=== PATIENT | male | born 1955 | race Caucasian/White ===

== ENCOUNTER 2022-11-28 16:22 | Outpatient (OUT) | payer BC, SELFPAY ==
--- NOTE | 2022-11-28 | XR_ITS ---
The [address] [address] Patient Name: YI VALVERDE MRN: [id number] date: 1955 Sex: M Assigned Patient Location: RAD Current Patient Location: RAD Accession/Order Number: [id number] Exam Date: 11/28/2022 16:35 Report Date: 11/28/2022 16:57 At the request of: MICHAEL BLANCO Procedure: XR chest 2V EXAM: XR chest 2V HISTORY: Cough, R05.9 COMPARISON: 01/03/2021 TECHNIQUE: PA and lateral views of the chest. FINDINGS: There is no focal airspace consolidation. There are prominence of interstitial markings at the left lung base. The lungs are mildly hyperinflated. The cardiomediastinal silhouette is not enlarged. No evidence of pleural effusion or pneumothorax are identified. No acute osseous abnormality. ACDF at lower cervical spine. XR/XR chest 2V IMPRESSION: No focal consolidation or pleural effusion. Lungs appear hyperinflated suggestive of obstructive lung disease. Mild atelectasis versus infiltrate in the left lung base. Recommend follow up imaging or CT chest if symptoms worsen or persist. Electronically authenticated by: ROBERT GUSMANU Date: 11/28/2022 16:57
== END 2022-11-28 16:23 | disposition home or self-care (01) ==
PROVIDERS: PCP Family Medicine; Visit Provider Family Medicine
DX: R05.9 Cough, unspecified (principal)
CPT/HCPCS: 71046

== ENCOUNTER 2022-12-11 07:59 | Outpatient (OUT) | payer BC, SELFPAY ==
--- NOTE | 2022-12-11 08:05 | CT_ITS ---
The [address] [address] Patient Name: YI VALVERDE MRN: [id number] date: 1955 Sex: M Assigned Patient Location: CT Current Patient Location: CT Accession/Order Number: [id number] Exam Date: 12/11/2022 08:10 Report Date: 12/11/2022 09:41 At the request of: MICHAEL BLANCO Procedure: CT chest wo con EXAM: CT chest wo con HISTORY: Atelectasis J98.11, Chronic Pulmonary Obstructive Disease COMPARISON: 11/28/2022 TECHNIQUE: Axial CT images were obtained of the chest without intravenous contrast. Multiplanar reconstructions were performed. CHEST FINDINGS: Lungs/Pleura: The lungs are clear. No pleural effusion or pneumothorax. Cardiovascular: The heart is normal in size. Mild coronary artery calcifications present.e The aorta and pulmonary arteries are unremarkable. Pericardium: No effusion. Mediastinum: Unremarkable. Lymph Nodes: No lymph node enlargement identified on this nonenhanced CT. Bones: No acute osseous abnormality. Cervical fusion hardware is partially visualized. Soft tissues: Unremarkable. Upper Abdomen: Unremarkable. CT/CT chest wo con IMPRESSION: 1. No acute abnormality of the chest. Electronically authenticated by: WESLEY VINES Date: 12/11/2022 09:41
--- NOTE | 2022-12-11 08:05 | RT_ITS ---
The [facility] Test Date: 2022-12-11 Pat Name: YI VALVERDE Department: Room: - Gender: Male Rod Placer: Devi aMldonado RRT : 1955 Requested By: MICHAEL BLANCO Order Number: [id number] Edgar MD: Leonides Arrieta Interpretive Statements Pulmonary function testing was completed according to ATS criteria. Findings were considered accurate and reproducible. Both pre- and post-bronchodilator values utilized for spirometry. No prior studies available for comparison. Spirometry (based on pre-bronchodilator values): -FEV1/FVC: Normal @ 80% -FEV1: Moderately reduced @ 78% -FVC: Mildly reduced @ 73% -There is no significant bronchodilator response. Lung volumes by plethysmography: -RV: Normal @ 94% -TLC: Normal @ 87% Diffusion capacity: -DLCO: Mild reduction @ 75% when corrected for Hb 14.7g/dL Flow-volume loop: -Mild restrictive pattern with an abnormal spike in the expiratory limb suggestive of a glottic maneuver (e.g. cough) Impressions: -Mild restictive pattern in spirometry, but no evidence of restriction as RV and TLC are normal: This is an obesity pattern based on BMI 46.2. Mild diffusion impairment. The obesity-induced restriction is obscuring any underlying obstruction. Mild diffusion impairment can be seen in, but not restricted to; cardiopulmonary vascular disorders, early interstitial lung disease, and early emphysema. Clinical correlation required. Electronically Signed On 12-11-2022 15:55:40 EDT by Leonides Arrieta
[2022-12-11 08:26] LABS: Hemoglobin 14.7 g/dL (14.0-18.0)
[2022-12-11] MEDS: ALBUTEROL SULFATE 2.5 MG/3 ML VIAL NEB IH (09:02)
== END 2022-12-11 08:00 | disposition home or self-care (01) ==
LOC: CT 07:59
PROVIDERS: PCP Family Medicine; Visit Provider Family Medicine
DX: J44.9 Chronic obstructive pulmonary disease, unspecified (principal); J98.11 Atelectasis
CPT/HCPCS: 36415; 71250; 85018; 94060; 94726; 94729

== ENCOUNTER 2023-03-10 16:49 | Outpatient (OUT) | payer BC, SELFPAY ==
[2023-03-10 17:08] LABS: Basophils Absolute Auto 0.1 10^3/uL (0.0-0.1); Eosinophils Absolute Auto 0.4 10^3/uL (0.0-0.7); Eosinophils Percent Auto 3.6 % (0.9-7.0); Hematocrit 47.4 % (42.0-54.0); Hemoglobin 15.8 g/dL (14.0-18.0); Immature Granulocytes Abs Auto 0.03 10^3/uL (0.00-0.03); Immature Granulocytes Pct Auto 0.3 % (0.0-0.5); Lymphocytes Percent Auto 18.4 % (20.5-60.0); Mean Corpuscular HGB Conc 33.3 g/dL (29.9-35.2); Mean Corpuscular Hemoglobin 31.5 pg (25.9-34.0); Mean Corpuscular Volume 94.4 fL (80.0-94.0); Mean Platelet Volume 9.4 fL (9.5-13.5); Monocytes Absolute Auto 1.1 10^3/uL (0.3-0.8); Monocytes Percent Auto 9.8 % (1.7-12.0); Neutrophils Absolute Auto 7.3 10^3/uL (1.4-6.5); Neutrophils Percent Auto 66.9 % (43.0-75.0); Platelet Count 325 10^3/uL (150-450); Red Blood Count 5.02 10^6/uL (4.70-6.10); White Blood Count 10.9 10^3/uL (4.0-11.0)
[2023-03-10 18:00] LABS: Alanine Aminotransferase 23 U/L (16-63); Albumin Globulin Ratio 0.9; Alkaline Phosphatase 119 U/L (46-116); Anion Gap 8.9; Aspartate Amino Transferase 15 U/L (15-37); BUN Creatinine Ratio 16.3; Bilirubin Total 0.5 mg/dL (0.2-1.0); Calcium 9.8 mg/dL (8.5-10.1); Carbon Dioxide 35.7 mmol/L (21.0-32.0); Chloride 100 mmol/L (98-107); Chol HDL Ratio 4.3; Cholesterol 226 mg/dL (<=200); Estimated GFR (African America >60 (>=60); Estimated GFR (Non-African Ame 50 (>=60); Free T3 3.14 pg/mL (2.18-3.98); Globulin 4.3 g/dL; Glucose 108 mg/dL (74-106); HDL Cholesterol 53 mg/dL (40-60); Potassium 3.6 mmol/L (3.5-5.1); Sodium 141 mmol/L (136-145); Thyroid Stimulating Hormone 5.191 uIU/mL (0.358-3.740); Total Protein 8.3 g/dL (6.4-8.2); Triglycerides 251 mg/dL (<=150); Uric Acid 7.4 mg/dL (3.5-7.2); VLDL CHOLESTEROL 50.2 mg/dL
[2023-03-10 18:01] LABS: Prostate Specific Antigen Scrn 0.65 ng/mL (<=4.00)
[2023-03-10 18:43] LABS: Estimated Average Glucose 137 mg/dL; Glycohemoglobin A1C 6.4 % (4.5-6.2)
[2023-03-12 12:09] LABS: Insulin 21.4 uIU/mL (2.6-24.9)
== END 2023-03-10 16:50 | disposition home or self-care (01) ==
LOC: LAB 16:53
PROVIDERS: PCP Family Medicine; Visit Provider Family Medicine
DX: R05.3 Chronic cough (principal); R53.83 Other fatigue; E78.5 Hyperlipidemia, unspecified; R73.09 Other abnormal glucose; Z12.5 Encounter for screening for malignant neoplasm of prostate; Z12.12 Encounter for screening for malignant neoplasm of rectum; I50.30 Unspecified diastolic (congestive) heart failure; I10 Essential (primary) hypertension
CPT/HCPCS: 36415; 80053; 80061; 83036; 83525; 83880; 84436; 84443; 84481; 84550; 85025; G0103

== ENCOUNTER 2023-03-12 13:04 | Outpatient (REF) | payer BC, SELFPAY ==
[2023-03-13 15:39] LABS: Occult Blood Negative
== END 2023-03-12 13:05 | disposition home or self-care (01) ==
LOC: LAB 13:04
PROVIDERS: PCP Family Medicine; Visit Provider Family Medicine
DX: Z12.12 Encounter for screening for malignant neoplasm of rectum (principal)
CPT/HCPCS: G0328

== ENCOUNTER 2023-09-12 09:32 | Outpatient (OUT) | payer BC, SELFPAY ==
--- NOTE | 2023-09-12 09:30 | CA_ITS ---
Patient Name: YI VALVERDE MR#: [id number] : 1955 Exam Date: 09/12/2023 Ordering Doctor: CATA BARAJAS ECHOCARDIOGRAM REPORT PROCEDURE: CA ECHO DOPPLER COMPLETE INDICATIONS: Ascending aortic aneurysm, hypertension COMPARISON: None. DESCRIPTION: COMPLETE ECHOCARDIOGRAM Real-time transthoracic echocardiography with 2D, M-mode, spectral and color flow Doppler performed. QUALITY: Technically difficult due to patients condition. 71 , 245#, BSA 2.25 m2, BP 158/104 LEFT VENTRICLE: Normal chamber size. Moderate concentric left ventricular hypertrophy. Normal systolic function. LV EF: Normal left ventricular ejection fraction, (>55%). DIASTOLIC: Normal diastolic function. ATRIAL SEPTUM: Visually appears intact. LEFT ATRIUM: Normal chamber size. RIGHT ATRIUM: Normal chamber size. RIGHT VENTRICLE: Normal chamber size. Normal right ventricular systolic function. TRICUSPID VALVE: Normal mobility and thickness. No stenosis with no regurgitation. MITRAL VALVE: Normal mobility and thickness. No evidence of mitral valve stenosis. There is no mitral annular calcification. Trivial mitral regurgitation. AORTIC VALVE: Normal trileaflet appearance. No visible sclerosis. Normal leaflet mobility. No evidence of aortic valve stenosis. No aortic regurgitation. AORTIC ROOT: The aortic root is mildly dilated measuring 4.0 cm. The ascending aorta is mildly dilated measuring 3.7 cm. Aortic arch is normal in size. PULMONIC VALVE: Normal thickness and mobility. No stenosis. Trivial regurgitation. PERICARDIUM: No evidence of pericardial effusion. IVC: Collapses with inspirations. IVC is normal in size. PLEURA: CONCLUSION: 1. Moderate concentric left ventricular hypertrophy with normal systolic function. LVEF is 55 to 60%. 2. Normal right ventricular size and systolic function. 3. Normal diastolic function. 4. No significant valvular dysfunction. 5. Mildly dilated aortic root measuring 4.0 cm. Mildly dilated ascending aorta measuring 3.7 cm. Adult Echocardiography Procedure Report Left Ventricle LVEDD (3.7 - 5.6 cm): 5.27 cm LVESD (2.2 - 4.0 cm): 3.95 cm LVIVS thickness (0.6 - 1.2 cm): 1.37 cm LVPW thickness (0.5 - 1.0 cm): 1.29 cm e': 0.05 m/s E - e': 9.28 LVOT Max Gradient: 2.04 mm[Hg] LVOT Area (cm2): 0.71 m/s Peak Velocity (LVOT): 0.71 m/s Mean Velocity (LVOT): 0.48 m/s LVOT Diameter 2.38 cm Left Atrium LA Volume Index (2D A2C): 20.04 ml/m2 Left Atrium Systolic Dimension: 3.54 cm Mitral Valve MV E to A Ratio: 0.71 Mitral Valve A-Wave Peak Velocity: 0.64 m/s Mitral Valve E-Wave Peak Velocity: 0.46 m/s Right Ventricle Aorta AO Root Diam: 4.04 cm Ascending Ao Diam: 3.47 cm Aortic Valve AoV Area (Peak Dago): 3.51 cm2, 3.51 cm2 AoV Area (VTI): 3.28 cm2, 3.28 cm2 Peak Velocity(Antegrade Flow): 0.91 m/s Peak Gradient(Antegrade Flow): 3.31 mm[Hg] Mean Velocity(Antegrade Flow): 0.60 m/s Mean Gradient(Antegrade Flow): 1.72 mm[Hg] Velocity Time Integral: 18.82 cm Tricuspid Valve Pulmonic Valve Peak Gradient: 3.59 mm[Hg], 2.54 mm[Hg] Right Atrium Dictated by: Jin Capellan M.D. on 09/12/2023 at 18:24 Approved by: Jin Capellan M.D. on 09/12/2023 at 18:29
== END 2023-09-12 09:33 | disposition home or self-care (01) ==
PROVIDERS: PCP Family Medicine; Visit Provider Nurse Practitioner
DX: I71.21 Aneurysm of the ascending aorta, without rupture (principal)
CPT/HCPCS: 93306

== ENCOUNTER 2023-10-21 09:37 | Outpatient (OUT) | payer BC, SELFPAY ==
--- NOTE | 2023-10-21 09:50 | CT_ITS ---
[address] [address] Patient Name: YI VALVERDE MRN: [id number] date: 1955 Sex: M Assigned Patient Location: LAB Current Patient Location: Accession/Order Number: [id number] Exam Date: 10/21/2023 10:05 Report Date: 10/22/2023 11:06 At the request of: HERIBERTO GOINS Procedure: CT angio abdomen pelvis EXAMINATION: CT angio chest, CT angio abdomen pelvis HISTORY: Aortic Aneurysm Without Rupture I71.9 COMPARISON: CT chest 12/11/2022, CT abdomen pelvis 01/03/2020 TECHNIQUE: After obtaining the patient's consent, CT images of the chest, abdomen and pelvis were obtained with non-ionic intravenous contrast material. Axial, Coronal, and Sagittal images. Multi-planar reformatted/3-D images were created to optimize visualization of vascular anatomy. Dose reduction techniques were achieved by using automated exposure control and/or adjustment of mA and/or kV according to patient size and/or use of iterative reconstruction technique. FINDINGS: PULM VASC: No pulmonary embolism or abnormal opacity. LUNGS: Mild chronic interstitial changes. No suspicious nodules or appreciable acute infiltrates. PLEURA: No mass, effusion, or pneumothorax. SOWMYA: No mass or adenopathy. MEDIASTINUM: No mass or adenopathy. CARDIAC: No enlargement, pericardial effusion, or pericardial thickening. CHEST WALL: No mass or axillary adenopathy. AORTA/VASCULAR: Ascending thoracic aorta approaches upper limits of normal, 3.9 cm in diameter. Unremarkable abdominal aorta. Mild atherosclerotic disease. CELIAC ARTERY: Moderate narrowing at origin. SMA: Mild atherosclerotic narrowing at origin. RENAL ARTERIES: Mild atherosclerotic narrowing. LIVER: No enlargement, atrophy, abnormal density, or significant focal lesion. BILIARY: No visible dilatation or calcification. PANCREAS: No lesion, fluid collection, ductal dilatation, or atrophy. SPLEEN: No enlargement or focal lesion. ADRENALS: No mass or enlargement. KIDNEYS: No mass, obstruction, or calcification. BOWEL/MESENTERY: No visible mass, obstruction, or bowel wall thickening. RETROPERITONEUM: No mass or adenopathy. LYMPHNODES: No pelvic lymphadenopathy. BLADDER: No stones or focal wall thickening. PELVIC ORGANS: Appropriate for age. ABDOMINAL WALL: No mass or hernia. BONES: No bony lesion or fracture. OTHER: Negative. CT/CT angio abdomen pelvis IMPRESSION: 1. No thoracic or abdominal aortic aneurysm or dissection. Mild atherosclerotic disease. Electronically authenticated by: OMID GU Date: 10/22/2023 11:06
--- NOTE | 2023-10-21 09:50 | CT_ITS ---
[address] [address] Patient Name: YI VALVERDE MRN: [id number] date: 1955 Sex: M Assigned Patient Location: LAB Current Patient Location: Accession/Order Number: [id number] Exam Date: 10/21/2023 10:05 Report Date: 10/22/2023 11:06 At the request of: HERIBERTO GOINS Procedure: CT angio chest EXAMINATION: CT angio chest, CT angio abdomen pelvis HISTORY: Aortic Aneurysm Without Rupture I71.9 COMPARISON: CT chest 12/11/2022, CT abdomen pelvis 01/03/2020 TECHNIQUE: After obtaining the patient's consent, CT images of the chest, abdomen and pelvis were obtained with non-ionic intravenous contrast material. Axial, Coronal, and Sagittal images. Multi-planar reformatted/3-D images were created to optimize visualization of vascular anatomy. Dose reduction techniques were achieved by using automated exposure control and/or adjustment of mA and/or kV according to patient size and/or use of iterative reconstruction technique. FINDINGS: PULM VASC: No pulmonary embolism or abnormal opacity. LUNGS: Mild chronic interstitial changes. No suspicious nodules or appreciable acute infiltrates. PLEURA: No mass, effusion, or pneumothorax. SOWMYA: No mass or adenopathy. MEDIASTINUM: No mass or adenopathy. CARDIAC: No enlargement, pericardial effusion, or pericardial thickening. CHEST WALL: No mass or axillary adenopathy. AORTA/VASCULAR: Ascending thoracic aorta approaches upper limits of normal, 3.9 cm in diameter. Unremarkable abdominal aorta. Mild atherosclerotic disease. CELIAC ARTERY: Moderate narrowing at origin. SMA: Mild atherosclerotic narrowing at origin. RENAL ARTERIES: Mild atherosclerotic narrowing. LIVER: No enlargement, atrophy, abnormal density, or significant focal lesion. BILIARY: No visible dilatation or calcification. PANCREAS: No lesion, fluid collection, ductal dilatation, or atrophy. SPLEEN: No enlargement or focal lesion. ADRENALS: No mass or enlargement. KIDNEYS: No mass, obstruction, or calcification. BOWEL/MESENTERY: No visible mass, obstruction, or bowel wall thickening. RETROPERITONEUM: No mass or adenopathy. LYMPHNODES: No pelvic lymphadenopathy. BLADDER: No stones or focal wall thickening. PELVIC ORGANS: Appropriate for age. ABDOMINAL WALL: No mass or hernia. BONES: No bony lesion or fracture. OTHER: Negative. CT/CT angio chest IMPRESSION: 1. No thoracic or abdominal aortic aneurysm or dissection. Mild atherosclerotic disease. Electronically authenticated by: OMID GU Date: 10/22/2023 11:06
[2023-10-21 10:00] LABS: Estimated GFR (African America >60 (>=60); Estimated GFR (Non-African Ame 59 (>=60)
== END 2023-10-21 09:38 | disposition home or self-care (01) ==
LOC: LAB 09:38
PROVIDERS: PCP Family Medicine; Visit Provider Surgery
DX: I71.9 Aortic aneurysm of unspecified site, without rupture (principal)
CPT/HCPCS: 36415; 71275; 74174; 82565; Q9967

== ENCOUNTER 2024-01-26 15:50 | Outpatient (OUT) | payer BC, SELFPAY ==
--- OUTSIDE RECORDS SUMMARY | 2024-01-26 15:58 | XMS_ITS | CCD ---
Author Organization [facility] Care Team Providers Care Rn First Assist Name Role Phone PHYSICIAN, DEFAULT Admitting Unavailable PHYSICIAN, DEFAULT Attending Unavailable PROVIDER, UNKNOWN Attending Unavailable PROVIDER, UNKNOWN Admitting Unavailable Sree Childs Unavailable Yue Tenorio Unavailable CATA BARAJAS Admitting Unavailable CATA BARAJAS Attending Unavailable NOA ., DR RODRIGUEZ Primary Care Unavailable HOY ., DR RODRIGUEZ Admitting Unavailable HOY ., DR RODRIGUEZ Attending Unavailable HOY ., DR RODRIGUEZ Primary Care Unavailable HOY ., DR RODRIGUEZ Consulting Unavailable RODOLFO BOWSER Admitting Unavailable RODOLFO BOWSER Attending Unavailable HOY ., DR RODRIGUEZ Primary Care Unavailable RODOLFO BOWSER Consulting Unavailable MISC, DR BECKETT Admitting Unavailable MISC, DR BECKETT Attending Unavailable HOY ., DR RODRIGUEZ Primary Care Unavailable HOY ., DR RODRIGUEZ Admitting Unavailable HOY ., DR RODRIGUEZ Attending Unavailable HOY ., DR RODRIGUEZ Primary Care Unavailable HOY ., DR RODRIGUEZ Admitting Unavailable HOY ., DR RODRIGUEZ Attending Unavailable HOY ., DR RODRIGUEZ Primary Care Unavailable NOA ., DR RODRIGUEZ Consulting Unavailable John Islas Unavailable [phone] MD Michael Latham Primary Care Provider [phone] MD John Islas Attending Provider Michael Latham Primary Care Physician Haris LAWSON Attending Unavailable YARELY MATTHEWS Attending Unavailable MICHAEL LATHAM Referring Unavailable John Islas Attending UnavailJohn King Admitting Unavaila Michael Garcia Primary Care Unavailable HERIBERTO GOINS Referring Unavailable HERIBERTO GOINS Attending Unavailable GLYNN GABRIEL Attending Unavailable JENN, CATA Attending Unavailable CATA BARAJAS Attending Unavailable BRISEIDA, HERIBERTO Referring Unavailable GOINS, HERIBERTO Referring Unavailable GOINS, HERIBERTO Referring Unavailable Allergies Allergy Classification Reported Allergen(s) Allergy Type Date of Onset Reaction(s) Facility (4 sources) Adhesive agent; Translations: [ADHESIVE] Drug allergy (disorder) 1 Redness of Skin [facility] Repository (3 sources) Amino Acids; Translations: [lisinopril] Drug Allergy [facility] Repository (2 sources) Adhesive bandage; Translations: [Adhesive Bandage] Drug allergy Eruption of skin (disorder) [facility] [place] (1 source) Lisinopril; Translations: [lisinopril] Drug Allergy Cough (finding) [facility] [place] (1 source) Doxazosin; Translations: [Cardura] Drug Allergy [facility] Repository (1 source) Adhesive agent Drug allergy (disorder) 3 [facility] Repository Medications Current Medications Medication Drug Class(es) Dates Sig (Normalized) Sig (Original) acetaminophen 325 mg / oxyCODONE hydrochloride 5 mg oral tablet (1 source) Opioid Agonist Start: 01-06-2020 take 1 tablet by mouth every six hours Oxycodone-Acetam inophen Active 1 TAB PO Q6H January 05, 2020 11:00pm Albuterol (1 source) beta2-Adrenergic Agonist Start: 03-19-2023 take 2 puff(s) by inhalation four times daily Albuterol (Eqv-Ventolin HFA) 2 puff(s), Inhalation, QID Shortness of breath or wheezing, Refill(s) 0 Start Date: 03/19/23 Status: Ordered amLODIPine 10 mg oral tablet (5 sources) Dihydropyridine Calcium Channel Terrell Start: 04-04-2023 take 2 tablets by mouth once daily amLODIPine 10 mg Tab 20 mg = 2 tab(s), Oral, Daily, Refills(s) 0 Start Date: 04/04/23 Status: Ordered take 1 tablet by maribel th every twenty-four hours amLODIPine Besylate 10 MG 1 tablet Orall y Once a day Active ARIPiprazole 2 mg oral tablet (2 sources) Atypical Antipsychotic take 1 tablet by mouth every twenty-four hours ARIPiprazole 2 MG 1 tablet Orally Once a day Active Aspir-81 (2 sources) Aspir-81 Active aspirin 81 mg delayed release oral tablet (6 sources) Platelet Aggregation Inhibitor, Nonsteroidal Anti-inflammatory Drug Start: 020 take 1 tablet by mouth once daily aspirin 81 mg Oral EC Tab 81 mg = 1 tab(s), Oral, Daily, Refills(s) 0 Start Date: 03/19/23 Status: Ordered atorvastatin 80 mg oral tablet (5 sources) HMG-CoA Reductase Inhibitor Start: 021 take 1 tablet by mouth once daily atorvastatin 80 mg Tab 80 mg = 1 tab(s), Oral, Daily, Refills(s) 0 Start Date: 02/22/21 Status: Ordered take 1 tablet by maribel th every twenty-four hours Atorvastatin Calcium 40 MG 1 tablet Oral ly Once a day Active 24 hr buPROPion hydrochloride 300 mg extended release oral tablet (5 sources) Aminoketone Start: 03-19-2023 take 1 tablet by mouth once daily Wellbutrin XL 300 mg/24 hours Tab-ER 300 mg = 1 tab(s), Oral, Daily, Refills(s) 0 Start Date: 03/19/23 Status: Ordered take 1 tablet by maribel every twenty-four hours buPROPion HCl ER (SR) 150 MG 1 tablet in the morning Orally Once a day Active carvedilol 25 mg oral tablet (5 sources) alpha-Adrenergic Terrell, beta-Adrenergic Terrell Start: 03-19-2023 take 1 tablet by mouth twice daily carvedilol 25 mg Tab 25 mg = 1 tab(s), Oral, BID, Refills(s) 0 Start Date: 03/19/23 Status: Ordered cloNIDine hydrochloride 0.3 mg oral tablet (8 sources) Central alpha-2 Adrenergic Agonist Start: 03-10-2020 cloNIDine 0.3 mg Tab See Instructions, Take one tablet QAM and two QPM Start Date: 03/10/20 Status: Ordered Start: 01-06-2020 take 0.1 mg by mouth twice susan ly Clonidine Hcl Active 0.1 MG PO Twice daily January 05, 2020 11:00pm take 1 tablet by maribel th twice daily cloNIDine HCl 0.3 MG 1 tablet Orally twice daily Active cloNIDine HCl Ac tive codeine sulfate 15 mg oral tablet (2 sources) Opioid Agonist Start: 01-01-2023 take 1 tablet by mouth four times daily as needed Codeine Sulfate 15 MG 1 tablet as needed Orally up to four times a day for 30 days Dec, Active codeine phosphate 2 mg/ml / guaiFENesin 20 mg/ml oral solution (2 sources) Opioid Agonist Start: 01-01-2023 take 10 mL by mouth every four hours as needed guaiFENesin-Codei ne 100-10 MG/5ML 10 mL as needed Orally every 4 hrs Dec, Active DULoxetine (2 sources) Serotonin and Norepinephrine Reuptake Inhibitor DULoxetine HCl Active Eye Health - (4 sources) Eye Health - as directed Orally Active Fish Oils (4 sources) Fish Oil Active fluticasone propionate 0.05 mg/actuat metered dose nasal spray (4 sources) Corticosteroid Start: 12-26-2022 Fluticasone Propionate 50 MCG/ACT 2 spray in left nostril, 1 spray in right nostril Nasally Once a day for 30 days Dec, Active Start: 12-26-2022 Fluticasone Pr opionate 50 MCG/ACT 2 spray in left nostril, 1 spray in right nostril Nasally Once a day for 30 days Dec, Active fluticasone / vilanterol (1 source) Corticosteroid, beta2-Adrenergic Agonist Start: 02-22-2021 take 1 puff(s) by inhalation once daily Breo Ellipta 100 mcg-25 mcg inhalation powder 1 puff(s), Inhalation, Daily, Refill(s) 2, 30 dose unit Start Date: 02/22/21 Status: Ordered hydroCHLOROthiazide 12.5 mg / irbesartan 150 mg oral tablet (5 sources) Thiazide Diuretic, Angiotensin 2 Receptor Terrell Start: 03-10-2020 take 1 tablet by mouth twice daily hydrochlorothi azide-irbesart an 12.5 mg-150 mg Tab 1 tab(s), Oral, BID, Refill(s) 0 Start Date: 03/10/20 Status: Ordered take 1 tablet by maribel every twenty-four hours Irbesartan-hydroCHLOROthiazide 150-12.5 MG 1 tablet Orally Once a day Active irbesartan 150 mg oral tablet (2 sources) Angiotensin 2 Receptor Terrell take 1 tablet by mouth every twenty-four hours Irbesartan 150 MG 1 tablet Orally Once a day Active Irbesartan-Hydrochlor othiazide (1 source) Start: take 1 tablet by mouth once daily at bedtime Irbesartan-Hydrochlo rothiazide Active 1 TAB PO Daily at bedtime January 05, 2020 11:00pm levothyroxine sodium 0.075 mg oral tablet (1 source) l-Thyroxine Start: take 1 tablet by mouth once daily levothyroxine 75 mcg (0.075 mg) Tab 75 mcg = 1 tab(s), Oral, Daily, Refills(s) 0 Start Date: 03/19/23 Status: Ordered meloxicam 15 mg oral tablet (1 source) Nonsteroidal Anti-inflammatory Drug Start: take 15 mg by mouth once daily in the morning Meloxicam Active 15 MG PO Every morning January 05, 2020 11:00pm metoclopramide 10 mg oral tablet (1 source) Dopamine-2 Receptor Antagonist Start: take 1 tablet by mouth three times daily Reglan 10 mg Tab 10 mg = 1 tab(s), Oral, TID, Refills(s) 0 Start Date: 04/04/23 Status: Ordered metoprolol tartrate 100 mg oral tablet (2 sources) beta-Adrenergic Terrell take 1 capsule by mouth once daily Metoprolol Succinate 100 MG 1 capsule Orally Once a day Active mirtazapine 30 mg oral tablet (5 sources) Start: take 1 tablet by mouth once daily at bedtime mirtazapine 30 mg Tab 30 mg = 1 tab(s), Oral, Once a day (at bedtime), Refills(s) 0 Start Date: 03/19/23 Status: Ordered Multi Vitamin+ (1 source) Start: Multi Vitamin+ Refill(s) 0 Start Date: 01/05/20 Status: Ordered Multivitamin preparation (4 sources) Multivitamin Act eyal Multivitamin-Minerals -Lutein (Multivitamin 50 Plus) Tablet (1 source) Start: Multivitamin-Mineral s-Lutein (Multivitamin 50 Plus) Tablet Active 1 TAB PO Daily at bedtime January 05, 2020 11:00pm Naproxen (2 sources) Nonsteroidal Anti-inflammatory Drug Naproxen Active [place] 0-Zjc-Ign-Fish Oil (Fish Oil) 1,200 (144-216) mg Capsule (1 source) Start: take 1 capsule by mouth once daily at bedtime [place] 6-Qeu-Lcc-Fish Oil (Fish Oil) 1,200 (144-216) mg Capsule Active 1200 CAP PO Daily at bedtime January 05, 2020 11:00pm omeprazole 40 mg delayed release oral capsule (4 sources) Proton Pump Inhibitor take 1 capsule by mouth once daily Omeprazole 40 MG 1 capsule 30 minutes before morning meal Orally Once a day Active oxyCODONE hydrochloride 5 mg oral capsule (1 source) Opioid Agonist Start: take 5 mg by mouth every eight hours Oxycodone Active 5 MG PO Q8H 10 3 January 07, 2020 pantoprazole 40 mg delayed release oral tablet (1 source) Proton Pump Inhibitor Start: take 1 tablet by mouth once daily Pantoprazole [address] Tab 40 mg = 1 tab(s), Oral, Daily, Refills(s) 0 Start Date: 04/04/23 Status: Ordered Probiotic (4 sources) Probiotic Active simvastatin 40 mg oral tablet (3 sources) HMG-CoA Reductase Inhibitor Start: take 40 mg by mouth once daily at bedtime Simvastatin Active 40 MG PO Daily at bedtime January 05, 2020 11:00pm spironolactone 25 mg oral tablet (2 sources) Aldosterone Antagonist Spironolactone 25 MG 1 tablet Orally Active tamsulosin hydrochloride 0.4 mg oral capsule (1 source) alpha-Adrenergic Terrell Start: take 0.4 mg by mouth once daily in the morning Tamsulosin Active 0.4 MG PO Every morning January 05, 2020 11:00pm Testosterone (4 sources) Androgen Testosterone Act eyal tiZANidine 4 mg oral tablet (1 source) Central alpha-2 Adrenergic Agonist Start: take 2 tablets by mouth at bedtime tiZANidine 4 mg Tab 8 mg = 2 tab(s), Oral, Bedtime, Refills(s) 0 Start Date: 03/19/23 Status: Ordered Trelegy Ellipta 200 mcg-62.5 mcg-25 mcg/inh inhalation powder (1 source) Start: 11-15-2 023 take 1 puff(s) by inhalation once daily Trelegy Ellipta 200 mcg-62.5 mcg-25 mcg/inh inhalation powder 1 puff(s), Inhalation, Daily, Refill(s) 0 Start Date: 03/19/23 Status: Ordered Completed/Discontinued Medications Medication Drug Class(es) Dates Sig (Normalized) Sig (Original) benzonatate 100 mg oral capsule (2 sources) Non-narcotic Antitussive take 1 capsule by mouth every eight hours Benzonatate 100 MG 1 capsule as needed Orally Three times a day for 30 days Not-Taking/PRN ciprofloxacin 500 mg oral tablet (1 source) Quinolone Antimicrobial Start: 01-06-2020 End: 01-07-2020 take 500 mg by mouth once daily in the morning Ciprofloxacin Hcl Discontinued 500 MG PO Every morning January 05, 2020 11:00pm January 07, 2020 7:54am ketorolac tromethamine 10 mg oral tablet (1 source) Nonsteroidal Anti-inflammatory Drug, Cyclooxygenase Inhibitor Start: 01-06-2020 End: 01-06-2020 Ketorolac Discontinued TABLET January 05, 2020 11:00pm January 06, 2020 7:18am ondansetron 4 mg disintegrating oral tablet (1 source) Serotonin-3 Receptor Antagonist Start: 01-06-2020 End: 01-06-2020 Ondansetron Discontinued January 05, 2020 11:00pm January 06, 2020 7:16am Triamcinolone (10 sources) Corticosteroid Start: 04-10-2021 Kenalog -40 mg Apr, 40 mg Start: 12-19-2020 Kenalog -40 mg Dec, 40 mg Problems Active Problems Problem Classification Problem Date Documented Date Episodic/Chronic Aortic; peripheral; and visceral artery aneurysms (5 sources) Aneurysm of ascending aorta; Translations: [Aortic ectasia, unspecified site] Onset: 07-25-2022 03-19-2023 Chronic Calculus of urinary tract (1 source) Kidney stone 01-05-2020 Episodic Cardiac dysrhythmias (1 source) Palpitations; Translations: [Palpitations] 03-23-2021 Episodic Chronic obstructive pulmonary disease and bronchiectasis (5 sources) Chronic obstructive lung disease; Translations: [Chronic obstructive pulmonary disease, unspecified] 03-19-2023 Chronic Conduction disorders (3 sources) Right bundle branch block; Translations: [Unspecified right bundle-branch block] Onset: 05-30-2023 03-19-2023 Chronic Diabetes mellitus without complication (1 source) Diabetes mellitus 03-19-2023 Chronic Disorders of lipid metabolism (7 sources) Mixed hyperlipidemia; Translations: [Mixed hyperlipidemia] Onset: 12-07-2021 Chronic Esophageal disorders (2 sources) Gastro-esophageal reflux disease without esophagitis; Translations: [Gastro-esophageal reflux disease without esophagitis] Onset: 10-07-2023 Chronic Essential hypertension (8 sources) Essential (primary) hypertension; Translations: [Essential hypertension] Onset: 01-05-2022 Chronic Genitourinary symptoms and ill-defined conditions (1 source) Nocturia 01-05-2020 Episodic Hyperplasia of prostate (1 source) Benign prostatic hypertrophy with outflow obstruction 07-17-2020 Chronic Mood disorders (1 source) Depressive disorder 03-19-2023 Chronic Neoplasms of unspecified nature or uncertain behavior (1 source) Neoplasm of uncertain behavior of skin 09-23-2018 Episodic Osteoarthritis (12 sources) Arthritis of right glenohumeral joint; Translations: [Primary osteoarthritis, right shoulder] Onset: 04-10-2021 Resolved: 04-10-2021 Chronic Other and unspecified benign neoplasm (1 source) Benign neoplasm of bladder 02-22-2021 Episodic Other connective tissue disease (6 sources) Supraspinatus tear; Translations: [Unspecified rotator cuff tear or rupture of right shoulder, not specified as traumatic] Episodic Other lower respiratory disease (1 source) Other disorders of lung Episodic Other lower respiratory disease (3 sources) Chronic cough; Translations: [Chronic cough] Onset: 04-04-2023 Episodic Other nutritional; endocrine; and metabolic disorders (2 sources) Body mass index 40+ - severely obese; Translations: [Body mass index (BMI) 45.0-49.9, adult] Onset: 04-04-2023 Chronic Other nutritional; endocrine; and metabolic disorders (1 source) Morbid obesity 03-19-2023 Chronic Other screening for suspected conditions (not mental disorders or infectious disease) (5 sources) Standard chest X-ray abnormal; Translations: [Abnormal findings on diagnostic imaging of other specified body structures] 03-10-2020 Chronic Other skin disorders (1 source) Multiple skin tags 09-23-2018 Episodic Other skin disorders (1 source) Senile hyperkeratosis 10-07-2018 Episodic Other upper respiratory disease (5 sources) Allergic rhinitis; Translations: [Allergic rhinitis, unspecified] 03-19-2023 Chronic Other upper respiratory disease (1 source) Allergic rhinitis, unspecified Chronic Other upper respiratory infections (1 source) Acute upper respiratory infection, unspecified Episodic Spondylosis; intervertebral disc disorders; other back problems (1 source) Cervical disc disorder 03-19-2023 Chronic Thyroid disorders (2 sources) Hypothyroidism, unspecified; Translations: [Hypothyroidism, unspecified] Onset: 10-07-2023 Chronic Unclassified (1 source) ANEURYSM ASCEND AORTA W/O RUPTURE; Translations: [ANEURYSM ASCEND AORTA W/O RUPTURE] Onset: 08-18-2022 Unclassified (1 source) Cough, unspecified; Translations: [Cough, unspecified] Onset: 03-18-2023 Unclassified (1 source) Aneurysm of the ascending aorta, without rupture; Translations: [Aneurysm of the ascending aorta, without rupture] Onset: 07-25-2022 Past or Other Problems Problem Classification Problem Date Documented Da te Episodic/Chronic Other connective tissue disease (1 source) Unspecified rotator cuff tear or rupture of right shoulder, not specified as traumatic Onset: 04-10-2021 Resolved: 04-10-2021 Episodic Other non-traumatic joint disorders (1 source) Pain in right shoulder Onset: 04-10-2021 Resolved: 04-10-2021 Episodic Other screening for suspected conditions (not mental disorders or infectious disease) (5 sources) Encounter for screening for malignant neoplasm of rectum; Translations: [Encounter for screening for malignant neoplasm of prostate] Onset: 12-08-2021 Episodic Unclassified (1 source) Cough R05.9 Unclassified (1 source) Contact with and (suspected) exposure to covid-19 Z20.822 Unclassified (1 source) Aneurysm of the ascending aorta, without rupture; Translations: [Aneurysm of the ascending aorta, without rupture] Onset: 10-10-2023 Viral infection (1 source) COVID-19 Onset: 11-19-2021 Resolved: 11-19-2021 Results Test Name Value Interpretation Reference Range Facility Office Visiton 01-16-2024 Follow-up visit [id number] Yi Driver 1955 M Date Provider Department Center 01/16/2024 Yazan-JENN, CATA BH CARD [facility] Family History Problem Relation Age of Onset Coronary artery disease Sister Coronary artery disease Maternal Grandfather Family Status - Relation Status Age at Sister Maternal Grandfather Level of Service:82563 [place] OFFICE/OUTPATIENT ESTABLISHED LOW MDM 20 MIN Reason for Visit and Comments: Hyperlipidemia [182] Hypertension [141212] - Pt here for three month follow up [facility] 36on 10-27-2023 36 Per ALG pt is to double coreg [facility] Telephoneon 10-24-2023 Telephone [id number] Yi Driver 1955 M Provider Department Center 10/24/2023 113-PATRICIA, HVCVASENDO [facility] Family History Problem Relation Age of Onset Coronary artery disease Sister Coronary artery disease Maternal Grandfather Family Status - Relation Status Age at Sister Maternal Grandfather [facility] 36on 10-15-2023 36 Patient called with BP's for you since you restarted carvedilol. 147/100 136/109 HR 115 143/106 HR 109 He takes carvedilol at 4am and 4pm. The readings he gave me were taking just before his second dose at 4pm. Did you want to change the dosage? Please advise. Thanks. [facility] Telephoneon 10-15-2023 Telephone [id number] Yi Driver 1955 M Provider Department Center 10/15/2023 928-SRIKANTH RITCHIE MARY [facility] Family History Problem Relation Age of Onset Coronary artery disease Sister Coronary artery disease Maternal Grandfather Family Status - Relation Status Age at Sister Maternal Grandfather [facility] Office Visiton 10-10-2023 Follow-up visit [id number] Yi Driver 1955 M Date Provider Department Center 10/10/2023 3848-GLYNN GABRIEL M[facility] Family History Problem Relation Age of Onset Coronary artery disease Sister Coronary artery disease Maternal Grandfather Family Status - Relation Status Age at Sister Maternal Grandfather Level of Service:14878 [place] OFFICE/OUTPATIENT ESTABLISHED LOW MDM [address] [facility] Orders Onlyon 10-10-2023 Orders Only [id number] Yi Driver 1955 M Date Provider Department Center 10/10/2023 895-ANA BOURGEOIS MARY [facility] Family History Problem Relation Age of Onset Coronary artery disease Sister Coronary artery disease Maternal Grandfather Family Status - Relation Status Age at Sister Maternal Grandfather [facility] Office Visiton 10-07-2023 Follow-up visit [id number] Yi Driver 1955 M Date Provider Department Center 10/07/2023 50489-IPORRHERIBERTO GOINS HVCVASENDO [facility] Family History Problem Relation Age of Onset Coronary artery disease Sister Coronary artery disease Maternal Grandfather Family Status - Relation Status Age at Sister Maternal Grandfather Level of Service:54164 NC OFFICE/OP CONSLTJ NEW/EST PT HIGH MDM 55 MINUTES Reason for Visit and Comments: New Patient [632] - Ascending aortic aneurysm, Ref by Cata Barajas [facility] 36on 09-22-2023 36 Regarding echo result from 09/12/2023: Srikanth. He was supposed to F/U with CT Surgery in August? See if he did somewhere other than [place], If not he needs an appointment. So AO root was 3.5 cm on last echo (2022) and now 4.0 cm- and ascending aorta is 3.7 cm. Make sure his B/P is staying controlled < 130/80 please and thank you From: Srikanth Ritchie MA Sent: 09/18/2023 3:34 PM EDT To: Cata Barajas NP Subject: RE: Scan He was never scheduled with CT surgery. I don't see a referral to them either. I'm guessing he needs one now? TIGIST Mendoza MA Well sure, increase of 0.5 cm is worrisome Spoke with patient's and she said patient is agreeable to CT surgery referral. Order [facility] surgery at [facility]. Normal [facility] Office Visiton 05-30-2023 Follow-up visit [id number] Yi Driver 1955 M Date Provider Department Center 05/30/2023 120-CATA BARAJAS Family History Problem Relation Age of Onset Coronary artery disease Sister Coronary artery disease Maternal Grandfather Family Status - Relation Status Age at Sister Maternal Grandfather Level of Service:66498 NC OFFICE/OUTPATIENT ESTABLISHED MOD MDM 30 MIN Normal [facility] COVID/FLU/RSV RT-PCRon 04-25 SARS-CoV-2 (COVID-19) RNA TEGAN+probe Ql (Unsp spec) Negative [facility] [employer] Other COVID/FLU/RSV RT-PCR Negative [facility] Other Facesheeton 04-07-2023 Facesheet [id number] 6#1.00TIFF Normal [facility] Ambulatory Visit Summaryon 1 06-05-2022 Ambulatory Visit Summary YI DRIVER :1955 Visit Date:04/04/2023 Ambulatory Visit Instructions Your Care Team Attending Physician - LULU JEFFERSON, Haris De Leon Primary Care Physician - Noa JEFFERSON, Michael This Is Your Medications List Contact prescribing physician if questions or concerns albuterol (Albuterol (Eqv-Ventolin HFA)) amlodipine (amLODIPine 10 mg Tab) aspirin (aspirin 81 mg Oral EC Tab) atorvastatin (atorvastatin 80 mg Tab) buPROPion (Wellbutrin XL 300 mg/24 hours Tab-ER) carvedilol (carvedilol 25 mg Tab) clonidine (cloNIDine 0.3 mg Tab) fluticasone-vilanter ol (Breo Ellipta 100 mcg-25 mcg inhalation powder) fluticasone/umeclidi nium/vilanterol (Trelegy Ellipta 200 mcg-62.5 mcg-25 mcg/inh inhalation powder) hydrochlorothiazide- irbesartan (hydrochlorothiazide -irbesartan 12.5 mg-150 mg Tab) levothyroxine (levothyroxine 75 mcg (0.075 mg) Tab) metoclopramide (Reglan 10 mg Tab) mirtazapine (mirtazapine 30 mg Tab) multivitamin (Multi Vitamin+) pantoprazole (Pantoprazole [address] Tab) tizanidine (tiZANidine 4 mg Tab) Procedures Performed Cystoscopy (07/17/2020), exicison skin lesions (09/30/2018), Ankle fusion, Arthroscopy of shoulder, History of cervical spine surgery, Repair of umbilical hernia. Discharge Vitals Heart Rate (Peripheral) 70 Respiratory Rate 16 Blood Pressure 120/84 Height 175 cm Height 69 in Weight 142.9 kg Weight 314.38 lb BMI 46.66 Medications What How Much When Instructions Unchanged albuterol (Albuterol (Eqv-Ventolin HFA)) 2 Puffs Inhalation 4 times a day as needed for Shortness of breath or wheezing Contact prescribing physician if questions or concerns Unchanged amlodipine (amLODIPine 10 mg Tab) 2 Tablets By Mouth Every day Contact prescribing physician if questions or concerns Unchanged aspirin (aspirin 81 mg Oral EC Tab) 1 Tablets By Mouth Every day Contact prescribing physician if questions or concerns Unchanged atorvastatin (atorvastatin 80 mg Tab) 1 Tablets By Mouth Every day Contact prescribing physician if questions or concerns Unchanged buPROPion (Wellbutrin XL 300 mg/ 24 hours Tab-ER) 1 Tablets By Mouth Every day Contact prescribing physician if questions or concerns Unchanged carvedilol (carvedilol 25 mg Tab) 1 Tablets By Mouth 2 times a day Contact prescribing physician if questions or concerns Unchanged clonidine (cloNIDine 0.3 mg Tab) See instructions Take one tablet QAM and two QPM Contact prescribing physician if questions or concerns Unchanged fluticasone-vilanter ol (Breo Ellipta 100 mcg-25 mcg inhalation powder) 1 Puffs Inhalation Every day 30 dose unit Contact prescribing physician if questions or concerns Unchanged fluticasone/ umeclidinium/ vilanterol (Trelegy Ellipta 200 mcg-62.5 mcg-25 mcg/ inh inhalation powder) 1 Puffs Inhalation Every day Contact prescribing physician if questions or concerns Unchanged hydrochlorothiazide- irbesartan (hydrochlorothiazide -irbesartan 12.5 mg-150 mg Tab) 1 Tablets By Mouth 2 times a day Contact prescribing physician if questions or concerns Unchanged levothyroxine (levothyroxine 75 mcg (0.075 mg) Tab) 1 Tablets By Mouth Every day Contact prescribing physician if questions or concerns Unchanged metoclopramide (Reglan 10 mg Tab) 1 Tablets By Mouth 3 times a day Contact prescribing physician if questions or concerns Unchanged mirtazapine (mirtazapine 30 mg Tab) 1 Tablets By Mouth Once a day (at bedtime) Contact prescribing physician if questions or concerns Unchanged multivitamin (Multi Vitamin+) Contact prescribing physician if questions or concerns Unchanged pantoprazole (Pantoprazole [address] Tab) 1 Tablets By Mouth Every day Contact prescribing physician if questions or concerns Unchanged tizanidine (tiZANidine 4 mg Tab) 2 Tablets By Mouth At bedtime Contact prescribing physician if questions or concerns Medications and Immunizations Administered Not Given influenza virus vaccine, inactivated, Patient Refuses Allergies lisinopril (Cough) Adhesive Bandage (Rash) Problems Ongoing - Any problem that you are currently receiving treatment for. Abnormal CT scan, pelvis Allergic rhinitis Aneurysm of ascending aorta Arthritis Bladder tumor BMI 45.0-49.9, adult BPH with obstruction/lower urinary tract symptoms Cervical disc disease Chronic cough Chronic obstructive lung disease Depression Diabetes Essential hypertension HTN (hypertension) Kidney stone Mixed hyperlipidemia Morbid obesity Neoplasm of uncertain behavior of skin Nocturia Right bundle branch block Seborrheic keratoses Skin tags, multiple acquired Patient Survey You may receive a survey via text or e-mail asking about your office visit. Please share your experience with us by completing your survey. We appreciate your feedback and thank you for choosing us for your care. 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 Order #: [id number] CLICK HERE TO VIEW EXAM ECHOCARDIOGRAM REPORT PROCEDURE: CARDIO PULMONARY ECHOCARDIO M/2D COMP INDICATIONS: Aneurysm of ascending aorta, hypertesnion COMPARISON: None. DESCRIPTION: COMPLETE ECHOCARDIOGRAM Real-time transthoracic echocardiography with 2D, M-mode, spectral and color flow Doppler performed. QUALITY: Technically difficult due to patients condition. LEFT VENTRICLE: Normal chamber size. Mild concentric left ventricular hypertrophy. LV EF: Normal left ventricular ejection fraction, (55%). DIASTOLIC: Normal diastolic function. ATRIAL SEPTUM: LEFT ATRIUM: Normal chamber size. RIGHT ATRIUM: Normal chamber. RIGHT VENTRICLE: Normal chamber size. Normal right ventricular systolic function. TRICUSPID VALVE: Normal mobility and thickness. No stenosis with trivial regurgitation. MITRAL VALVE: Normal mobility and thickness. No evidence of mitral valve stenosis. There is no mitral annular calcification. No mitral regurgitation. AORTIC VALVE: Normal trileaflet appearance. No visible sclerosis. Normal leaflet mobility. No evidence of aortic valve stenosis. No aortic regurgitation. AORTIC ROOT: Normal in size the ascending aorta is normal in size, measuring 3.5 cm, measuring 3.5 cm. PULMONIC VALVE: Not well visualized. No stenosis. Trivial regurgitation. PERICARDIUM: No evidence of pericardial effusion. IVC: Collapses with inspirations. PLEURA: CONCLUSION: 1. Normal ventricular systolic function. Mild concentric left ventricular hypertrophy. LVEF is 55%. 2. No significant valvular dysfunction. 3. Normal size ascending aorta and aortic root at 3.5 cm. 4. No pericardial effusion. Adult Echocardiography Procedure Report Left Ventricle LVEDD (3.7 - 5.6 cm): 4.89 cm LVESD (2.2 - 4.0 cm): 2.92 cm LVIVS thickness (0.6 - 1.2 cm): 1.22 cm LVPW thickness (0.5 - 1.0 cm): 1.42 cm e': 0.08 m/s E - e': 6.70 LVOT Max Gradient: 1.47 mm[Hg] Peak Velocity (LVOT): 0.61 m/s LVOT Diameter 2.29 cm Left Ventricular Ejection Fraction: 55% Left Atrium Left Atrium Systolic Dimension: 3.43 cm Mitral Valve MV E to A Ratio: 1.05 Mitral Valve A-Wave Peak Velocity: 0.54 m/s Mitral Valve E-Wave Peak Velocity: 0.57 m/s Right Ventricle Aorta AO Root Diam: 3.55 cm Aortic Valve AoV Area (Peak Dago): 2.63 cm2, 2.63 cm2 Peak Velocity(Antegrade Flow): 0.95 m/s Peak Gradient(Antegrade Flow): 3.61 mm[Hg] Tricuspid Valve Pulmonic Valve Peak Velocity: 0.76 m/s, 0.99 m/s Peak Gradient: 2.30 mm[Hg], 3.89 mm[Hg] Right Atrium Right Atrium Systolic Pressure: 88.85 ml, 88.85 ml Dictated by: Jin Capellan M.D. on 08/12/2022 at 16:30 Approved by: Jin Capellan M.D. on 08/12/2022 at 16:34 Normal [facility] INSULINon 12-10-2021 Insulin 14.3 uIU/mL Normal 2.6-24.9 [facility] Comment on above: Performed By: #### I NSULIN #### [facility] [address] [place] [address] Dr. Neo Mccall TESTOSTERONE, TOTALon 2021 Testosterone [Mass/Vol] 269 ng/dL Normal 264-916 [facility] Comment on above: Result Comment: Adul t male reference interval is based on a population of healthy nonobese males (BMI <30) between 19 and 39 years old. Raya et.al. JCEM 2017,102;9210-7305. PMID: [id number]. Performed By: #### T ESTTOT #### [facility] [address] [place] [address] Dr. Neo Mccall OCC BLD IMMUNO SCREENon OCCULT BLOOD Negative Normal NEGATIVE [facility] Comment on above: Performed By: #### O BSCRN ####[facility] [id number] [place] [address]Dr. Neo Mccall CBC AUTO DIFFon 12-07-2021 BASO # 0.1 103/ul Normal 0.0-0.1 [facility] Comment on above: Performed By: #### C BC #### [facility] [address] [place] [address] Dr. Neo Mccall Basophils/100 WBC (Bld) 0.9 % Normal 0.2-2.0 [facility] Comment on above: Performed By: #### C BC #### [facility] [address] [address] [address] Neo Mccall EO # 0.4 103/ul Normal 0.0-0.7 [facility] Comment on above: Performed By: #### C BC #### [facility] [address] [place] [address] Dr. Neo Mccall Eosinophils/100 WBC (Bld) 4.7 % Normal 0.9-7.0 [facility] Comment on above: Performed By: #### C BC #### [facility] [address] [place] [address] Dr. Neo Mccall Erythrocyte distribution width (RBC) [Ratio] 12.8 % Normal 11.0-15.0 [facility] Comment on above: Performed By: #### C BC #### [facility] [address] [place] [address] Dr. Neo Mccall Hematocrit (Bld) [Volume fraction] 42.7 % Normal 42.0-54.0 [facility] Comment on above: Performed By: #### C BC #### [facility] [address] [place] [address] Dr. Neo Mccall Hemoglobin (Bld) [Mass/Vol] 14.6 g/dL Normal 14.0-18.0 [facility] Comment on above: Performed By: #### C BC #### [facility] [address] [place] [address] Dr. Neo Mccall IG # 0.02 10e3/ul Normal 0.00-0.03 [facility] Comment on above: Performed By: #### C BC #### [facility] [address] [place] [address] Dr. Noe Mccall IG % 0.2 % Normal 0.0-0.5 [facility] Comment on above: Performed By: #### C BC #### [facility] [address] [place] [address] Dr. Neo Mccall LYMPH # 2.0 103/ul Normal 1.2-3.8 [facility] Comment on above: Performed By: #### C BC #### [facility] [address] [place] [address] Dr. Neo Mccall Lymphocytes/100 WBC (Bld) 22.9 % Normal 20.5-60.0 [facility] Comment on above: Performed By: #### C BC #### [facility] [address] [place] [address] Dr. Neo Mccall MANUAL DIFF REQ NO Normal [facility] Comment on above: Performed By: #### C BC #### [facility] [address] [place] [address] Dr. Neo Mccall MCH (RBC) [Entitic mass] 32.1 pg Normal 25.9-34.0 [facility] Comment on above: Performed By: #### C BC #### [facility] [address] [place] [address] Dr. Neo Mccall MCHC (RBC) [Mass/Vol] 34.2 g/dL Normal 29.9-35.2 [facility] Comment on above: Performed By: #### C BC #### [facility] [address] [place] [address] Dr. Neo Mccall MCV (RBC) [Entitic vol] 93.8 fL Normal 80.0-94.0 [facility] Comment on above: Performed By: #### C BC #### [facility] [address] [place] [address] Dr. Neo Mccall MONO # 0.8 103/ul Normal 0.3-0.8 [facility] Comment on above: Performed By: #### C BC #### [facility] [address] [place] [address] Dr. Neo Mccall Monocytes/100 WBC (Bld) 8.9 % Normal 1.7-12.0 [facility] Comment on above: Performed By: #### C BC #### [facility] [address] [place] [address] Dr. Neo Mccall NEUT # 5.4 103/ul Normal 1.4-6.5 [facility] Comment on above: Performed By: #### C BC #### [facility] [address] [place] [address] Dr. Neo Mccall Neutrophils/100 WBC (Bld) 62.4 % Normal 43.0-75.0 [facility] Comment on above: Performed By: #### C BC #### [facility] [address] [place] [address] Dr. Neo Mccall Platelet mean volume (Bld) [Entitic vol] 9.4 fL Critically low 9.5-13.5 [facility] Comment on above: Performed By: #### C BC #### [facility] [address] [address] [address] Neo Mccall PLT 321 103/ul Normal 150-450 [facility] Comment on above: Performed By: #### C BC #### [facility] [address] [address] [address] Neo Mccall RBC 4.55 106/ul Critically low 4.70-6.10 [facility] Comment on above: Performed By: #### C BC #### [facility] [address] [address] [address] Neo Mccall WBC 8.7 103/ul Normal 4.0-11.0 [facility] Comment on above: Performed By: #### C BC #### [facility] [address] [address] [address] Neo Mccall FREE THYROXINE INDEX T7on FTI 2.74 Normal 1.30-4.50 [facility] Comment on above: Performed By: #### T 7, TSH, CMP, LIPID #### [facility] [address] [address] [address] Neo Mccall T3U 33.0 % Normal 33.0-40.0 [facility] Comment on above: Performed By: #### T 7, TSH, CMP, LIPID #### [facility] [address] [address] [address] Neo Mccall T4 [Mass/Vol] 8.30 ug/dL Normal 4.50-12.10 [facility] Comment on above: Performed By: #### T 7, TSH, CMP, LIPID #### [facility] [address] [address] [address] Neo Mccall GLYCOHEMOGLOBIN A1Con 2021 ADA RECOMMENDATION SEE BELOW Normal [facility] Comment on above: Result Comment: ADA RECOMMENDED LIMIT 4.0 - 6.0 ADA THERAPEUTIC TARGET < 7.0 ACTION SUGGESTED > 7.0 Performed By: #### A 1C ####[facility] [id number] [address]Dr. Neo Mccall Glucose [Mass/Vol] 123 mg/dL Normal [facility] Comment on above: Performed By: #### A 1C ####[facility] [id number] [place], [place] [address]Dr. Neo Mccall HbA1c (Bld) [Mass fraction] 5.9 % Normal 4.5-6.2 [facility] Comment on above: Performed By: #### A 1C ####[facility] [id number] [place] [id number]. Neo Mccall IRONon 12-07-2021 Iron [Mass/Vol] 127.0 ug/dL Normal 65.0-175.0 [facility] Comment on above: Performed By: #### P SASC, IRON #### [facility] [address] [address] [address] Neo Mccall LIPID PROFILEon 12-07-2021 CHOL-HDL RATIO NORM SEE BELOW Normal [facility] Comment on above: Result Comment: 3.3 - 4.4 LOW RISK 4.4 - 7.1 AVERAGE RISK 7.1 - 11.0 MODERATE RISK >11.0 HIGH RISK Performed By: #### T 7, TSH, CMP, LIPID #### [facility] [address] [address] [address] Neo Mccall Cholesterol [Mass/Vol] 192 mg/dL Normal <=200 [facility] Comment on above: Performed By: #### T 7, TSH, CMP, LIPID #### [facility] [address] [address] [address] Neo Mccall Cholesterol in HDL [Mass/Vol] 48 mg/dL Normal 40-60 [facility] Comment on above: Performed By: #### T 7, TSH, CMP, LIPID #### [facility] [address] [address] [address] Neo Mccall Cholesterol in LDL [Mass/Vol] 102.2 mg/dL Normal [facility] Comment on above: Performed By: #### T 7, TSH, CMP, LIPID #### [facility] [address] [address] [address] Neo Mccall Cholesterol.total/Ch olesterol in HDL [Mass ratio] 4.0 {ratio} Normal [facility] Comment on above: Performed By: #### T 7, TSH, CMP, LIPID #### [facility] [address] [address] [address] Neo Mccall HDL NORMAL > or = 60 mg/dl - LOW CARDIOVASCULAR RISK <40 mg/dl - HIGH CARDIOVASCULAR RISK Normal [facility] Comment on above: Performed By: #### T 7, TSH, CMP, LIPID #### [facility] [address] [address] [address] Neo Mccall LDL CALC NORMAL SEE BELOW Normal [facility] Comment on above: Result Comment: <100 mg/dl OPTIMAL 100 - 129 mg/dl NEAR OR ABOVE OPTIMAL 130 - 159 mg/dl BORDERLINE HIGH 160 - 189 mg/dl HIGH >190 mg/dl VERY HIGH Performed By: #### T 7, TSH, CMP, LIPID #### [facility] [address] [address] [address] Neo Mccall Triglyceride [Mass/Vol] 209 mg/dL Critically high <=150 [facility] Comment on above: Performed By: #### T 7, TSH, CMP, LIPID #### [facility] [address] [address] [address] Neo Mccall VLDL CALC 41.8 mg/dL Normal [facility] Comment on above: Performed By: #### T 7, TSH, CMP, LIPID #### [facility] [address] [address] [address] Neo Mccall PROF 14(COMP METB)on 022 Albumin [Mass/Vol] 4.2 g/dL Normal 3.4-5.0 [facility] Comment on above: Performed By: #### T 7, TSH, CMP, LIPID #### [facility] [address] [place] [address] Dr. Neo Mccall Albumin/Globulin [Mass ratio] 1.3 {ratio} Normal [facility] Comment on above: Performed By: #### T 7, TSH, CMP, LIPID #### [facility] [address] [address] [address] Neo Mccall ALP [Catalytic activity/Vol] 96 U/L Normal 46-116 [facility] Comment on above: Performed By: #### T 7, TSH, CMP, LIPID #### [facility] [address] [place] [address] Dr. Neo Mccall ALT [Catalytic activity/Vol] 34 U/L Normal 16-63 [facility] Comment on above: Performed By: #### T 7, TSH, CMP, LIPID #### [facility] [address] [place] [address] Dr. Neo Mccall Anion gap [Moles/Vol] 11.6 mmol/L Normal [facility] Comment on above: Performed By: #### T 7, TSH, CMP, LIPID #### [facility] [address] [place] [address] Dr. Neo Mccall AST [Catalytic activity/Vol] 18 U/L Normal 15-37 [facility] Comment on above: Performed By: #### T 7, TSH, CMP, LIPID #### [facility] [address] [place] [address] Dr. Neo Mccall Bilirubin [Mass/Vol] 0.6 mg/dL Normal 0.2-1.0 [facility] Comment on above: Performed By: #### T 7, TSH, CMP, LIPID #### [facility] [address] [place] [address] Dr. Neo Mccall Calcium [Mass/Vol] 9.3 mg/dL Normal 8.5-10.1 [facility] Comment on above: Performed By: #### T 7, TSH, CMP, LIPID #### [facility] [address] [place] [address] Dr. Neo Mccall Chloride [Moles/Vol] 107 mmol/L Normal 98-107 [facility] Comment on above: Performed By: #### T 7, TSH, CMP, LIPID #### [facility] [address] [place] [address] Dr. Neo Mccall CO2 [Moles/Vol] 30.8 mmol/L Normal 21.0-32.0 [facility] Comment on above: Performed By: #### T 7, TSH, CMP, LIPID #### [facility] [address] [address] [address] Neo Mccall Creatinine [Mass/Vol] 1.14 mg/dL Normal 0.70-1.30 [facility] Comment on above: Performed By: #### T 7, TSH, CMP, LIPID #### [facility] [address] [address] [address] Neo Mccall EGFR-AF TANZANIAN >60 Normal >=60 [facility] Comment on above: Performed By: #### T 7, TSH, CMP, LIPID #### [facility] [address] [address] [address] Neo Mccall EGFR-NON AF TANZANIAN >60 Normal >=60 [facility] Comment on above: Performed By: #### T 7, TSH, CMP, LIPID #### [facility] [address] [address] [address] Neo Mccall Globulin (S) [Mass/Vol] 3.2 g/dL Normal [facility] Comment on above: Performed By: #### T 7, TSH, CMP, LIPID #### [facility] [address] [address] [address] Neo Mccall Glucose [Mass/Vol] 99 mg/dL Normal 74-106 [facility] Comment on above: Performed By: #### T 7, TSH, CMP, LIPID #### [facility] [address] [address] [address] Neo Mccall Potassium [Moles/Vol] 3.4 mmol/L Critically low 3.5-5.1 [facility] Comment on above: Performed By: #### T 7, TSH, CMP, LIPID #### [facility] [address] [address] [address] Neo Mccall Protein [Mass/Vol] 7.4 g/dL Normal 6.4-8.2 [facility] [place] [facility] Comment on above: Performed By: #### T 7, TSH, CMP, LIPID #### [facility] [address] [address] [address] Neo Mccall Sodium [Moles/Vol] 146 mmol/L Critically high 136-145 T [facility] Comment on above: Performed By: #### T 7, TSH, CMP, LIPID #### [facility] [address] [address] [address] Neo Mccall Urea nitrogen [Mass/Vol] 17.0 mg/dL Normal 7.0-18.0 [facility] Comment on above: Performed By: #### T 7, TSH, CMP, LIPID #### [facility] [address] [address] [address] Neo Mccall Urea nitrogen/Creatinine [Mass ratio] 14.9 mg/mg Normal [facility] Comment on above: Performed By: #### T 7, TSH, CMP, LIPID #### [facility] [address] [place] [address] Dr. Neo Mccall TSHon 12-07-2021 TSH 1.906 uIU/mL Normal 0.358-3.740 [facility] Comment on above: Performed By: #### T 7, TSH, CMP, LIPID #### [facility] [address] [place] [address] Dr. Neo Mccall SARS-CoV-2 (COVID-19) RNA NA A+probe Ql (Resp)on 11-19-2021 SARS-CoV-2 (COVID-19) RNA TEGAN+probe Ql (Unsp spec) Positive [employer] [facility] [employer] Other Vital Signs Date Time Vital Sign Value Performing Clinician Faci lity 04-25-2023 14:15-0500 Body height 177.8 cm Yue Tenorio Other [facility] Other 04-25-2023 14:15-0500 Body mass index (BMI) [Ratio] 41.89 kg/m2 Yue Tenorio Other [facility] Other 04-25-2023 14:15-0500 Body temperature 97.7 [degF] Yue Tenorio Other [facility] Other 04-25-2023 14:15-0500 Body weight 132.45 kg Yue Tenorio Other [facility] Other 04-25-2023 14:15-0500 Diastolic blood pressure 84 mm[Hg] Yue Tenorio Other [facility] Other 04-25-2023 14:15-0500 Respiratory rate 18 /min Yue Tenorio Other [facility] Other 04-25-2023 14:15-0500 SaO2% (BldA) [Mass fraction] 96 % Yue Tenorio Other [facility] Other 04-25-2023 14:15-0500 Systolic blood pressure 150 mm[Hg] Yue Tenorio Other [facility] Other 04-04-2023 15:17-0500 Blood Pressure Location Haris NILL [facility] [place] 04-04-2023 15:17-0500 Diastolic blood pressure 84 mm[Hg] Haris NILL [facility] [place] 04-04-2023 15:17-0500 Heart rate 70 /min Haris NILL [facility] [place] 04-04-2023 15:17-0500 Respiratory rate 16 /min Haris NILL [facility] [place] 04-04-2023 15:17-0500 Systolic blood pressure 120 mm[Hg] Haris NILL [facility] [place] 03-04-2023 09:30-0400 Body height 177.8 cm John Islas Other [facility] Other 03-04-2023 09:30-0400 Body mass index (BMI) [Ratio] 44.19 kg/m2 Juanfrantz Giraldodano Other [facility] Other 03-04-2023 09:30-0400 Body temperature 97 [degF] John Giraldodano Other [facility] Other 03-04-2023 09:30-0400 Body weight 139.71 kg Juanfrantz Giraldodano Other [facility] Other 03-04-2023 09:30-0400 Diastolic blood pressure 94 mm[Hg] Eliazarer Roshan Other [facility] Other 03-04-2023 09:30-0400 Respiratory rate 20 /min Juanfrantz Giraldodano Other [facility] Other 03-04-2023 09:30-0400 SaO2% (BldA) [Mass fraction] 98 % John Paganno Other [facility] Other 03-04-2023 09:30-0400 Systolic blood pressure 158 mm[Hg] John Giraldodano Other [facility] Other 11-19-2021 11:10-0400 Body height 177.8 cm Yue Coby Other [facility] Other 11-19-2021 11:10-0400 Body mass index (BMI) [Ratio] 37.3 kg/m2 Yue Tenorio Other [facility] Other 11-19-2021 11:10-0400 Body temperature 100 [degF] Yue Tenorio Other [facility] Other 11-19-2021 11:10-0400 Body weight 117.94 kg Yue Tenorio Other [facility] Other 11-19-2021 11:10-0400 Respiratory rate 18 /min Yue Tenorio Other [facility] Other 11-19-2021 11:10-0400 SaO2% (BldA) [Mass fraction] 97 % Yue Tenorio Other [facility] Other 04-10-2021 15:15-0500 Body height 168.91 cm Sree Olexa Other [facility] Other 04-10-2021 15:15-0500 Body mass index (BMI) [Ratio] 41.33 kg/m2 Sree Olexa Other [facility] Other 04-10-2021 15:15-0500 Body weight 117.94 kg Sree Olexa Other [facility] Other Encounters Encounter Date Encounter Type Care Provider Facility Start: 01-16-2024 End: 01-16-2024 ambulatory CATA BARAJAS [facility] Start: 10-24-2023 End: 10-24-2023 ambulatory [facility]: 10-07-[facility] Start: 10-06-2023 End: 10-06-2023 ambulatory [facility] Start: 10-06-2023 End: 10-06-2023 ambulatory [facility] Start: 10-03-2023 End: 10-03-2023 ambulatory [facility] Start: 05-30-2023 End: 05-30-2023 ambulatory CATA BARAJAS [facility] Start: 04-25-2023 End: 04-25-2023 ambulatory Yue Coby Other [facility] Other Start: 04-25-2023 Office outpatient visit 15 minutes Yue Coby [facility] Start: 04-18-2023 End: 04-18-2023 ambulatory YARELY MATTHEWS Not Available Start: 04-04-2023 End: 04-05-2023 ambulatory Haris LAWSON Facility:[facility] Start: 04-04-2023 End: 04-04-2023 Patient encounter procedure Haris R BRONWYNL [facility] [place] Start: 03-18-2023 End: 03-18-2023 ambulatory John Islas Facility:[facility] Start: 03-18-2023 End: 03-18-2023 ambulatory MD Michael Latham Work Phone: [facility] Work Phone: Start: 03-18-2023 End: 03-18-2023 Patient encounter procedure MD Michael Latham Work Phone: [facility] Work Phone: Start: 03-11-2023 ambulatory Haris LAWSON Facility: [facility] Start: 03-04-2023 End: 03-04-2023 ambulatory John Islas Other [facility] Other Start: 03-04-2023 Office outpatient visit 25 minutes John Islas [facility] Start: 01-17-2023 End: 01-17-2023 ambulatory John Islas Other [facility]. [place] Other Start: 01-17-2023 Telephone encounter John ward [facility] Start: 01-01-2023 End: 01-01-2023 ambulatory John Paganno Other [facility]. [place] Other Start: 01-01-2023 Telephone encounter John mckeono [facility] Start: 08-12-2022 End: 08-13-2022 ambulatory RODOLFO BOWSER Facility:[facility] Start: 05-08-2022 End: 08-08-[address] DOCTOR SALMON Facility:[facility] Start: 12-11-2021 Encounter for genera l adult medical examination without abnormal findings DR MICHAEL LATHAM . [facility] Start: 12-08-2021 End: 12-08-[address] MICHAEL LATHAM . Facility:[facility] Start: 12-07-2021 End: 12-08-2021 ambulatory CATADEBBIE BARAJAS Facility:[facility] Start: 12-07-2021 End: 12-08-2021 Encounter for general adult medical examination without abnormal findings DR MICHAEL LATHAM . Facility:[facility] Start: 11-19-2021 End: 11-19-2021 ambulatory Yue Tenorio Other [facility] [place] Other Start: 11-19-2021 Office outpatient visit 15 minutes Yue Tenorio [facility] Start: 11-14-[address] MICHAEL LATHAM . Facili ty:[facility] Start: 04-10-2021 End: 04-10-2021 ambulatory Sree Childs Other [facility] [place] Other Start: 04-10-2021 Office outpatient visit 15 minutes Sree Childs [facility] [place] Start: 09-29-2020 End: 09-29-2020 ambulatory UNKNOWN PROVIDER Facility:[facility] Start: 07-06-2018 End: 07-07-2018 Patient encounter procedure DEFAULT PHYSICIAN Facility:[facility] Procedures Date Procedure Procedure Detail Performing Clinician Start: 12-07-2021 PSA screening CATA Lilliam OES Comment on above: Performed By: #### P SASC, IRON #### [facility] [address] [place] [address] Dr. Neo Mccall Start: 07-17-2020 Cystoscopy Haris NI LL Start: 09-30-2018 exicison skin lesions 1 Haris BARNHARTL Comment on above: neck, left flank and left inner thigh Arthrodesis of ankle Haris BARNHARTL Arthroscopy of shoulder Nehemias dennison NILL History of surgical procedure on cervical spine Haris NILL Repair of umbilical hernia M zev BARNHARTL Immunizations Immunization Date Immunization Notes Care Provider Fa cili 04-12-2021 SARS-CoV-2 (COVID-19 ) mRNA BNT-162b2 vax Haris BARNHARTL [facility] [place] 08-30-2020 SARS-CoV-2 (COVID-19 ) mRNA BNT-162b2 vax Haris BARNHARTL [facility] [place] 08-09-2020 SARS-CoV-2 (COVID-19 ) mRNA BNT-162b2 vax Haris BARNHARTL [facility] [place] 05-05-2020 SARS-CoV-2 (COVID-19 ) mRNA BNT-162b2 vax Haris BARNHARTL [facility] Comment on above: Result Comment: Pt d oes not know the dates NEGATED: Highlighted row has not occurred!04-04-2023 influenza virus vaccine, unspecified formulation Haris LAWSON [facility] [place] Payers Date Payer Category Payer Self-pay [id number] 1957 [facility] [id number] 1959 Unknown [id number] 1955 Unknown [id number] 47 1957 Unknown [id number] 32 1957 Unknown [id number] 93 1957 Unknown [id number] 93 1957 Unknown [id number] 93 1957 Unknown [id number] 93 1957 Unknown [id number] 93 1957 Unknown [id number] 93 1957 Unknown [id number] 27 1957 Unknown [id number] 259 Medicare Medicare-OP No Part B [id number] Private Health Insurance [employer] [id number] Unknown Unknown [id number] 31 Social History Date Type Detail Facility Unknown if ever smoked [facility]. [place] Other Sex Assigned At [facility] Start: 03-23-2021 End: 04-04-2023 Tobacco smoking status NHIS Never smoked tobacco (finding) [facility] Start: 1955 Sex Assigned At Male F [facility] Tobacco smoking status Never [facility] [place] Functional Status Date Assessment Result Facility 04-04-2023 Functional Status N/A [facility] [place] Clinical Notes 04-10-2021 to 01-16-2024 Note Date & Type Note Facility 01-16-2024 Note Lipid abnormalities are stable Continue atorvastatin 40 mg a day Monitor lipids and liver function annually-no concerns currently [facility] 01-16-2024 Note Hypertension remains elevated and uncontrolled therefore will increase carvedilol to 25 mg twice daily and continue clonidine 0.3 mg twice daily. He states lightheaded and dizziness and low blood pressure has greatly improved since stopping the irbesartan/hydrochlorothiazide. He does note occasional swelling of feet that typically resolves with elevation-discussed with patient if swelling worsens or becomes short of breath or orthopneic he is to call office [facility] 01-16-2024 Note Follow-up with CT heath dylan as scheduled Reviewed CT chest abdomen and pelvis with patient and no significant aortic aneurysm noted, thoracic aorta at upper level of normal at 3.9 cm Blood pressure still elevated and uncontrolled will increase carvedilol to 25 mg twice daily Patient to continue monitoring blood pressure at home with goal 130/80 or less majority of the time he voiced understanding [facility] 01-16-2024 Note [facility] CARDIOLOGY PROGR ESS NOTE HPI: Yi Driver is a 68 y.o. male here for 3 month F/U HPI 68 yo male presents to clinic for routine F/U for HTN management, near syncope r/t orthostasis, Thoracic aneurysm, Recent echocardiogram showed aortic aneurysm measuring 3.5 cm. He then underwent repeat echocardiogram in 12/2023 and showed aortic root dilatation of 4.0 cm and aortic aneurysm measuring 3.7 cm. Currently patient states he is feeling well denies any chest pain, shortness of breath, syncope or lightheadedness/dizziness since stopping the irbesartan/hydrochlorothiazide. Overall states he feels fairly well denies any acute concerns Remains active without any concerning limiting symptoms He continues to lose weight purposefully with diet and exercise States blood pressure at home is typically 130s to 140s over 70-80 Review of Systems Constitutional: Weight loss: 37# since November 2022. Cardiovascular: Positive for dyspnea on exertion (improving) and palpitations. Musculoskeletal: Positive for arthritis, back pain and joint pain. All other systems reviewed and are negative. Visit Vitals BP (!) 164/102 (BP Location: Left arm, Patient Position: Sitting) Pulse 74 Ht 1.753 m (5' 9 ) Wt 107 kg (236 lb) SpO2 96% BMI 34.85 kg/m??? Smoking Status Never BSA 2.28 m??? Allergies Allergen Reactions Adhesive Medications: Current Outpatient Medications on File Prior to Visit Medication Sig Dispense Refill aspirin 81 mg chewable tablet Chew 1 tablet in the morning. atorvastatin (Lipitor) 40 mg tablet Take 1 tablet (40 mg) by mouth at bedtime. 90 tablet 3 citalopram (CeleXA) 20 mg tablet Take 20 mg by mouth in the morning. cloNIDine (Catapres) 0.3 mg tablet Take 1 tablet (0.3 mg) by mouth in the morning and at bedtime. 180 tablet 3 levothyroxine (Synthroid, Levoxyl) 75 mcg tablet TAKE 1 TABLET BY MOUTH EVERY DAY IN THE MORNING ON AN EMPTY STOMACH FOR 30 DAYS metoclopramide (Reglan) 10 mg tablet Take 10 mg by mouth three times daily. pantoprazole (ProtoNix) 40 mg EC tablet Take 40 mg by mouth before breakfast. Do not crush, chew, or split. Trelegy Ellipta 100-62.5-25 mcg blister with device INHALE 1 PUFF INTO THE LUNGS ONCE DAILY [DISCONTINUED] carvedilol (Coreg) 12.5 mg tablet Take 1 tablet (12.5 mg) by mouth with breakfast and with evening meal. THIS IS AN INCREASE 180 tablet 3 buPROPion XL (Wellbutrin XL) 150 mg 24 hr tablet Take 150 mg by mouth in the morning. mirtazapine (Remeron) 30 mg tablet Take 30 mg by mouth at bedtime. omeprazole (PriLOSEC) [address] capsule TAKE 1 CAPSULE BY MOUTH EVERY DAY 30 MINUTES BEFORE MORNING MEAL tiZANidine (Zanaflex) 4 mg tablet [DISCONTINUED] carvedilol (Coreg) 6.25 mg tablet Take 1 tablet (6.25 mg) by mouth with breakfast and with evening meal. (Patient not taking: Reported on 01/16/2024) 180 tablet 3 [DISCONTINUED] irbesartan-hydrochlorothiazide (Avalide) 150-12.5 mg tablet Take 1 tablet by mouth in the morning and at bedtime. (Patient not taking: Reported on 10/07/2023) 90 tablet 3 No current facility-administered medications on file prior to visit. Physical Exam: Constitutional: Appearance: Normal appearance. Without apparent distress, obese HENT: Head: Normocephalic and atraumatic. Nose: Nose normal. Mouth/Throat: Mouth: Mucous membranes are moist. Eyes: Extraocular Movements: Extraocular movements intact. Conjunctiva/sclera: Conjunctivae normal. Neck: Vascular: No JVD. Cardiovascular: Rate and Rhythm: Normal rate and regular rhythm. Pulses: Dorsalis pedis pulses are 3 on the right side and 3on the left side. Posterior tibial pulses are 3 on the right side and 3 on the left side. Heart sounds: Normal heart sounds, S1 normal and S2 normal. Pulmonary: Effort: Pulmonary effort is normal. Breath sounds: Normal breath sounds. Abdominal: General: Bowel sounds are normal. Palpations: Abdomen is soft. Musculoskeletal: General: Normal range of motion. Cervical back: Normal range of motion. Right lower leg: No edema. Left lower leg: No edema. Skin: General: Skin is warm and dry. Capillary Refill: Capillary refill takes less than 2 seconds. Neurological: General: No focal deficit present. Mental Status: he is alert and oriented to person, place, and time. Psychiatric: Mood and Affect: Mood normal. Behavior: Behavior normal. Thought Content: Thought content normal. Judgment: Judgment normal. Labs:-Function stable 10/11/2023 CR 1.23 03/10/23 CBC normal BUN 23, CR 1.41- elevated, GFR 50 A1C 6.4 elevated AST 15, ALT 23, ALP 119- stable liver function Pro BNP 35- normal Chol 226, Trig 251, HDL 53 , LDL 123 TSH 5.191- elevated Last lab values have been reviewed CV Testin10/22/23 CT chest/ABD/pelvis- reviewed CT scan with pt 09/12/23 TTE 08/12/[address] chest 12/2022 No acute abnormality 12/11/22 PFT Assessment/Plan: Aneurysm of ascending aorta without rupture Follow-up wi (more content not included)... [facility] 01-16-2024 Note Pt here for a three month follow up. Pt has HTN, and HLD. Pt denies chest pain, sob, dizziness. Review of Systems Constitutional: Weight loss: 37# since November 2022. Cardiovascular: Positive for dyspnea on exertion (improving) and palpitations. Musculoskeletal: Positive for arthritis, back pain and joint pain. All other systems reviewed and are negative. [facility] 10-24-2023 Note Patient was seen for new patient evaluation with Dr. Petey Goins on 10/06 for ascending aneurysm. We ordered the CTA Chest which was completed on 10/21/23. Call to pt regarding results. Aneurysm measuring 3.9cm on CTA. No Aortic valve insufficiency on echo. Will plan to repeat CTA in 6 months. Still awaiting genetic testing to rule out connective tissue disorder. Will await those results. [facility] 10-10-2023 Note [facility] CARDIOLOGY PROGR ESS NOTE HPI: Yi Driver is a 67 y.o. male here for routine f/U Patient here for follow up regarding hypertension. He recently saw vascular surgery and they have recommended better blood pressure control given aortic aneurysm. He is down another 30+ lbs since his last visit in May 2023. Says his BP has been averaging around 150's systolic. He has stopped taking losartan-hydrochlorothiazide due to dizziness. Since he's lost weight his BP is lower. Patient states that when he was on all of his blood pressure medications, he had an episode of near syncope when going from sitting to standing quickly. No additional episodes. Review of Systems 10 point ROS is performed and is negative unless otherwise specified in HPI Visit Vitals BP 138/88 (BP Location: Left arm, Patient Position: Sitting) Pulse 88 Ht 1.753 m (5' 9 ) Wt 121 kg (267 lb) SpO2 96% BMI 39.43 kg/m??? Smoking Status Never BSA 2.43 m??? Allergies Allergen Reactions Adhesive Medications: Current Outpatient Medications on File Prior to Visit Medication Sig Dispense Refill aspirin 81 mg chewable tablet Chew 1 tablet in the morning. atorvastatin (Lipitor) 40 mg tablet Take 1 tablet (40 mg) by mouth at bedtime. 90 tablet 3 buPROPion XL (Wellbutrin XL) 150 mg 24 hr tablet Take 150 mg by mouth in the morning. cloNIDine (Catapres) 0.3 mg tablet Take 1 tablet (0.3 mg) by mouth in the morning and at bedtime. 180 tablet 3 irbesartan-hydrochlorothiazide (Avalide) 150-12.5 mg tablet Take 1 tablet by mouth in the morning and at bedtime. 90 tablet 3 mirtazapine (Remeron) 30 mg tablet Take 30 mg by mouth at bedtime. pantoprazole (ProtoNix) 40 mg EC tablet Take 40 mg by mouth before breakfast. Do not crush, chew, or split. tiZANidine (Zanaflex) 4 mg tablet Amadeo Orantesta 100-62.5-25 mcg blister with device INHALE 1 PUFF INTO THE LUNGS ONCE DAILY levothyroxine (Synthroid, Levoxyl) 75 mcg tablet TAKE 1 TABLET BY MOUTH EVERY DAY IN THE MORNING ON AN EMPTY STOMACH FOR 30 DAYS omeprazole (PriLOSEC) [address] capsule TAKE 1 CAPSULE BY MOUTH EVERY DAY 30 MINUTES BEFORE MORNING MEAL [DISCONTINUED] amLODIPine (Norvasc) 10 mg tablet Take 1 tablet (10 mg) by mouth in the morning. (Patient not taking: Reported on 05/30/2023) 90 tablet 3 [DISCONTINUED] carvedilol (Coreg) 25 mg tablet Take 1 tablet (25 mg) by mouth with breakfast and with evening meal. (Patient not taking: Reported on 05/30/2023) 180 tablet 3 No current facility-administered medications on file prior to visit. Physical Exam: Constitutional: Appearance: Normal appearance. Without apparent distress HENT: Head: Normocephalic and atraumatic. Nose: Nose normal. Mouth/Throat: Mouth: Mucous membranes are moist. Eyes: Extraocular Movements: Extraocular movements intact. Conjunctiva/sclera: Conjunctivae normal. Neck: Vascular: No JVD. Cardiovascular: Rate and Rhythm: Normal rate and regular rhythm. Pulses: Dorsalis pedis pulses are 3 on the right side and 3on the left side. Posterior tibial pulses are 3 on the right side and 3 on the left side. Heart sounds: Normal heart sounds, S1 normal and S2 normal. Pulmonary: Effort: Pulmonary effort is normal. Breath sounds: Normal breath sounds. Abdominal: General: Bowel sounds are normal. Palpations: Abdomen is soft. Musculoskeletal: General: Normal range of motion. Cervical back: Normal range of motion. Right lower leg: No edema. Left lower leg: No edema. Skin: General: Skin is warm and dry. Capillary Refill: Capillary refill takes less than 2 seconds. Neurological: General: No focal deficit present. Mental Status: he is alert and oriented to person, place, and time. Psychiatric: Mood and Affect: Mood normal. Behavior: Behavior normal. Thought Content: Thought content normal. Judgment: Judgment normal. Labs: 03/10/23 CBC normal BUN 23, CR 1.41- elevated, GFR 50 A1C 6.4 elevated AST 15, ALT 23, ALP 119- stable liver function Pro BNP 35- normal Chol 226, Trig 251, HDL 53 , LDL 123 TSH 5.191- elevated Last lab values have been reviewed CV Testin08/12/[address] chest 12/2022 No acute abnormality 12/11/22 PFT No echocardiogram results found for the past 12 months Assessment/Plan: Right bundle branch block stable Mixed hyperlipidemia Continue lipitor 40 mg daily Hypertensive disorder Hypertension remains suboptimally controlled CT surgery is recommended Bp <120 systolic. Will start coreg 6.25 mg BID and recommend that patient monitor daily Bp at home. He will contract cardiology if Bp remains elevated. Aneurysm of ascending aorta without rupture F/U with CT Surgery -Optimize medical management -Aggressive risk factor modification -Plan of care discussed with patient. All questions were answered. Patient voices understanding and is agreeable with current plan. -Patient was educated on red flag symptoms. Strict return precau (more content not included)... [facility] 10-07-2023 Note Cardiothoracic Surge ry Reason For Visit Chief Complaint Patient presents with New Patient Ascending aortic aneurysm, Ref by Cata Barajas Referring Provider: Cata Barajas Np Cardiology History Of Present Illness Yi Driver is a 68 y.o. male with PMH of HTN, HLD, Hypothyroidism who follows with cardiology for his blood pressure control and known aortic aneurysm. His aneurysm was initially found in 08/2022 when he was referred to cardiology for resistant HTN. At that time he underwent echocardiogram that showed aortic aneurysm measuring 3.5 cm. He then underwent repeat echocardiogram in 12/2023 and showed aortic root dilatation of 4.0 cm and aortic aneurysm measuring 3.7 cm. Of note no valvular abnormality was seen on either echocardiogram. He was referred to CT Surgery for surgical evaluation and recommendations. Patient states that he has recently underwent 60 lb weight loss. He has family history of CAD. No known history of connective tissues disorders or aneurysms. Denies smoking and drinks occasionally. Denies chest pain, palpitations, SOB, back pain, numbness and tingling of bilateral upper and lower extremities. Past Medical History He has a past medical history of Aneurysm (CMS/HCC), Aneurysm of ascending aorta without rupture (CMS/HCC) (07/25/2022), Hyperlipidemia, and Hypertension. Surgical History He has a past surgical history that includes Foot surgery; Kidney stone surgery; Knee arthroscopy w/ debridement; Neck surgery; and Shoulder surgery. Family History Family History Problem Relation Name Age of Onset Coronary artery disease Sister Coronary artery disease Maternal Grandfather Social History He reports that he has never smoked. He has never used smokeless tobacco. He reports current alcohol use. He reports current drug use. Drug: Marijuana. Allergies Adhesive Medications Current Outpatient Medications Medication Sig Dispense Refill aspirin 81 mg chewable tablet Chew 1 tablet in the morning. atorvastatin (Lipitor) 40 mg tablet Take 1 tablet (40 mg) by mouth at bedtime. 90 tablet 3 buPROPion XL (Wellbutrin XL) 150 mg 24 hr tablet Take 150 mg by mouth in the morning. cloNIDine (Catapres) 0.3 mg tablet Take 1 tablet (0.3 mg) by mouth in the morning and at bedtime. 180 tablet 3 irbesartan-hydrochlorothiazide (Avalide) 150-12.5 mg tablet Take 1 tablet by mouth in the morning and at bedtime. 90 tablet 3 levothyroxine (Synthroid, Levoxyl) 75 mcg tablet TAKE 1 TABLET BY MOUTH EVERY DAY IN THE MORNING ON AN EMPTY STOMACH FOR 30 DAYS mirtazapine (Remeron) 30 mg tablet Take 30 mg by mouth at bedtime. omeprazole (PriLOSEC) [address] capsule TAKE 1 CAPSULE BY MOUTH EVERY DAY 30 MINUTES BEFORE MORNING MEAL pantoprazole (ProtoNix) 40 mg EC tablet Take 40 mg by mouth before breakfast. Do not crush, chew, or split. tiZANidine (Zanaflex) 4 mg tablet Gelaciolegy Ellipta 100-62.5-25 mcg blister with device INHALE 1 PUFF INTO THE LUNGS ONCE DAILY No current facility-administered medications for this visit. Review of Systems Review of Systems: All 14 Systems Reviewed and Negative unless otherwise indicated in the above HPI. Last Recorded Vitals There were no vitals taken for this visit. Physical Exam Physical Exam Vitals reviewed. Constitutional: General: He is not in acute distress. Appearance: Normal appearance. He is not ill-appearing. HENT: Head: Normocephalic and atraumatic. Mouth/Throat: Mouth: Mucous membranes are moist. Pharynx: Oropharynx is clear. Eyes: Pupils: Pupils are equal, round, and reactive to light. Cardiovascular: Rate and Rhythm: Normal rate and regular rhythm. Pulses: Normal pulses. Heart sounds: Normal heart sounds. No murmur heard. Pulmonary: Effort: Pulmonary effort is normal. No respiratory distress. Breath sounds: Normal breath sounds. Abdominal: General: Abdomen is flat. Bowel sounds are normal. There is no distension. Palpations: Abdomen is soft. Musculoskeletal: General: Normal range of motion. Cervical back: Normal range of motion. Right lower leg: No edema. Left lower leg: No edema. Skin: General: Skin is warm and dry. Capillary Refill: Capillary refill takes less than 2 seconds. Neurological: General: No focal deficit present. Mental Status: He is alert and oriented to person, place, and time. Mental status is at baseline. Psychiatric: Mood and Affect: Mood normal. Behavior: Behavior normal. Thought Content: Thought content normal. Judgment: Judgment normal. Relevant Results: Echocardiograms reviewed from [facility] 2022 and 2023.- reviewed. CT of the chest 2022- reviewed. Assessment/Plan Aortic Dilatation Aortic Aneurysm without Rupture HTN HLD Hypothyroidism GERD Plan: -Patient seen and evaluated by Cardiothoracic Team. Dr. Goins personally examined the patient and reviewed Echocardiogram, CTA of the Chest, and Other Diagnostic Testing. Findings di (more content not included)... [facility] 05-30-2023 Note F/U with CT surgery in August as scheduled [facility] 05-30-2023 Note Hypertension is stab le 138/88 Continue clonidine, irbesartan-hydrochlorothiazide [facility] 05-30-2023 Note [facility] 05-30-2023 Note Patient here for 6 m o follow up hypertension and aneurysm of ascending aorta. He is no longer taking amlodipine, hydralazine, or carvedilol. He has lost almost 40# since last apt in November 2022. Cough has subsided after seeing pulmonology and ENT. Dr. Latham gave him pantoprazole and he states this has helped his cough significantly. Still denies chest pain and palpitations. SANTORO is much better s/p weight loss. Feels great! Review of Systems Constitutional: Positive for weight loss (37# since November 2022). Cardiovascular: Positive for dyspnea on exertion (improving). Respiratory: Positive for cough. Musculoskeletal: Positive for arthritis, back pain and joint pain. All other systems reviewed and are negative. [facility] 05-30-2023 Note [facility] CARDIOLOGY PROGR ESS NOTE HPI: Yi Driver is a 67 y.o. male here for routine f/U Patient here for 6 mo follow up hypertension and aneurysm of ascending aorta. He is no longer taking amlodipine, hydralazine, or carvedilol. He has lost almost 40# since last apt in November 2022. Cough has subsided after seeing pulmonology and ENT. Dr. Latham gave him pantoprazole and he states this has helped his cough significantly. Still denies chest pain and palpitations. SANTORO is much better s/p weight loss. Feels great! Review of Systems Constitutional: Positive for weight loss (37# since November 2022). Cardiovascular: Positive for dyspnea on exertion (improving). Respiratory: Positive for cough. Musculoskeletal: Positive for arthritis, back pain and joint pain. All other systems reviewed and are negative. Visit Vitals BP 138/88 (BP Location: Left arm, Patient Position: Sitting) Pulse 88 Ht 1.753 m (5' 9 ) Wt 121 kg (267 lb) SpO2 96% BMI 39.43 kg/m??? Smoking Status Never BSA 2.43 m??? Allergies Allergen Reactions Adhesive Medications: Current Outpatient Medications on File Prior to Visit Medication Sig Dispense Refill aspirin 81 mg chewable tablet Chew 1 tablet in the morning. atorvastatin (Lipitor) 40 mg tablet Take 1 tablet (40 mg) by mouth at bedtime. 90 tablet 3 buPROPion XL (Wellbutrin XL) 150 mg 24 hr tablet Take 150 mg by mouth in the morning. cloNIDine (Catapres) 0.3 mg tablet Take 1 tablet (0.3 mg) by mouth in the morning and at bedtime. 180 tablet 3 irbesartan-hydrochlorothiazide (Avalide) 150-12.5 mg tablet Take 1 tablet by mouth in the morning and at bedtime. 90 tablet 3 mirtazapine (Remeron) 30 mg tablet Take 30 mg by mouth at bedtime. pantoprazole (ProtoNix) 40 mg EC tablet Take 40 mg by mouth before breakfast. Do not crush, chew, or split. tiZANidine (Zanaflex) 4 mg tablet Amadeo Mendez 100-62.5-25 mcg blister with device INHALE 1 PUFF INTO THE LUNGS ONCE DAILY levothyroxine (Synthroid, Levoxyl) 75 mcg tablet TAKE 1 TABLET BY MOUTH EVERY DAY IN THE MORNING ON AN EMPTY STOMACH FOR 30 DAYS omeprazole (PriLOSEC) [address] capsule TAKE 1 CAPSULE BY MOUTH EVERY DAY 30 MINUTES BEFORE MORNING MEAL [DISCONTINUED] amLODIPine (Norvasc) 10 mg tablet Take 1 tablet (10 mg) by mouth in the morning. (Patient not taking: Reported on 05/30/2023) 90 tablet 3 [DISCONTINUED] carvedilol (Coreg) 25 mg tablet Take 1 tablet (25 mg) by mouth with breakfast and with evening meal. (Patient not taking: Reported on 05/30/2023) 180 tablet 3 No current facility-administered medications on file prior to visit. Physical Exam: Constitutional: Appearance: Normal appearance. Without apparent distress HENT: Head: Normocephalic and atraumatic. Nose: Nose normal. Mouth/Throat: Mouth: Mucous membranes are moist. Eyes: Extraocular Movements: Extraocular movements intact. Conjunctiva/sclera: Conjunctivae normal. Neck: Vascular: No JVD. Cardiovascular: Rate and Rhythm: Normal rate and regular rhythm. Pulses: Dorsalis pedis pulses are 3 on the right side and 3on the left side. Posterior tibial pulses are 3 on the right side and 3 on the left side. Heart sounds: Normal heart sounds, S1 normal and S2 normal. Pulmonary: Effort: Pulmonary effort is normal. Breath sounds: Normal breath sounds. Abdominal: General: Bowel sounds are normal. Palpations: Abdomen is soft. Musculoskeletal: General: Normal range of motion. Cervical back: Normal range of motion. Right lower leg: No edema. Left lower leg: No edema. Skin: General: Skin is warm and dry. Capillary Refill: Capillary refill takes less than 2 seconds. Neurological: General: No focal deficit present. Mental Status: he is alert and oriented to person, place, and time. Psychiatric: Mood and Affect: Mood normal. Behavior: Behavior normal. Thought Content: Thought content normal. Judgment: Judgment normal. Labs: 03/10/23 CBC normal BUN 23, CR 1.41- elevated, GFR 50 A1C 6.4 elevated AST 15, ALT 23, ALP 119- stable liver function Pro BNP 35- normal Chol 226, Trig 251, HDL 53 , LDL 123 TSH 5.191- elevated Last lab values have been reviewed CV Testin08/12/[address] chest 12/2022 No acute abnormality 12/11/22 PFT No echocardiogram results found for the past 12 months Assessment/Plan: Right bundle branch block stable Mixed hyperlipidemia Continue lipitor 40 mg daily Hypertensive disorder Hypertension is stable 138/88 Continue clonidine, irbesartan-hydrochlorothiazide Aneurysm of ascending aorta without rupture F/U with CT surgery in August as scheduled RTC 6 months [facility] 04-25-2023 Evaluation note Encounter Date Diagnosis Assessment Notes Apr, Contact with and (suspected) exposure to covid-19 (ICD-10 - Z20.822) Apr, Viral URI (ICD-10 - J06.9) Viral upper respiratory infection: adult home care material was printed Drink plenty fluids, get plenty of rest. Take Tylenol or Motrin as needed for aches pains or fevers. Follow-up with your family physician if no improvement in 2 to 3 days. J. Hilburn Other 12-01-2023 NoteChief Complaint consultation for GERD HPI Staff 67 year old male presents on consultation from Dr. Latham for GERD. Patient reports chronic dry cough.He feels there is something tickling the back of his throat. He had work up from pulmonology with questionable COPD diagnosis. Denies heartburn, indigestion, abdominal pain or sour taste in mouth. Omeprazole was recently changed to Protonix 40mg daily. Around this time, patient was started on Flonase and Tessalon Perles. Since start of medications, cough has significantly improved. History of Present Illness 67 yo male with h/o htn, hyperlipidemia, COPD, cervical disc disease, bph, referred for GERD; only symptom has been frequent dry cough; going on for years, recent work up by [employer] with possible COPD, also placed on Flonase and Tessalon Perles with improvement, also switched to Protonix daily from omeprazole; much improved now; patient denies heart burn symptoms or dysphagia; no stomach pain; no N/V or bowel changes; no previous EGD; only abd operation umbilical herniorrhaphy; on baby asa, no NSAIDs; no tobacco use; no fmhx of GI malignancy or IBD. Review of Systems PHQ Score Initial Depression Screen Score: 0 SCORE ROS - Provider Constitutional: no fever, no sweats, no weight loss. Eyes: no glasses, no blurred vision, no visual loss. ENMT: no dentures, no hoarseness, no swallowing difficulties, no hearing loss, no ear infection(s),no nose bleeds. Cardiovascular: normal blood pressure, no chest pain, regular heartbeat, no heart murmur. Respiratory: no shortness of breath, no cough, no asthma, no wheezing. Gastrointestinal: no nausea, no vomiting, no diarrhea, no constipation, no blood in stool, no change in bowel habits, no abdominal pain, no hepatitis. Genitourinary: no kidney stones, no urine infection, no dysuria. Musculoskeletal: no pain, no weakness. Skin: no changing moles, no rash, no skin lumps. Neurologic: no seizures, no epilepsy, no headache. Psychiatric: no emotional or psychiatric problem. Heme/Lymph: no bleeding problems, no anemia, no blood clots, no transfusions. Allergy/Immunologic: no swollen lymph nodes/glands, no IV drug abuse. Other: Additional ROS info: Except as noted in the above Review of Systems and in the History of Present Illness, all other systems have been reviewed and are negative or noncontributory. Physical Exam Vitals & Measurements HR: 70(Peripheral) RR: 16 BP: 120/84 HT: 69 in HT: 175 cm WT: 142.9 kg WT: 314.38 lb BMI: 46.66 HEENT: normal conjunctiva, sclera clear, no scleral icterus, EOM intact, PERRLA, oral mucosa moist without lesions. Neck: trachea midline, no mass, symmetric, no thyromegaly or nodules, no adenopathy Respiratory: lungs CTA, respirations non labored. Cardiovascular: regular rate and rhythm, no murmur, no pedal edema or varicosities. Gastrointestinal:obese, soft, non distended, no tenderness, no masses, no palpable hernias, diastasis recti no, no hepatosplenomegaly; normal bs Lymphatic: no cervical adenopathy, no supraclavicular adenopathy. Musculoskeletal: normal gait, digits and nails without infection, nodes, cyanosis, clubbing. Skin: no rashes, no lesions, no ulcers, no subcutaneous nodules, induration. Psychiatric/Neuro: oriented to time, place, person, judgement normal, affect appropriate for age, insight intact, no focal deficits. Tests: review of old records completed , Discussed surgical options, risks, and possible complications with patient. Assessment/Plan 1. Chronic cough (R05.3: Chronic cough) improved; recommend proceed with ENT evaluation; sounds like it may have been allergy/sinus related; even if it was GERD, now controlled; call with problems/questions. 2. BMI 45.0-49.9, adult (Z68.42: Body mass index [BMI] 45.0-49.9, adult) recommend diet and exercise. Follow-up No qualifying data available Problem List/Past Medical History Ongoing Abnormal CT scan, pelvis Allergic rhinitis Aneurysm of ascending aorta Arthritis Bladder tumor BMI 45.0-49.9, adult BPH with obstruction/lower urinary tract symptoms Cervical disc disease Chronic cough Chronic obstructive lung disease Cough Depression Diabetes Essential hypertension HTN (hypertension) Kidney stone Mixed hyperlipidemia Morbid obesity Neoplasm of uncertain behavior of skin Nocturia Right bundle branch block Seborrheic keratoses Skin tags, multiple acquired Historical No qualifying data Procedure/Surgical History Cystoscopy (07/17/2020), exicison skin lesions (09/30/2018), Ankle fusion, Arthroscopy of shoulder,History of cervical spine surgery, Repair of umbilical hernia. Medications Albuterol (Eqv-Ventolin HFA), 2 puff(s), Inhalation, QID, PRN amLODIPine 10 mg Tab, 20 mg= 2 tab(s), Oral, Daily aspirin 81 mg Oral EC Tab, 81 mg= 1 tab(s), Oral, Daily atorvastatin 80 mg Tab, 80 mg= 1 tab(s), Oral, Daily Breo Ellipta 100 mcg-25 mcg inhalation powder, 1 puff(s), Inhalation, Da (more content not included)...[facility]Comment [facility]:Result Comment: Electronically Signed By: LULU JEFFERSON, Haris Dumont\Date and Time Signed: 04/04/23 16:10 [id number] Evaluation note* Encounter Date Diagnosis Assessment Notes Treatment Notes Treatment Clinical Notes Feb, Restrictive lung disease (ICD-10 - J98.4) Feb, Allergic rhinitis (ICD-10 - J30.9) Feb, Cough (ICD-10 - R05.9) J. Hilburn Other 07-18-2022 Evaluation note* Encounter Date Diagnosis Assessment Notes Treatment Notes Treatment Clinical Notes Nov, COVID-19 (ICD-10 - U07.1) Discharge Instructions for COVID-19 (Suspected or Confirmed ) material was printed Drink plenty fluids, get plenty of rest. You must quarantine for 5 days after the onset of your symptoms. Take Tylenol or Motrin for aches pains or fevers. Follow-up with your family physician if no improvement in 2 to 3 days or for any other concerns Nov, Other Additional time spent conducting pre-visit phone call, screening for symptoms, instructions on social distancing, application and removal of PPE, and cleaning of examination room, equipment and supplies was performed. Patient education given for testing methodology and results. Patient care instructions given in writing by [facility] At Home document. J. Hilburn Other 12-07-2021 Evaluation note* Encounter Date Diagnosis Assessment Notes Treatment Notes Treatment Clinical Notes Apr, Acute pain of right shoulder (ICD-10 - M25.511) Apr, Arthritis of right glenohumeral joint (ICD-10 - M19.011) Apr, Tear of right supraspinatus tendon (ICD-10 - M75.101) Patient would like to live with this condition at this time stating pain is tolerable. Patient will work on home exercise. A kenalog cortisone injection was performed into the subacromial space under sterile technique. Patient tolerated the injection well with no adverse reaction. J. Hilburn Other Evaluation + Plan note No data available for this section General Surgery [place] Evaluation noteNo InformationNort [employer] Other Evaluation noteNo assessment information available [facility] Work Phone: History general Narrative - Reported* Type Description Date Medical History hyperlipidemia Medical History hypertension Surgical History neck fusion Surgical History tonsilectomy Surgical History umbilical hernia repair Surgical History vasectomy Hospitalization History see above J. Hilburn Other [facility] general Narrative - Reported* Type Description Date Medical History hyperlipidemia Medical History hypertension Medical History COPD Medical History pulmonary hypertension Surgical History neck fusion Surgical History tonsilectomy Surgical History umbilical hernia repair Surgical History vasectomy Surgical History ankle fusion lt. Surgical History shoulder Hospitalization History see above J. Hilburn Other [facility] general Narrative - Reported* Type Description Date Medical History hyperlipidemia Medical History hypertension Medical History COPD Medical History pulmonary hypertension Medical History allergic rhinitis Medical History restrictive lung disease Surgical History neck fusion Surgical History tonsilectomy Surgical History umbilical hernia repair Surgical History vasectomy Surgical History ankle fusion lt. Surgical History shoulder Hospitalization History see above J. Hilburn Other Hospital Discharge instructions No data available for this section General Surgery [place] Progress note No data available for this section General Surgery [place] Reason for referral (narrative)* Reason Appt: PENDING Refe rral for cough; TM irritation by hairs; globus sensation Diagnosis 1 Cough (R05.9) Referral Organization [facility] Referring Provider First Name Alphonso de leon Referring Provider Last Name Roshan Referring Provider Specialty Pulmonary D iseases Referred Organization [facility] Referred Provider Yarely Matthews Referred Address [address] [place] [id number] Referred Provider Specialty Ear, Nose an d Throat Referral Priority Routine J. Hilburn Other Summary Purpose Family History No Family History Records Found Relationship Condition Age at Onset Recorded Date/T junito Not Specified Cerebrovascular accident (CVA) Unknown History of cardiac disorder Unknown Hypertension Unknown father Hypertension Unknown Dementia Unknown Advance Directives No Advanced Directives Records Found Advance Directive Response Recorded Date/ Time Advance Directives No June 10, 2018 11:30am Chief Complaint and Reason for Visit Chief Complaint R05.9 Additional Source Comments (unrecognized sect ion and content) No Status Records FoundNo Status Records FoundNo Status Records FoundNo Status Records FoundNo Status Records FoundNo Status Records FoundNo Status Records Found INFORMATION SOURCE (unrecogn ized section and content) DATE CREATED AUTHOR 07/08/[address] [facility] DATE CREATED AUTHOR AUTHOR'S ORGANIZ ATION 10/02/2020 [facility] DATE CREATED AUTHOR AUTHOR'S ORGANIZ ATION 08/18/2022 [facility] DATE CREATED AUTHOR AUTHOR'S ORGANIZ ATION 04/07/2023 [facility] DATE CREATED AUTHOR AUTHOR'S ORGANIZ ATION 04/20/2023 [facility] EPIC DATE CREATED AUTHOR AUTHOR'S ORGANIZ ATION 06/13/2023 [facility] DATE CREATED AUTHOR AUTHOR'S ORGANIZ ATION 01/18/2024 [facility] REASON FOR VISIT (unrecogniz ed section and content) Right Shoulder PainWHITE JACK LEEANNA, CONGESTION, B/A, EYE SXS, SCRATCHY THROAT, COUGHcoughingCoughing2 mo f/u RLDCONGESTION, COUGH Care Teams (unrecognized sec tion and content) Team Status: Active Member Role Status Dates Michael Latham MD Primary Care Provider Active Team Status: Inactive Member Role Status Dates Michael Latham MD Primary Care Provider Active John Islas MD Attending Provider Active Goals (unrecognized section and content) Goals may be documented in a n alternate section FOR RECORDS PERTAINING TO PATIENTS WHO ARE OR HAVE BEEN ENROLLED IN A CHEMICAL DEPENDENCY/SUBSTANCEABUSE PROGRAM, SOME INFORMATION MAY BE OMITTED. This clinical summary was aggregated from multiple sources. Caution should be exercised in using it in the provision of clinical care. This summary normalizes information from multiple sources, and as a consequence, information in this document may materially change the coding, format and clinical context of patient data. In addition, data may be omitted in some cases. CLINICAL DECISIONS SHOULD BE BASED ON THE PRIMARY CLINICAL RECORDS. [employer] provides no warranty or guarantee of the accuracy or completeness of information in this document.
--- NOTE | 2024-01-26 16:08 | CT_ITS ---
The [address] [address] Patient Name: YI VALVERDE MRN: [id number] date: 1955 Sex: M Assigned Patient Location: RAD Current Patient Location: [facility] Accession/Order Number: [id number] Exam Date: 01/26/2024 15:59 Report Date: 01/26/2024 16:40 At the request of: MICHAEL BLANCO Procedure: CT head/brain wo con CT head/brain wo con, 01/26/2024 3:59 PM EDT INDICATION: Seizure, R56.9, Concussion, S06.0X9A COMPARISON: There is no appropriate prior study for comparison. TECHNIQUE: Axial CT images of the brain from skull base to vertex, including portions of the face and sinuses, were obtained without contrast . Multiplanar reformatted images were generated and reviewed as needed. Dose reduction techniques were achieved by using automated exposure control and/or adjustment of mA and/or kV according to patient size and/or use of iterative reconstruction technique. FINDINGS: The cerebral sulci as well as ventricular system are appropriate for age. There is no intracranial mass, mass effect, midline shift, intra or extra-axial fluid collection or hemorrhage. Periventricular and centrum semiovale hypodensities are most likely consistent with microvascular ischemic changes. The visualized portions of orbits, mastoid air cells as well as paranasal sinuses are unremarkable. There is no suspicious osteolytic or osteoblastic lesion. CT/CT head/brain wo con IMPRESSION: No acute intracranial process is noted. Electronically authenticated by: EVER NAPIER Date: 01/26/2024 16:40
== END 2024-01-26 15:51 | disposition home or self-care (01) ==
LOC: RAD 15:52
PROVIDERS: PCP Family Medicine; Visit Provider Family Medicine
DX: R56.9 Unspecified convulsions (principal); S06.0X9A Concussion with loss of consciousness of unspecified duration, initial encounter
CPT/HCPCS: 70450

== ENCOUNTER 2024-02-03 09:14 | Outpatient (OUT) | payer BC, SELFPAY ==
--- OUTSIDE RECORDS SUMMARY | 2024-02-03 09:37 | XMS_ITS | CCD ---
Author Organization [facility] Care Team Providers Care Storyboard Artist Name Role Phone PHYSICIAN, DEFAULT Admitting Unavailable [...] BOWSER Admitting Unavailable RODOLFO BOWSER Attending Unavailable NEHAY ., DR RODRIGUEZ Primary Care Unavailable RODOLFO [...] DR RODRIGUEZ Consulting Unavailable John Islas Unavailable MD Michael Latham Primary Care Provider MD John Islas Attending Provider Michael Latham Primary Care Physician [phone] Haris LAWSON Attending Unavailable YARELY MATTHEWS Attending Unavailable MICHAEL LATHAM Referring Unavailable John Islas Attending Unavaila John Golden Admitting Unavaila Michael Garcia Primary Care Unavailable BRISEIDA, HERIBERTO Referring Unavailable BIRSEIDA, HERIBERTO Attending Unavailable GLYNN GABRIEL Attending Unavailable JENN, CATA Attending Unavailable JENN, CATA Attending Unavailable GOINS, HERIBERTO Referring Unavailable GOINS, HERIBERTO Referring Unavailable GOINS, HERIBERTO Referring Unavailable MARGOTCATA Attending Unavailable MICHAEL LATHAM Primary Care Unavailable Allergies Allergy Classification Reported Allergen(s) Allergy Type Date of Onset Reaction(s) Facility (4 sources) Adhesive agent; Translations: [ADHESIVE] Drug allergy (disorder) 1 Redness of Skin [facility] [place] Repository (3 sources) Amino Acids; Translations: [lisinopril] Drug Allergy [facility] [place] Repository (2 sources) Adhesive bandage; Translations: [Adhesive Bandage] Drug allergy Eruption of skin (disorder) [facility] [place] (1 source) Lisinopril; Translations: [lisinopril] Drug Allergy Cough (finding) [facility] [place] (1 source) Doxazosin; Translations: [Cardura] Drug Allergy [facility] Repository (1 source) Adhesive agent Drug allergy (disorder) 3 [facility] Repository Medications Current Medications Medication Drug [...] tablet by maribel th every twenty-four hours buPROPion HCl ER (SR) [...] (2 sources) Nonsteroidal Anti-inflammatory Drug Naproxen Active [place] 2-Qll-Ter-Fish Oil (Fish Oil) 1,200 (144-216) mg Capsule (1 source) Start: take 1 capsule by mouth once daily at bedtime [place] 8-Uwi-Jvx-Fish Oil (Fish Oil) 1,200 (144-216) mg Capsule [...] (1 source) Central alpha-2 Adrenergic Agonist Start: 023 take 2 tablets by mouth at bedtime tiZANidine 4 mg Tab 8 mg = 2 tab(s), Oral, Bedtime, Refills(s) 0 Start Date: 03/19/23 Status: Ordered Trelegy Ellipta 200 mcg-62.5 mcg-25 mcg/inh inhalation powder (1 source) Start: 023 take 1 puff(s) by inhalation once daily Trelejerardo Ellipta 200 mcg-62.5 mcg-25 mcg/inh inhalation powder [...] hyperlipidemia; Translations: [Mixed hyperlipidemia] Onset: 12-07-2021 Chronic Epilepsy; convulsions (1 source) Unspecified convulsions; Translations: [Unspecified convulsions] Onset: 01-25-2024 Episodic Esophageal disorders (2 sources) Gastro-esophageal reflux disease [...] shoulder, not specified as traumatic] Episodic Other injuries and conditions due to external causes (1 source) Unspecified multiple injuries, initial encounter; Translations: [Unspecified multiple injuries, initial encounter] Onset: 01-25-2024 Episodic Other lower respiratory disease (1 source) [...] Test Name Value Interpretation Reference Range Facility CBC with Diffon 01-25-2024 Abs. Basophil 0.08 k/uL Normal 0.00-0.20 [facility] Comment on above: Performed By: #### C DP, CP, TROPI #### [facility] [address] [place] [address] Dr. [place], [place] [address] Traditional Chinese Herbalist: Crescencio Lal MD Abs.Imm.Granulocyte 0.03 k/uL Normal 0.00-0.30 [facility] Comment on above: Performed By: #### C DP, CP, TROPI #### [address] [place] [address] Traditional Chinese Herbalist: Crescencio Lal MD Abs.Neutrophil (Seg) 5.34 k/uL Normal 1.50-8.10 [facility] Comment on above: Performed By: #### C DP, CP, TROPI #### [address] Garcia, [place] [address] Traditional Chinese Herbalist: Crescencio Lal MD Basophils/100 WBC (Bld) 1 % Normal 0-2 [facility] Comment on above: Performed By: #### C DP, CP, TROPI #### [address] Garcia, [place] [address] Traditional Chinese Herbalist: Crescencio Lal MD Eosinophils (Bld) [#/Vol] 0.28 10*3/uL Normal 0.00-0.44 [facility] Comment on above: Performed By: #### C DP, CP, TROPI #### [address] Garcia, [place] [address] Traditional Chinese Herbalist: Crescencio Lal MD Eosinophils/100 WBC (Bld) 4 % Normal 1-4 [facility] Comment on above: Performed By: #### C DP, CP, TROPI #### [address] Garcia, [place] [id number] Traditional Chinese Herbalist: Crescencio Lal MD Erythrocyte distribution width (RBC) [Ratio] 12.7 % Normal 11.8-14.4 [facility] Comment on above: Performed By: #### C DP, CP, TROPI #### [address] Garcia, [place] [id number] Traditional Chinese Herbalist: Crescencio Lal MD Hematocrit (Bld) [Volume fraction] 36.3 % Low 40.7-50.3 [facility] Comment on above: Performed By: #### C DP, CP, TROPI #### [address] Garcia, [facility]83 Traditional Chinese Herbalist: Crescencio Lal MD Hemoglobin (Bld) [Mass/Vol] 12.8 g/dL Low 13.0-17.0 [facility] Comment on above: Performed By: #### C DP, CP, TROPI #### [address] Garcia, [place] [id number] Traditional Chinese Herbalist: Crescencio Lal MD Immature granulocytes/100 WBC (Bld) 0 % Normal 0 [facility] Comment on above: Performed By: #### C DP, CP, TROPI #### [address] Garcia, [place] [id number] Traditional Chinese Herbalist: Crescencio Lal MD Lymphocytes (Bld) [#/Vol] 1.45 10*3/uL Normal 1.10-3.70 [facility] Comment on above: Performed By: #### C DP, CP, TROPI #### [address] Garcia, [place] [id number] Traditional Chinese Herbalist: Crescencio Lal MD Lymphocytes/100 WBC (Bld) 18 % Low 24-43 [facility] Comment on above: Performed By: #### C DP, CP, TROPI #### [address] Garcia, [facility]83 Traditional Chinese Herbalist: Crescencio Lal MD MCH (RBC) [Entitic mass] 32.7 pg Normal 25.2-33.5 [facility] Comment on above: Performed By: #### C DP, CP, TROPI #### [facility] [address] [place] [address] Dr. Garcia, [facility]83 Traditional Chinese Herbalist: Crescencio Lal MD MCHC (RBC) [Mass/Vol] 35.3 g/dL High 28.4-34.8 [facility] Comment on above: Performed By: #### C DP, CP, TROPI #### [address] Garcia, [place] [address] Traditional Chinese Herbalist: Crescencio Lal MD MCV (RBC) [Entitic vol] 92.6 fL Normal 82.6-102.9 [facility] Comment on above: Performed By: #### C DP, CP, TROPI #### [address] Garcia, [facility]83 Traditional Chinese Herbalist: Crescencio Lal MD Monocytes (Bld) [#/Vol] 0.81 10*3/uL Normal 0.10-1.20 [facility] Comment on above: Performed By: #### C DP, CP, TROPI #### [address] Garcia, [facility]65 ( Traditional Chinese Herbalist: Crescencio Lal MD Monocytes/100 WBC (Bld) 10 % Normal 3-12 [facility] Comment on above: Performed By: #### C DP, CP, TROPI #### [facility] [address] Garcia, [facility]83 Traditional Chinese Herbalist: Crescencio Lal MD Neutrophil (Seg) 67 % High 36-65 [facility] Comment on above: Performed By: #### C DP, CP, TROPI #### [facility] [address] [place] [address] Dr. Garcia, [facility]83 Traditional Chinese Herbalist: Crescencio Lal MD NRBC Automated 0.0 per 100 WBC Normal 0.0 [facility] Comment on above: Performed By: #### C OLIVIA CASTILLO, TROPI #### [facility] [address] [place] [address] [place] [address] Traditional Chinese Herbalist: Crescencio Lal MD Platelet mean volume (Bld) [Entitic vol] 9.5 fL Normal 8.1-13.5 [facility] Comment on above: Performed By: #### C DP CP, TROPI #### [address] Garcia, [place] [id number] Traditional Chinese Herbalist: Crescencio Lal MD Platelets (Bld) [#/Vol] 368 10*3/uL Normal 138-453 [facility] Comment on above: Performed By: #### C ANNA CP, TROPI #### [address] Garcia, [place] [id number] Traditional Chinese Herbalist: Crescencio Lal MD RBC (Bld) [#/Vol] 3.92 10*6/uL Low 4.21-5.77 [facility] Comment on above: Performed By: #### C OLIVIA CASTILLO, TROPI #### [address] Garcia, [place] [id number] Traditional Chinese Herbalist: Crescencio Lal MD WBC (Bld) [#/Vol] 8.0 10*3/uL Normal 3.5-11.3 [facility] Comment on above: Performed By: #### C ANNA CP, TROPI #### [address] [place] [address] Traditional Chinese Herbalist: Crescencio Lal MD CT HEAD WO CONTRASTon 2023 CT HEAD WO CONTRAST ADDENDUM: Findings were communicated to Dr. Cata Gunn by the CORE team on 01/25/2024 at 3:19 pm. Electronically Signed by: ALYSON BOLDEN on FriJan 25, 2024 3:23:13 PM EDT EXAMINATION: CT OF THE HEAD WITHOUT CONTRAST 01/25/2024 1:57 pm TECHNIQUE: CT of the head was performed without the administration of intravenous contrast. Automated exposure control, iterative reconstruction, and/or weight based adjustment of the mA/kV was utilized to reduce the radiation dose to as low as reasonably achievable. COMPARISON: None. HISTORY: ORDERING SYSTEM PROVIDED HISTORY: AMS TECHNOLOGIST PROVIDED HISTORY: AMS Decision Support Exception - unselect if not a suspected or confirmed emergency medical condition->Emergency Medical Condition (MA) FINDINGS: BRAIN/VENTRICLES: There is no acute intracranial hemorrhage, mass effect or midline shift. No abnormal extra-axial fluid collection. The freitas-white differentiation is maintained without evidence of an acute infarct. There is no evidence of hydrocephalus. ORBITS: The visualized portion of the orbits demonstrate no acute abnormality. SINUSES: There is a small mucous retention cyst in the left maxillary sinus. The paranasal sinuses and mastoid air cells are otherwise normally aerated. SOFT TISSUES/SKULL: No acute abnormality of the visualized skull or soft tissues. IMPRESSION: No acute intracranial findings. Interpreted by: Alyson Bolden MD Signed by: Alyson Bolden MD 01/25/24 Edited Result - FINAL Normal [facility] CTA HEAD NECK W CONTRASTon 0 01-25-2024 CTA HEAD NECK W CONTRAST EXAMINATION: CTA OF THE HEAD AND NECK WITH CONTRAST 01/25/2024 1:58 pm: TECHNIQUE: CTA of the head and neck was performed with the administration of intravenous contrast. Multiplanar reformatted images are provided for review. MIP images are provided for review. Stenosis of the internal carotid arteries measured using NASCET criteria. Automated exposure control, iterative reconstruction, and/or weight based adjustment of the mA/kV was utilized to reduce the radiation dose to as low as reasonably achievable. COMPARISON: None. HISTORY: ORDERING SYSTEM PROVIDED HISTORY: Altered mental status TECHNOLOGIST PROVIDED HISTORY: Altered mental status Decision Support Exception - unselect if not a suspected or confirmed emergency medical condition->Emergency Medical Condition (MA) FINDINGS: CTA NECK: AORTIC ARCH/ARCH VESSELS: No dissection or arterial injury. No significant stenosis of the brachiocephalic or subclavian arteries. CAROTID ARTERIES: No dissection, arterial injury, or hemodynamically significant stenosis by NASCET criteria. VERTEBRAL ARTERIES: No dissection, arterial injury, or significant stenosis. SOFT TISSUES: The lung apices are clear. No cervical or superior mediastinal lymphadenopathy. The larynx and pharynx are unremarkable. No acute abnormality of the salivary and thyroid glands. Right lobe thyroid nodule measures 1 cm in size. BONES: No acute osseous abnormality. CTA HEAD: ANTERIOR CIRCULATION: No significant stenosis of the intracranial internal carotid, anterior cerebral, or middle cerebral arteries. No aneurysm. POSTERIOR CIRCULATION: No significant stenosis of the vertebral, basilar, or posterior cerebral arteries. No aneurysm. OTHER: No dural venous sinus thrombosis on this non-dedicated study. BRAIN: No mass effect or midline shift. No extra-axial fluid collection. The freitas-white differentiation is maintained. IMPRESSION: Unremarkable CTA of the head and neck. Interpreted by: Yuri Samuels MD Signed by: Yuri Samuels MD 01/25/24 Final result Normal [facility] Comp Metabolic Profon 2023 Anion gap [Moles/Vol] 13 mmol/L Normal - [facility] Comment on above: Performed By: #### PB CRABTREEU, UAX #### [facility] [address] [place] [address] [place] [address] Traditional Chinese Herbalist: Crescencio Lal MD Chloride [Moles/Vol] 104 mmol/L Normal 98-107 [facility] Comment on above: Performed By: #### PRANAV CRABTREE, UAX #### [address] [place], [place] [id number] Traditional Chinese Herbalist: Crescencio Lal MD Sodium [Moles/Vol] 141 mmol/L Normal 136-145 [facility] Comment on above: Performed By: #### PB CRABTREEU, UAX #### [facility] [address] [place] [address] Traditional Chinese Herbalist: Crescencio Lal MD Potassium [Moles/Vol] 3.8 mmol/L Normal 3.7-5.3 [facility] Comment on above: Performed By: #### PB CRABTREEU, UAX #### [facility] [address] [place] [address] Traditional Chinese Herbalist: Crescencio Lal MD Albumin [Mass/Vol] 4.0 g/dL Normal 3.5-5.2 [facility] Comment on above: Performed By: #### U SAM PRANAV, UAX #### [facility] [address] [place] [address] Traditional Chinese Herbalist: Crescencio Lal MD Albumin/Glob Ratio 1.8 Normal 1.0-2.5 [facility] Comment on above: Performed By: #### U SAM PRANAV, UAX #### [facility] [address] [place], [place] [id number] Traditional Chinese Herbalist: Crescencio Lal MD Alkaline Phos 72 U/L Normal 40-129 [facility] Comment on above: Performed By: #### PB CRABTREEU, UAX #### [facility] [address] [place], [place] [phone] Traditional Chinese Herbalist: Crescencio Lal MD ALT [Catalytic activity/Vol] 16 U/L Normal 10-50 [facility] Comment on above: Performed By: #### PB CRABTREEU, UAX #### [address] [place], [place] [id number] Traditional Chinese Herbalist: Crescencio Lal MD AST [Catalytic activity/Vol] 19 U/L Normal 10-50 [facility] Comment on above: Performed By: #### PB CRABTREEU, UAX #### [facility] [address] [place], [place] [address]483 Traditional Chinese Herbalist: Crescencio Lal MD Bilirubin [Mass/Vol] 0.4 mg/dL Normal 0.00-1.20 [facility] Comment on above: Performed By: #### U SAM PRANAV, UAX #### [facility] [address] [place] [address] Traditional Chinese Herbalist: Crescencio Lal MD BUN/CRE Ratio 13 Normal 9-20 [facility] Comment on above: Performed By: #### U SAM PRANAV, UAX #### [facility] [address] [place] [address] Traditional Chinese Herbalist: Crescencio Lal MD Calcium [Mass/Vol] 9.4 mg/dL Normal 8.6-10.4 [facility] Comment on above: Performed By: #### U AALIYAHO PRANAV, UAX #### [facility] [address] [place] [address] Traditional Chinese Herbalist: Crescencio Lal MD CO2 [Moles/Vol] 24 mmol/L Normal 20-31 [facility] Comment on above: Performed By: #### PRANAV CRABTREE, UAX #### [facility] [address] [place] [address] Traditional Chinese Herbalist: Crescencio Lal MD Creatinine [Mass/Vol] 1.0 mg/dL Normal 0.70-1.20 [facility] Comment on above: Performed By: #### Titi VARGAS PRANAV, UAX #### [facility] [address] [place] [address] Traditional Chinese Herbalist: Crescencio Lal MD GFR/1.73 sq M.predicted among non-blacks MDRD (S/P/Bld) [Vol rate/Area] 80 mL/min/{1.73_m2} Normal >60 [facility] Comment on above: Result Comment: These results are not intended for use in patients <18 years of age. eGFR results are calculated without a race factor using the 2020 CKD-EPI equation. Careful clinical correlation is recommended, particularly when comparing to results calculated using previous equations. The CKD-EPI equation is less accurate in patients with extremes of muscle mass, extra-renal metabolism of creatine, excessive creatine ingestion, or following therapy that affects renal tubular secretion. Performed By: #### U MICAO, PRANAV, UAX #### [facility] [address] [place] [address] Traditional Chinese Herbalist: Crescencio Lal MD Glucose [Mass/Vol] 105 mg/dL High 74-99 [facility] Comment on above: Performed By: #### U MICAO, PRANAV, UAX #### [facility] [address] [place] [address] Dr. Garcia, [place] [address]83 Traditional Chinese Herbalist: Crescencio Lal MD Protein [Mass/Vol] 6.1 g/dL Low 6.6-8.7 [facility] Comment on above: Performed By: #### U MICAO, PRANAV, UAX #### [facility] [address] [place] [address] Dr. [place], [place] [phone] Traditional Chinese Herbalist: Crescencio Lal MD Urea nitrogen [Mass/Vol] 13 mg/dL Normal 8-23 [facility] Comment on above: Performed By: #### U MICAO, PRANAV, UAX #### [address] [place] [address] Traditional Chinese Herbalist: Crescencio Lal MD Drug Scr, Abuse, Uron 2023 Amphetamine(s),Ur Negative Normal NEG [facility] Comment on above: Result Comment: C1KN M Performed By: #### U MICAO, PRANAV, UAX #### [address] [place], [place] [phone] Traditional Chinese Herbalist: Crescencio Lal MD Barbiturate(s),Ur Negative Normal NEG [facility] Comment on above: Result Comment: C200 NM Performed By: #### U MICAO, PRANAV, UAX #### [address] [place] [address] Traditional Chinese Herbalist: Crescencio Lal MD Benzodiazepine(s) Negative Normal NEG [facility] Comment on above: Result Comment: C200 NM Performed By: #### U MICAO, PRANAV, UAX #### [address] [place] [address] Traditional Chinese Herbalist: Crescencio Lal MD Buprenorphrine, Ur Negative Normal NEG [facility] Comment on above: Result Comment: C5NM Performed By: #### U MICAO, PRANAV, UAX #### [facility] [address] [place], [place] [id number] Traditional Chinese Herbalist: Crescencio Lal MD Cannabinoid(s),Ur Negative Normal NEG [facility] Comment on above: Result Comment: C50N M Performed By: #### U MICAO, PRANAV, UAX #### [facility] [address] [place], [place] [address]83 Traditional Chinese Herbalist: Crescencio Lal MD Cocaine Metabolite Negative [facility] Comment on above: Result Comment: C300 NM Performed By: #### U MICAO, PRANAV, UAX #### [facility] [address] [place] [address] Dr. [place], [place] 590[address]83 Traditional Chinese Herbalist: Crescencio Lal MD Fentanyl, Urine Negative Normal [facility] Comment on above: Result Comment: C5NM Performed By: #### U MICAO, PRANAV, UAX #### [address] [place], [place] [address]83 Traditional Chinese Herbalist: Crescencio Lal MD Interpretive Info This method is a screening test to detect only these drug classes as part of a Normal [facility] Comment on above: Result Comment: medi ulysses workup. Confirmatory testing by another method should be ordered if clinically indicated. Performed By: #### U MICAO, PRANAV, UAX #### [facility] [address] [place] [address] Dr. [place], [place] [id number] Traditional Chinese Herbalist: Crescencio Lal MD Methadone Ql (U) Negative Normal NEG [facility] Comment on above: Result Comment: C300 NM Performed By: #### U MICAO, PRANAV, UAX #### [facility] [address] [place], [place] [address] Traditional Chinese Herbalist: Crescencio Lal MD Opiate(s), Ur Negative Normal NEG [facility] Comment on above: Result Comment: C300 NM UROPIC Performed By: #### U MICAO, PRANAV, UAX #### [facility] [address] [place] [address] Traditional Chinese Herbalist: Crescencio Lal MD Oxycodone, Urine Negative Normal NEG [facility] Comment on above: Result Comment: Cuto ff: 100 ng/ml Performed By: #### U MICAO, PRANAV, UAX #### [facility] [address] [place], [place] [address]83 Traditional Chinese Herbalist: Crescencio Lal MD Phencyclidine, Ur Negative Normal NEG [facility] Comment on above: Result Comment: C25N M Performed By: #### U SAM, PRANAV, UAX #### [facility] [address] [place] [address] Dr. [place] [id number] Traditional Chinese Herbalist: Crescencio Lal MD Ethanol Alcoholon 01-25-2024 Ethanol [Mass/Vol] mg/dL Normal <10 [facility] Comment on above: Performed By: #### A LCB #### [facility] [address] [place] [address] [place] [address] Traditional Chinese Herbalist: Crescencio Lal MD Ethanol percent 0.002 % Normal <0.010 [facility] Comment on above: Performed By: #### A LCB #### [facility] [address] [place], [place] 393[address]83 Traditional Chinese Herbalist: Crescencio Lal MD Glucose, Whole Bloodon 01-24 Glucose [Mass/Vol] 95 mg/dL Normal 74-100 [facility] TSH w/reflex to FT4on 2023 Thyroid Stim. Horm. 1.37 uIU/mL Normal 0.27-4.20 [facility] Comment on above: Performed By: #### T SHX #### [facility] [address] [place] [address] Traditional Chinese Herbalist: Crescencio Lal MD Troponinon 01-25-2024 Troponin, High Sens 18 ng/L Normal 0-22 [facility] Comment on above: Result Comment: High Sensitivity Troponin values cannot be compared with other Troponin methodologies. Performed By: #### C DP, CP, TROPI #### [facility] [address] [place], [place] [id number] Traditional Chinese Herbalist: Crescencio Lal MD UA w/Reflex Cultureon 2023 Bilirubin, SemiQt,Ur Negative Normal NEG [facility] Comment on above: Performed By: #### U MICAO, PRANAV, UAX #### [facility] [address] [place], [place] [address]83 Traditional Chinese Herbalist: Crescencio Lal MD Blood, Urine Negative Normal NEG [facility] Comment on above: Performed By: #### U MICAO, PRANAV, UAX #### [facility] [address] [place], [place] [id number] Traditional Chinese Herbalist: Crescencio Lal MD Clarity (U) Clear Normal CLEAR [facility] Comment on above: Performed By: #### U MICAO, PRANAV, UAX #### [address] [place], [place] [address]83 Traditional Chinese Herbalist: Crescencio Lal MD Color (U) Yellow Normal YEL [facility] Comment on above: Performed By: #### U MICAO, PRANAV, UAX #### [facility] [address] [address] [place], [place] [id number] Traditional Chinese Herbalist: Crescencio Lal MD Glucose Ql (U) Negative Normal NEG [facility] in Hospital Comment on above: Performed By: #### U MICAO, PRANAV, UAX #### [facility] [address] [place] [address] Traditional Chinese Herbalist: Crescencio Lal MD Ketones Ql (U) Negative Normal NEG [facility] in Hospital Comment on above: Performed By: #### U MICAO, PRANAV, UAX #### [facility] [address] [place], [place] [id number] Traditional Chinese Herbalist: Crescencio Lal MD Leukocyte esterase Test strip Ql (U) Negative Normal NEG [facility] Comment on above: Performed By: #### U MICAO, PRANAV, UAX #### [address] [place], [place] [id number] Traditional Chinese Herbalist: Crescencio Lal MD Nitrite,Ur Negative Normal NEG [facility] Comment on above: Performed By: #### U MICAO, PRANAV, UAX #### [address] [place], [place] [id number] Traditional Chinese Herbalist: Crescencio Lal MD PH,Ur 6.5 Normal 5.0-9.0 [facility] Comment on above: Performed By: #### U MICAO, PRANAV, UAX #### [address] [place], [place] [id number] Traditional Chinese Herbalist: Crescencio Lal MD Protein Ql (U) TRACE Abnormal NEG [facility] Comment on above: Performed By: #### U MICAO, PRANAV, UAX #### [address] [place], [place] [address] Traditional Chinese Herbalist: Crescencio Lal MD Spec. [place],Ur 1.020 Normal 1.010-1.020 [facility] Comment on above: Performed By: #### U MICAO, PRANAV, UAX #### [address] [place], [place] [id number] Traditional Chinese Herbalist: Crescencio Lal MD Urobilinogen,Ur Normal Normal 0.0-1.0 [facility] Comment on above: Performed By: #### U MICAO, PRANAV, UAX #### [address] [place], [place] [address]83 Traditional Chinese Herbalist: Crescencio Lal MD Urinalysis,Microon 4 Casts 2 TO 5 Normal [facility] Comment on above: Result Comment: HYAL INE Performed By: #### U MICAO, PRANAV, UAX #### [facility] [address] [place] [address] Traditional Chinese Herbalist: Crescencio Lal MD Epithelial cells LM Ql (Urine sed) None Normal 0-5 [facility] Comment on above: Performed By: #### U MICAO, PRANAV, UAX #### [facility] [address] [place] [address] Traditional Chinese Herbalist: Crescencio Lal MD Mucus Strands 1+ Abnormal NONE [facility] Comment on above: Performed By: #### U MICAO, PRANAV, UAX #### [facility] [address] [place], [place] [address] Traditional Chinese Herbalist: Crescencio Lal MD Urine RBC's 0 TO 2 Normal 0-2 [facility] Comment on above: Performed By: #### U MICAO, PRANAV, UAX #### [facility] [address] [place] [address] Traditional Chinese Herbalist: Crescencio Lal MD Urine WBC's None Normal 0-5 [facility] Comment on above: Performed By: #### U MICAO, PRANAV, UAX #### [facility] [address] [place] [address] Traditional Chinese Herbalist: Crescencio Lal MD Office Visiton 01-16-2024 Follow-up visit [id number] Yi Driver 1955 M Date Provider Department Center 01/16/2024 CATA GATES Family History Problem Relation Age of Onset Coronary artery disease Sister Coronary artery disease Maternal Grandfather Family Status - Relation Status Age at Sister Maternal Grandfather Level of Service:15580 [place] OFFICE/OUTPATIENT ESTABLISHED LOW MDM 20 MIN Reason for Visit and Comments: Hyperlipidemia [182] Hypertension [309409] - Pt here for three month follow up Normal [facility] 36on 10-27-2023 36 Per ALG pt is to double coreg [facility] Telephoneon 10-24-2023 Telephone [id number] Yi Driver 1955 [facility] Provider Department Center 10/24/2023 113-MATHEUS GOMEZ HVCVASENDO [facility] Family History Problem Relation Age of Onset Coronary artery disease Sister Coronary artery disease Maternal Grandfather Family Status - Relation Status Age at Sister Maternal Grandfather [facility] 36on 10-15-2023 36 Patient called with BP's for you since you restarted carvedilol. 147/100 136/109 HR 115 143/106 HR 109 He takes carvedilol at 4am and 4pm. The readings he gave me were taking just before his second dose at 4pm. Did you want to change the dosage? Please advise. Thanks. [facility] Telephoneon 10-15-2023 Telephone [id number] Yi Driver 1955 [facility] Provider Department Center 10/15/2023 928-SRIKANTH RITCHIE [facility] Family History Problem Relation Age of Onset Coronary artery disease Sister Coronary artery disease Maternal Grandfather Family Status - Relation Status Age at Sister Maternal Grandfather [facility] Office Visiton 10-10-2023 Follow-up visit [id number] Yi Driver 1955 [facility] Provider Department Center 10/10/2023 3848-GLYNN GABRIEL [facility] Family History Problem Relation Age of Onset Coronary artery disease Sister Coronary artery disease Maternal Grandfather Family Status - Relation Status Age at Sister Maternal Grandfather Level of Service:54019 [place] OFFICE/OUTPATIENT ESTABLISHED LOW MDM 20 MIN [facility] Orders Onlyon 10-10-2023 Orders Only [id number] Yi Driver 1955 [facility] Provider Department Center 10/10/2023 895-ANA BOURGEOIS [facility] Family History Problem Relation Age of Onset Coronary artery disease Sister Coronary artery disease Maternal Grandfather Family Status - Relation Status Age at Sister Maternal Grandfather [facility] Office Visiton 10-07-2023 Follow-up visit [id number] Yi Driver 1955 M Date Provider Department Center 10/07/2023 40584-HVPHKHERIBERTO GOINS HVCVASENDO [place] [facility] Family History Problem Relation Age of Onset Coronary artery disease Sister Coronary artery disease Maternal Grandfather Family Status - Relation Status Age at Sister Maternal Grandfather Level of Service:26240 [place] OFFICE/OP CONSLTJ NEW/EST PT HIGH MDM 55 MINUTES Reason for Visit and Comments: New Patient [632] - Ascending aortic aneurysm, Ref by Cata Barajas [facility] 36on 09-22-2023 36 Regarding echo result from 09/12/2023: Srikanth. He was supposed to F/U with CT Surgery in August? See if he did somewhere other than [place], If not he needs an appointment. So [...] referral. Order entered for CT surgery at [facility]. Normal [facility] Office Visiton 05-30-2023 Follow-up visit [id number] VillaYi Alvarez 1955 M Date Provider Department Center 05/30/2023 120-CATA BARAJAS CARD [facility] Family History Problem Relation Age of Onset Coronary artery disease Sister Coronary artery disease Maternal Grandfather Family Status - Relation Status Age at Sister Maternal Grandfather Level of Service:78962 [place] OFFICE/OUTPATIENT ESTABLISHED MOD MDM 30 MIN [facility] COVID/FLU/RSV RT-PCRon 04-25 SARS-CoV-2 (COVID-19) RNA TEGAN+probe Ql (Unsp spec) Negative [facility] [employer] Other COVID/FLU/RSV RT-PCR Negative [facility] [employer] Other Facesheeton 04-07-2023 Facesheet [id number] 6#1.00TIFF Shaye Ward [facility] Ambulatory Visit Summaryon 1 06-05-2022 Ambulatory Visit Summary IY DRIVER :1955 Visit Date:04/04/2023 Ambulatory Visit Instructions [...] for choosing us for your care. Normal [facility] Physician Referralon 023 Physician Referral [id number] #[id number] Normal [facility] ECHOCARDIO M/2D COMPLETEon 0 08-12-2022 ECHOCARDIO M/2D COMPLETE Patient: YI DRIVER Exam Date: 08/12/2022 : 1955 Gender:M Ordering : RODOLFO BOWSER [facility] Admission #: [id number] Family : DR MICHAEL LATHAM . Order #: [id number] CLICK HERE TO VIEW EXAM ECHOCARDIOGRAM REPORT [...] M.D. on 08/12/2022 at 16:34 Normal [facility] INSULINon 12-10-2021 Insulin 14.3 uIU/mL Normal 2.6-24.9 [facility] Comment on above: Performed By: #### I NSULIN #### [facility] [address] [address] [address] Neo Mccall TESTOSTERONE, TOTALon 2021 Testosterone [Mass/Vol] 269 ng/dL Normal 264-916 [facility] Comment on above: Result Comment: Adul t male reference interval is based on a population of healthy nonobese males (BMI <30) between 19 and 39 years old. Raya, et.al. JCEM 2017,102;0409-7329. PMID: [id number]. Performed By: #### T ESTTOT #### [facility] [address] [address] [address] Neo Mccall OCC BLD IMMUNO SCREENon OCCULT BLOOD Negative Normal NEGATIVE [facility] Comment on above: Performed By: #### O BSCRN ####[facility] [id number] [address] Neo Mccall CBC AUTO DIFFon 12-07-2021 BASO # 0.1 103/ul Normal 0.0-0.1 [facility] Comment on above: Performed By: #### C BC #### [facility] [address] [address] [address] Neo Mccall Basophils/100 WBC (Bld) 0.9 % Normal 0.2-2.0 [facility] Comment on above: Performed By: #### C BC #### [facility] [address] [address] [address] Neo Mccall EO # 0.4 103/ul Normal 0.0-0.7 [facility] Comment on above: Performed By: #### C BC #### [facility] [address] [address] [address] Neo Mccall Eosinophils/100 WBC (Bld) 4.7 % Normal 0.9-7.0 [facility] Comment on above: Performed By: #### C BC #### [facility] [address] [place] [address] Dr. Neo Mccall Erythrocyte distribution width (RBC) [Ratio] 12.8 % Normal 11.0-15.0 [facility] Comment on above: Performed By: #### C BC #### [facility] [address] [place] [address] Dr. Neo Mccall Hematocrit (Bld) [Volume fraction] 42.7 % Normal 42.0-54.0 [facility] Comment on above: Performed By: #### C BC #### [facility] [address] [place] [address] Dr. Neo Mccall Hemoglobin (Bld) [Mass/Vol] 14.6 g/dL Normal 14.0-18.0 [facility] Comment on above: Performed By: #### C BC #### [facility] [address] [place] [address] Dr. Neo Mccall IG # 0.02 10e3/ul Normal 0.00-0.03 [facility] Comment on above: Performed By: #### C BC #### [facility] [address] [place] [address] Dr. Neo Mccall IG % 0.2 % Normal 0.0-0.5 [facility] Comment on above: Performed By: #### C BC #### [facility] [address] [place] [address] Dr. Neo Mccall LYMPH # 2.0 103/ul Normal 1.2-3.8 [facility] Comment on above: Performed By: #### C BC #### [facility] [address] [place] [address] Dr. Neo Mccall Lymphocytes/100 WBC (Bld) 22.9 % Normal 20.5-60.0 [facility] Comment on above: Performed By: #### C BC #### [facility] [address] [place] [address] Dr. Neo Mccall MANUAL DIFF REQ NO Normal [facility] Comment on above: Performed By: #### C BC #### [facility] [address] [place] [address] Dr. Neo Mccall MCH (RBC) [Entitic mass] 32.1 pg Normal 25.9-34.0 [facility] Comment on above: Performed By: #### C BC #### [facility] [address] [address] [address] Neo Mccall MCHC (RBC) [Mass/Vol] 34.2 g/dL Normal 29.9-35.2 [facility] Comment on above: Performed By: #### C BC #### [facility] [id number] Neo Mccall MCV (RBC) [Entitic vol] 93.8 fL Normal 80.0-94.0 [facility] Comment on above: Performed By: #### C BC #### [facility] [address] [address] [address] Neo Mccall MONO # 0.8 103/ul Normal 0.3-0.8 [facility] Comment on above: Performed By: #### C BC #### [facility] [address] [place] [address] Dr. Neo Mccall Monocytes/100 WBC (Bld) 8.9 % Normal 1.7-12.0 [facility] Comment on above: Performed By: #### C BC #### [facility] [address] [place] [address] Dr. Neo Mccall NEUT # 5.4 103/ul Normal 1.4-6.5 [facility] Comment on above: Performed By: #### C BC #### [facility] [address] [place], [place] [address] Dr. Neo Mccall Neutrophils/100 WBC (Bld) 62.4 % Normal 43.0-75.0 [facility] Comment on above: Performed By: #### C BC #### [facility] [address] [place], [place] [address] Dr. Neo Mccall Platelet mean volume (Bld) [Entitic vol] 9.4 fL Critically low 9.5-13.5 [facility] Comment on above: Performed By: #### C BC #### [facility] [address] [place], [place] [address] Dr. Neo Mccall PLT 321 103/ul Normal 150-450 [facility] Comment on above: Performed By: #### C BC #### [facility] [address] [address] [address] Neo Mccall RBC 4.55 106/ul Critically low 4.70-6.10 [facility] Comment on above: Performed By: #### C BC #### [facility] [address] [address] [address] Neo Mccall WBC 8.7 103/ul Normal 4.0-11.0 [facility] Comment on above: Performed By: #### C BC #### [facility] [address] [address] [address] Neo Mccall FREE THYROXINE INDEX T7on FTI 2.74 Normal 1.30-4.50 [facility] Comment on above: Performed By: #### T 7, TSH, CMP, LIPID #### [facility] [address] [address] [address] Neo Mccall T3U 33.0 % Normal 33.0-40.0 [facility] Comment on above: Performed By: #### T 7, TSH, CMP, LIPID #### [facility] [address] [address] [address] Neo Mccall T4 [Mass/Vol] 8.30 ug/dL Normal 4.50-12.10 [facility] [place] Comment on above: Performed By: #### T 7, TSH, CMP, LIPID #### [facility] [address] [address] [address] Neo Mccall GLYCOHEMOGLOBIN A1Con 2021 ADA RECOMMENDATION SEE BELOW Normal [facility] Comment on above: Result Comment: ADA RECOMMENDED LIMIT 4.0 - 6.0 ADA THERAPEUTIC TARGET < 7.0 ACTION SUGGESTED > 7.0 Performed By: #### A 1C ####[facility] [id number] [address]Dr. Neo Mccall Glucose [Mass/Vol] 123 mg/dL Normal [facility] Comment on above: Performed By: #### A 1C ####[facility] [address] [address]Dr. Neo Mcacll HbA1c (Bld) [Mass fraction] 5.9 % Normal 4.5-6.2 [facility] Comment on above: Performed By: #### A 1C ####[facility] [address] [place], [place] [address]. Neo Mccall IRONon 12-07-2021 Iron [Mass/Vol] 127.0 ug/dL Normal 65.0-175.0 [facility] Comment on above: Performed By: #### P SASC, IRON #### [facility] [address] [address] [address] Neo Mccall LIPID PROFILEon 12-07-2021 CHOL-HDL RATIO NORM SEE BELOW Normal [facility] Comment on above: Result Comment: 3.3 - 4.4 LOW RISK 4.4 - 7.1 AVERAGE RISK 7.1 - 11.0 MODERATE RISK >11.0 HIGH RISK Performed By: #### T 7, TSH, CMP, LIPID #### [facility] [address] [address] [address] Neo Mccall Cholesterol [Mass/Vol] 192 mg/dL Normal <=200 [facility] Comment on above: Performed By: #### T 7, TSH, CMP, LIPID #### [facility] [address] [address] [address] Neo Mccall Cholesterol in HDL [Mass/Vol] 48 mg/dL Normal 40-60 [facility] Comment on above: Performed By: #### T 7, TSH, CMP, LIPID #### [facility] [address] [address] [address] Neo Mccall Cholesterol in LDL [Mass/Vol] 102.2 mg/dL Normal [facility] Comment on above: Performed By: #### T 7, TSH, CMP, LIPID #### [facility] [address] [place], [place] [address] Dr. Neo Mccall Cholesterol.total/Ch olesterol in HDL [Mass ratio] 4.0 {ratio} Normal [facility] Comment on above: Performed By: #### T 7, TSH, CMP, LIPID #### [facility] [address] [address] [address] Neo Mccall HDL NORMAL > or = 60 mg/dl - LOW CARDIOVASCULAR RISK <40 mg/dl - HIGH CARDIOVASCULAR RISK Normal [facility] Comment on above: Performed By: #### T 7, TSH, CMP, LIPID #### [facility] [address] [address] [address] Neo Mccall LDL CALC NORMAL SEE BELOW Normal [facility] Comment on above: Result Comment: <100 mg/dl OPTIMAL 100 - 129 mg/dl NEAR OR ABOVE OPTIMAL 130 - 159 mg/dl BORDERLINE HIGH 160 - 189 mg/dl HIGH >190 mg/dl VERY HIGH Performed By: #### T 7, TSH, CMP, LIPID #### [facility] [address] [address] [address] Neo Mccall Triglyceride [Mass/Vol] 209 mg/dL Critically high <=150 [facility] Comment on above: Performed By: #### T 7, TSH, CMP, LIPID #### [facility] [address] [address] [address] Neo Mccall VLDL CALC 41.8 mg/dL Normal [facility] Comment on above: Performed By: #### T 7, TSH, CMP, LIPID #### [facility] [address] [address] [address] Neo Mccall PROF 14(COMP METB)on 022 Albumin [Mass/Vol] 4.2 g/dL Normal 3.4-5.0 [facility] Comment on above: Performed By: #### T 7, TSH, CMP, LIPID #### [facility] [address] [address] [address] Neo Mccall Albumin/Globulin [Mass ratio] 1.3 {ratio} Normal [facility] Comment on above: Performed By: #### T 7, TSH, CMP, LIPID #### [facility] [address] [address] [address] Neo Mccall ALP [Catalytic activity/Vol] 96 U/L Normal 46-116 [facility] Comment on above: Performed By: #### T 7, TSH, CMP, LIPID #### [facility] [address] [address] [address] Neo Mccall ALT [Catalytic activity/Vol] 34 U/L Normal 16-63 [facility] Comment on above: Performed By: #### T 7, TSH, CMP, LIPID #### [facility] [address] [address] [address] eNo Mccall Anion gap [Moles/Vol] 11.6 mmol/L Normal [facility] Comment on above: Performed By: #### T 7, TSH, CMP, LIPID #### [facility] [address] [address] [address] Neo Mccall AST [Catalytic activity/Vol] 18 U/L Normal 15-37 [facility] Comment on above: Performed By: #### T 7, TSH, CMP, LIPID #### [facility] [address] [place] [address] Dr. Neo Mccall Bilirubin [Mass/Vol] 0.6 mg/dL Normal 0.2-1.0 [facility] Comment on above: Performed By: #### T 7, TSH, CMP, LIPID #### [facility] [address] [place] [address] Dr. Neo Mccall Calcium [Mass/Vol] 9.3 mg/dL Normal 8.5-10.1 [facility] Comment on above: Performed By: #### T 7, TSH, CMP, LIPID #### [facility] [address] [place] [address] Dr. Neo Mccall Chloride [Moles/Vol] 107 mmol/L Normal 98-107 [facility] Comment on above: Performed By: #### T 7, TSH, CMP, LIPID #### [facility] [address] [place] [address] Dr. Neo Mccall CO2 [Moles/Vol] 30.8 mmol/L Normal 21.0-32.0 [facility] Comment on above: Performed By: #### T 7, TSH, CMP, LIPID #### [facility] [address] [place] [address] Dr. Neo Mccall Creatinine [Mass/Vol] 1.14 mg/dL Normal 0.70-1.30 [facility] Comment on above: Performed By: #### T 7, TSH, CMP, LIPID #### [facility] [address] [address] [address] Neo Mccall EGFR-AF KITTITIAN >60 Normal >=60 [facility] Comment on above: Performed By: #### T 7, TSH, CMP, LIPID #### [facility] [address] [address] [address] Neo cMcall EGFR-NON AF KITTITIAN >60 Normal >=60 [facility] Comment on above: Performed By: #### T 7, TSH, CMP, LIPID #### [facility] [address] [address] [address] Neo Mccall Globulin (S) [Mass/Vol] 3.2 g/dL Normal [facility] Comment on above: Performed By: #### T 7, TSH, CMP, LIPID #### [facility] [address] [address] [address] Neo Mccall Glucose [Mass/Vol] 99 mg/dL Normal 74-106 [facility] Comment on above: Performed By: #### T 7, TSH, CMP, LIPID #### [facility] [address] [address] [address] Neo Mccall Potassium [Moles/Vol] 3.4 mmol/L Critically low 3.5-5.1 [facility] Comment on above: Performed By: #### T 7, TSH, CMP, LIPID #### [facility] [address] [address] [address] Neo Mccall Protein [Mass/Vol] 7.4 g/dL Normal 6.4-8.2 [facility] Comment on above: Performed By: #### T 7, TSH, CMP, LIPID #### [facility] [address] [address] [address] Neo Mccall Sodium [Moles/Vol] 146 mmol/L Critically high 136-145 [facility] Comment on above: Performed By: #### T 7, TSH, CMP, LIPID #### [facility] [address] [address] [address] Neo Mccall Urea nitrogen [Mass/Vol] 17.0 mg/dL Normal 7.0-18.0 [facility] Comment on above: Performed By: #### T 7, TSH, CMP, LIPID #### [facility] [address] [address] [address] Neo Mccall Urea nitrogen/Creatinine [Mass ratio] 14.9 mg/mg Normal [facility] Comment on above: Performed By: #### T 7, TSH, CMP, LIPID #### [facility] [address] [address] [address] Neo Mccall TSHon 12-07-2021 TSH 1.906 uIU/mL Normal 0.358-3.740 [facility] Comment on above: Performed By: #### T 7, TSH, CMP, LIPID #### [facility] [address] [address] [address] Neo Mccall SARS-CoV-2 (COVID-19) RNA NA A+probe Ql (Resp)on 11-19-2021 SARS-CoV-2 (COVID-19) RNA TEGAN+probe Ql (Unsp spec) Positive [employer] Other Vital Signs Date Time Vital Sign Value Performing Clinician Faci lity 04-25-2023 14:15-0500 Body height 177.8 cm Yue Tenorio Other [employer] Other 04-25-2023 14:15-0500 Body mass index (BMI) [Ratio] 41.89 kg/m2 Yue Tenorio Other [employer] Other 04-25-2023 14:15-0500 Body temperature 97.7 [degF] Yue Tenorio Other [employer] Other 04-25-2023 14:15-0500 Body weight 132.45 kg Yue Tenorio Other [employer] Other 04-25-2023 14:15-0500 Diastolic blood pressure 84 mm[Hg] Yue Tenorio Other [employer] Other 04-25-2023 14:15-0500 Respiratory rate 18 /min Yue Tenorio Other [employer] Other 04-25-2023 14:15-0500 SaO2% (BldA) [Mass fraction] 96 % Yue Tenorio Other [employer] Other 04-25-2023 14:15-0500 Systolic blood pressure 150 mm[Hg] Yue Tenorio Other [employer] Other 04-04-2023 15:17-0500 Blood Pressure Location Haris Bling NationL [facility] [place] 04-04-2023 15:17-0500 Diastolic blood pressure 84 mm[Hg] Haris NILL [facility] [place] 04-04-2023 15:17-0500 Heart rate 70 /min Haris NILL [facility] [place] 04-04-2023 15:17-0500 Respiratory rate 16 /min Haris NILL [facility] [place] 04-04-2023 15:17-0500 Systolic blood pressure 120 mm[Hg] Hrais NILL [facility] [place] 03-04-2023 09:30-0400 Body height 177.8 cm John Islas Other [employer] Other 03-04-2023 09:30-0400 Body mass index (BMI) [Ratio] 44.19 kg/m2 John Islas Other [employer] Other 03-04-2023 09:30-0400 Body temperature 97 [degF] John Islas Other [employer] Other 03-04-2023 09:30-0400 Body weight 139.71 kg John Paganno Other [employer] Other 03-04-2023 09:30-0400 Diastolic blood pressure 94 mm[Hg] Juanemileeer Roshan Other [employer] Other 03-04-2023 09:30-0400 Respiratory rate 20 /min Juanfrantz Giraldodano Other [employer] Other 03-04-2023 09:30-0400 SaO2% (BldA) [Mass fraction] 98 % Juanfrantz Giraldodano Other [employer] Other 03-04-2023 09:30-0400 Systolic blood pressure 158 mm[Hg] Juanfratnz Giraldodano Other [employer] Other 11-19-2021 11:10-0400 Body height 177.8 cm Yue Trippmond Other [employer] Other 11-19-2021 11:10-0400 Body mass index (BMI) [Ratio] 37.3 kg/m2 Yue Coby Other [employer] Other 11-19-2021 11:10-0400 Body temperature 100 [degF] Yue Coby Other [employer] Other 11-19-2021 11:10-0400 Body weight 117.94 kg Yue Coby Other [employer] Other 11-19-2021 11:10-0400 Respiratory rate 18 /min Yue Coby Other [employer] Other 11-19-2021 11:10-0400 SaO2% (BldA) [Mass fraction] 97 % Yue Tenorio Other [employer] Other 04-10-2021 15:15-0500 Body height 168.91 cm Sree Olexa Other [employer] Other 04-10-2021 15:15-0500 Body mass index (BMI) [Ratio] 41.33 kg/m2 Sree Olexa Other [employer] Other 04-10-2021 15:15-0500 Body weight 117.94 kg Sree Olexa Other [employer] Other Encounters Encounter Date Encounter Type Care Provider Facility Start: 01-25-2024 End: 01-25-2024 Emergency department patient visit [facility] Start: 01-16-2024 End: 01-16-2024 ambulatory [facility] Start: 10-24-2023 End: 10-24-2023 ambulatory [facility] Start: 10-10-2023 ambulatory GLYNN GABRIEL [place] Start: 10-07-2023 ambulatory [facility] Start: 10-06-2023 End: 10-06-2023 ambulatory [facility] Start: 10-06-2023 End: 10-06-2023 ambulatory [facility] Start: 10-03-2023 End: 10-03-2023 ambulatory [facility] Start: 05-30-2023 End: 05-30-2023 ambulatory [facility] Start: 04-25-2023 End: 04-25-2023 ambulatory Yue Tenorio Other [employer] Other Start: 04-25-2023 Office outpatient visit 15 minutes Yue Coby [facility] Start: 04-18-2023 End: 04-18-2023 ambulatory YARELY MATTHEWS Not Available Start: 04-04-2023 End: 04-05-2023 ambulatory Haris LAWSON Facility:[facility] Start: 04-04-2023 End: 04-04-2023 Patient encounter procedure Haris R NILL [facility] [place] Start: 03-18-2023 End: 03-18-2023 ambulatory John Islas Facility:[facility] Start: 03-18-2023 End: 03-18-2023 ambulatory MD Michael Latham Work Phone: [facility] Work Phone: Start: 03-18-2023 End: 03-18-2023 Patient encounter procedure MD Michael Latham Work Phone: [facility] Work Phone: Start: 03-11-2023 ambulatory Haris LAWSON Facility:[facility] Start: 03-04-2023 End: 03-04-2023 ambulatory John Islas Other [employer] Other Start: 03-04-2023 Office outpatient visit 25 minutes John Islas [facility] Start: 01-17-2023 End: 01-17-2023 ambulatory John Paganno Other [employer] Other Start: 01-17-2023 Telephone encounter John ward [facility] Start: 01-01-2023 End: 01-01-2023 ambulatory John Islas Other [employer] Other Start: 01-01-2023 Telephone encounter John ward [facility] Start: 08-12-2022 End: 08-13-2022 ambulatory RODOLFOMIREILLE BOWSER Facility:[facility] Start: 05-08-2022 End: 08-08-[address] DOCTOR SALMON Facility:[facility] Start: 12-11-2021 Encounter for genera l adult medical examination without abnormal findings DR MICHAEL LATHAM . [facility] Start: 12-08-2021 End: 12-08-[address] MICHAEL LATHAM . Facility:[facility] Start: 12-07-2021 End: 12-08-2021 ambulatory CATA BARAJAS Facility:[facility] Start: 12-07-2021 End: 12-08-2021 Encounter for general adult medical examination without abnormal findings DR MICHAEL LATHAM . Facility:[facility] Start: 11-19-2021 End: 11-19-2021 ambulatory Yue Tenorio Other [employer] Other Start: 11-19-2021 Office outpatient visit 15 minutes Yue Tenorio [facility] Start: 11-14-[address] MICHAEL LATHAM . Facili ty:[facility] Start: 04-10-2021 End: 04-10-2021 ambulatory Sree Childs Other [employer] Other Start: 04-10-2021 Office outpatient visit 15 minutes Sree Childs [facility] [place] Start: 09-29-2020 End: 09-29-2020 ambulatory UNKNOWN PROVIDER Facility:[facility] Start: 07-06-2018 End: 07-07-2018 Patient encounter procedure DEFAULT PHYSICIAN Facility:[facility] Procedures Date Procedure Procedure Detail Performing Clinician Start: 12-07-2021 PSA screening CATA Vyas OES Comment on above: Performed By: #### P [facility] #### [facility] [address] [place] [address] Dr. Neo Mccall Start: 07-17-2020 Cystoscopy Haris COSTA Start: 09-30-2018 exicison skin lesions 1 Haris LAWSON Comment on above: neck, left flank and left inner thigh Arthrodesis of ankle Haris BARNHARTL Arthroscopy of shoulder Nehemias aekaren BARNHARTL History of surgical procedure on cervical spine Haris BARNHARTL Repair of umbilical hernia Isabella BARNHARTL Immunizations Immunization Date Immunization Notes Care Provider Fa cility 04-12-2021 SARS-CoV-2 (COVID-19 ) mRNA BNT-162b2 vax Haris BARNHARTL [facility] [place] 08-30-2020 SARS-CoV-2 (COVID-19 ) mRNA BNT-162b2 vax Haris BARNHARTL [facility] [place] 08-09-2020 SARS-CoV-2 (COVID-19 ) mRNA BNT-162b2 vax Haris BARNHARTL [facility] [place] 05-05-2020 SARS-CoV-2 (COVID-19 ) mRNA BNT-162b2 vax Haris LAWSON [facility] Comment on above: Result Comment: Pt d oes not know the dates NEGATED: Highlighted row has not occurred!04-04-2023 influenza virus vaccine, unspecified formulation aHris LAWSON [facility] [place] Payers Date Payer Category Payer Self-pay [id number] 1957 [facility] [id number] 1959 Unknown [id number] 1955 Unknown [id number] [id number] 47 1957 Unknown [id number] [id number] 32 1957 Unknown [id number] 2..840.1.446658.3.579.2.5 93 1957 Unknown [id number] 2.16.840.1.909201.3.579.2.5 93 1957 Unknown [id number] 2.16.840.1.934279.3.579.2.5 93 1957 Unknown [id number] 2.16.840.1.599558.3.579.2.5 93 1957 Unknown [id number] 2.16.840.1.741115.3.579.2.5 93 1957 Unknown [id number] 2.16.840.1.097754.3.579.2.5 93 1957 Unknown [id number] 2.16.840.1.010293.3.579.2.7 27 1957 Unknown [id number] 2.16.840.1.583764.3.579.2.1 259 1957 Unknown [id number] 2.16.840.1.386067.3.579.2.1 73 Medicare Medicare-OP No Part B [id number] Private Health Insurance [employer] [id number] Unknown Unknown [id number] [id number] 31 Social History Date Type Detail Facility Unknown if ever smoked [employer] Other [facility] Start: 03-23-2021 End: 04-04-2023 Tobacco smoking status NHIS Never smoked tobacco (finding) [facility] Start: 1955 Sex Assigned At Male F [facility] Tobacco smoking status Never Gener [facility] [place] Functional Status Date Assessment Result Facility 04-04-2023 Functional Status N/A [facility] [place] Clinical Notes 04-10-2021 to 01-16-2024 Note Date & Type Note Facility 01-16-2024 Note Lipid abnormalities are stable Continue atorvastatin 40 mg a day Monitor lipids and liver function annually-no concerns currently [facility] 01-16-2024 Note Hypertension remains elevated and uncontrolled [...] or orthopneic he is to call office [facility] 01-16-2024 Note Follow-up with CT heath dylan [...] majority of the time he voiced understanding [facility] 01-16-2024 Note [facility]TP CARDIOLOGY PROGR ESS NOTE [...] rupture Follow-up wi (more content not included)... [facility] 01-16-2024 Note Pt here for a three month follow up. Pt has HTN, and HLD. Pt denies chest pain, sob, dizziness. Review of Systems Constitutional: Weight loss: 37# since November 2022. Cardiovascular: Positive for dyspnea on exertion (improving) and palpitations. Musculoskeletal: Positive for arthritis, back pain and joint pain. All other systems reviewed and are negative. [facility] 10-24-2023 Note Patient was seen for new [...] connective tissue disorder. Will await those results. [facility] 10-10-2023 Note [facility]TP CARDIOLOGY PROGR ESS NOTE [...] split. tiZANidine (Zanaflex) 4 mg tablet Amadeo Ellipta 100-62.5-25 mcg blister with device INHALE [...] Strict return precau (more content not included)... 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 tiZANidine (Zanaflex) 4 mg tablet Trelegy Ellipta 100-62.5-25 mcg blister with device [...] Judgment normal. Relevant Results: Echocardiograms reviewed from [facility] 2022 and 2023.- reviewed. CT of the chest 2022- reviewed. Assessment/Plan Aortic Dilatation Aortic Aneurysm without Rupture HTN HLD Hypothyroidism GERD Plan: -Patient seen and evaluated by Cardiothoracic Team. Dr. Goins personally examined the patient and reviewed Echocardiogram, CTA of the Chest, and Other Diagnostic Testing. Findings di (more content not included)... [facility] 05-30-2023 Note F/U with CT surgery in August as scheduled [facility] 05-30-2023 Note Hypertension is stab le 138/88 Continue clonidine, irbesartan-hydrochlorothiazide [facility] 05-30-2023 Note [facility] 05-30-2023 Note Patient here for 6 [...] All other systems reviewed and are negative. [facility] 05-30-2023 Note [facility]TP CARDIOLOGY PROGR ESS NOTE [...] split. tiZANidine (Zanaflex) 4 mg tablet Amadeo Ellipta 100-62.5-25 mcg blister with device INHALE [...] in August as scheduled RTC 6 months [facility] 04-25-2023 Evaluation note Encounter Date Diagnosis Assessment [...] no improvement in 2 to 3 days. [employer] Other 12-01-2023 NoteChief Complaint consultation for GERD [...] on for years, recent work up by Account Support Manager with possible COPD, also placed on Flonase [...] 1 puff(s), Inhalation, Da (more content not included)...[facility] Comment: Electronically Signed By: LULU JEFFERSON, Haris Dumont\Date and Time Signed: 04/04/23 16:10 [id number] Evaluation note* Encounter Date Diagnosis Assessment Notes Treatment Notes Treatment Clinical Notes Feb, Restrictive lung disease (ICD-10 - J98.4) Feb, Allergic rhinitis (ICD-10 - J30.9) Feb, Cough (ICD-10 - R05.9) [employer] Other 07-18-2022 Evaluation note* Encounter Date Diagnosis [...] Patient care instructions given in writing by [facility] At Home document. [employer] Other 12-07-2021 Evaluation note* Encounter Date Diagnosis [...] the injection well with no adverse reaction. [employer] Other Evaluation + Plan note No data available for this section [facility] [place] Evaluation noteNo InformationNort [employer] Other Evaluation noteNo assessment information available [facility] Work Phone: History general Narrative - Reported* Type Description Date Medical History hyperlipidemia Medical History hypertension Surgical History neck fusion Surgical History tonsilectomy Surgical History umbilical hernia repair Surgical History vasectomy Hospitalization History see above [employer] Other Hiscron general Narrative - Reported* Type Description Date Medical History hyperlipidemia Medical History hypertension Medical History COPD Medical History pulmonary hypertension Surgical History neck fusion Surgical History tonsilectomy Surgical History umbilical hernia repair Surgical History vasectomy Surgical History ankle fusion lt. Surgical History shoulder Hospitalization History see above [employer] Other History general Narrative - Reported* Type Description Date Medical History hyperlipidemia Medical History hypertension Medical History COPD Medical History pulmonary hypertension Medical History allergic rhinitis Medical History restrictive lung disease Surgical History neck fusion Surgical History tonsilectomy Surgical History umbilical hernia repair Surgical History vasectomy Surgical History ankle fusion lt. Surgical History shoulder Hospitalization History see above [employer] Other Hospital Discharge instructions No data available for this section [facility] [place] Progress note No data available for this section [facility] [place] Reason for referral (narrative)* Reason Appt: PENDING Refe rral for cough; TM irritation by hairs; globus sensation Diagnosis 1 Cough (R05.9) Referral Organization [facility] Referring Provider First Name Alphonso de leon Referring Provider Last Name Roshan Referring Provider Specialty Pulmonary D iseases Referred Organization [facility] Referred Provider Yarely Matthews Referred Address [address] [place] [id number] Referred Provider Specialty Ear, Nose an d Throat Referral Priority Routine [employer] Other Summary Purpose Family History No Family [...] and content) DATE CREATED AUTHOR 07/08/2018 [facility] DATE CREATED AUTHOR AUTHOR'S ORGANIZ ATION 10/02/2020 [facility] DATE CREATED AUTHOR AUTHOR'S ORGANIZ ATION 08/18/2022 [facility] DATE CREATED AUTHOR AUTHOR'S ORGANIZ ATION 04/07/2023 [facility] DATE CREATED AUTHOR AUTHOR'S ORGANIZ ATION 04/20/2023 [facility] DATE CREATED AUTHOR AUTHOR'S ORGANIZ ATION 06/13/2023 [facility] DATE CREATED AUTHOR AUTHOR'S ORGANIZ ATION 01/18/2024 [facility] DATE CREATED AUTHOR AUTHOR'S ORGANIZ ATION 01/27/2024 [facility] REASON FOR VISIT (unrecogniz ed section and [...] BE BASED ON THE PRIMARY CLINICAL RECORDS. [employer] provides no warranty or guarantee of the accuracy or completeness of information in this document.
--- NOTE | 2024-02-03 12:00 | MR_ITS ---
The [address] [address] Patient Name: YI VALVERDE MRN: [id number] date: 1955 Sex: M Assigned Patient Location: CARD Current Patient Location: CARD Accession/Order Number: [id number] Exam Date: 02/03/2024 12:40 Report Date: 02/03/2024 15:47 At the request of: MICHAEL BLANCO Procedure: MR head/brain wo con EXAM: MR head/brain wo con HISTORY: Seizure,R56.9; Concussion, S06.0X9A COMPARISON: CT brain 01/26/2024. TECHNIQUE: MRI of the brain was performed without contrast. FINDINGS: There is no restricted diffusion to suggest acute infarct. There is no midline shift, mass effect, or abnormal extraaxial fluid collections. There is mild generalized cerebral volume loss. There are nonspecific scattered foci of T2/FLAIR signal abnormality in the subcortical and periventricular white matter, likely reflect chronic microvascular ischemic changes. The major intracranial flow voids are visualized. The cerebellar tonsils are normal in position. The orbits are unremarkable. The paranasal sinuses show no air-fluid level. There is a small mucous retention cyst within left maxillary sinus. The mastoid air cells are clear. The calvarium and extracranial soft tissues are unremarkable. MR/MR head/brain wo con IMPRESSION: No acute intracranial abnormality. Mild chronic microvascular ischemic and involutional changes Electronically authenticated by: ROBERT LAKE Date: 02/03/2024 15:47
== END 2024-02-03 09:15 | disposition home or self-care (01) ==
LOC: CARD 09:16
PROVIDERS: PCP Family Medicine; Visit Provider Family Medicine
DX: R56.9 Unspecified convulsions (principal); S06.0X9A Concussion with loss of consciousness of unspecified duration, initial encounter
CPT/HCPCS: 70551; 95816

== ENCOUNTER 2024-04-09 12:44 | Outpatient (OUT) | payer BC, SELFPAY ==
[2024-04-10 13:08] LABS: Sjogren's Anti-SS-A <0.2 AI (0.0-0.9); Sjogren's Anti-SS-B <0.2 AI (0.0-0.9)
== END 2024-04-09 12:45 | disposition home or self-care (01) ==
LOC: LAB 12:45
PROVIDERS: PCP Family Medicine; Visit Provider Family Medicine
DX: R53.83 Other fatigue (principal)
CPT/HCPCS: 36415; 86235

== ENCOUNTER 2024-04-27 09:23 | Outpatient (OUT) | payer BC, SELFPAY ==
--- OUTSIDE RECORDS SUMMARY | 2024-04-27 09:29 | XMS_ITS | CCD ---
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 Name Role Phone PHYSICIAN, DEFAULT Admitting Unavailable PHYSICIAN, DEFAULT Attending Unavailable PROVIDER, UNKNOWN Attending Unavailable PROVIDER, UNKNOWN Admitting Unavailable Sree Childs Unavailable Yue Tenorio Unavailable CATA BARAJAS Admitting Unavailable CATA BARAJAS Attending Unavailable HOY ., DR RODRIGUEZ Primary [...] Unavailable HOY ., DR RODRIGUEZ Consulting Unavailable Apolinar Islas Unavailable MD Michael Latham Primary Care Provider MD Apolinar Islas Attending Provider Michael Latham Primary Care Physician Haris LAWSON Attending Unavailable Apolinar Islas Attending Unavaila ble Apolinar Islas Admitting Unavaila Michael Garcia Primary Care Unavailable HERIBERTO GOINS Referring Unavailable HERIBERTO GOINS Attending Unavailable GLYNN GABRIEL Attending Unavailable CATA BARAJAS Attending Unavailable CATA BARAJAS Attending Unavailable HERIBERTO GOINS Referring Unavailable HERIBERTO GOINS Referring Unavailable BRISIEDA HERIBERTO Referring Unavailable CATA FROST Attending Unavailable MICHAEL LATHAM Primary Care Unavailable Michael Latham MD Primary Care Provider [phone] APOLINAR STONE Attending Unavailable YARELY MATTHEWS Attending Unavailable MICHAEL LATHAM Referring Unavailable Allergies Allergy Classification Reported Allergen(s) Allergy Type Date of Onset Reaction(s) Facility (4 sources) Adhesive agent; Translations: [ADHESIVE] Drug allergy (disorder) 1 Redness of Skin [facility] Repository (3 sources) Amino Acids; Translations: [lisinopril] Drug Allergy [facility] Repository (2 sources) Adhesive bandage; Translations: [Adhesive Bandage] Drug allergy Eruption of skin (disorder) [facility] (1 source) Lisinopril; Translations: [lisinopril] Drug Allergy Cough (finding) [facility] (1 source) Doxazosin; Translations: [Cardura] Drug Allergy [facility] Repository (1 source) Adhesive agent Drug allergy (disorder) 3 [facility] Repository (2 sources) Lisinopril Propensity to adverse reactions 3 Cough [facility] Work Phone: (2 sources) Wound Dressing Adhesive Drug Intolerance 2 [facility] Medications Current Medications Medication Drug Class(es) Dates Sig (Normalized) Sig (Original) acetaminophen 325 mg / oxyCODONE hydrochloride 5 mg oral tablet (1 source) Opioid Agonist Start: 01-06-2020 take 1 tablet by mouth every six hours Oxycodone-Acetami nophen Active 1 TAB PO Q6H January 05, 2020 11:00pm sensor 200 actuat albuterol 0.09 mg/actuat dry powder inhaler (3 sources) beta2-Adrenergic Agonist Start: 03-19-2023 take 2 puff(s) by inhalation every six hours albuterol (ProAir Digihaler) 90 mcg/act breath-activated inhaler (w/ sensor) Inhale 2 puffs every 6 (six) hours if needed 03/19/2023 Active Start: 03-19-2023 take 2 puff(s) by in halation four times daily Albuterol (Eqv-Ventolin HFA) 2 puff(s), Inhalation, QID Shortness of breath or wheezing, Refill(s) 0 Start Date: 03/19/23 Status: Ordered amLODIPine 10 mg oral tablet (7 sources) Dihydropyridine Calcium Channel Terrell Start: 04-04-2023 [...] aspirin 81 mg delayed release oral tablet (8 sources) Platelet Aggregation Inhibitor, Nonsteroidal Anti-inflammatory Drug Start: take 1 tablet by mouth once daily aspirin 81 mg Oral EC Tab 81 mg = 1 tab(s), Oral, Daily, Refills(s) 0 Start Date: 03/19/23 Status: Ordered aspirin 81 MG ch ewable tablet Chew 1 tablet in the morning. Active atorvastatin 80 mg oral tablet (7 sources) HMG-CoA Reductase Inhibitor Start: 02-22-2021 take 1 tablet by mouth once daily atorvastatin 80 mg Tab 80 mg = 1 tab(s), Oral, Daily, Refills(s) 0 Start Date: 02/22/21 Status: Ordered take 2 tablets by mouth in the m orning atorvastatin (Lipitor) 40 MG tablet Take 80 mg by mouth in the morning. Active take 1 tablet by maribel th every twenty-four hours Atorvastatin Calcium 40 MG 1 tablet Oral ly Once a day Active 24 hr buPROPion hydrochloride 300 mg extended release oral tablet (7 sources) Aminoketone Start: 03-19-2023 take 1 tablet by mouth once daily buPROPion XL (Wellbutrin XL) 300 MG 24 hr tablet Take 300 mg by mouth 1 (one) time each day at the same time 03/19/2023 Active take 1 tablet by maribel th every twenty-four hours buPROPion HCl ER (SR) 150 MG 1 tablet in the morning Orally Once a day Active carvedilol 25 mg oral tablet (7 sources) alpha-Adrenergic Terrell, beta-Adrenergic Terrell Start: 10-22-2022 take 1 tablet by mouth twice daily carvedilol 25 mg Tab 25 mg = 1 tab(s), Oral, BID, Refills(s) 0 Start Date: 03/19/23 Status: Ordered cloNIDine hydrochloride 0.3 mg oral tablet (10 sources) Central alpha-2 Adrenergic Agonist Start: 03-10-2020 take 1 tablet by mouth in the morning cloNIDine (Catapres) 0.3 MG tablet Take 0.3 mg by mouth in the morning and 0.3 mg in the evening. 1 tablet AM, 2 tablets PM. 02/28/2023 Active Start: 01-06-2020 take 0.1 mg by mouth [...] a day for 30 days Dec, Active 30 actuat fluticasone furoate 0.1 mg/actuat / umeclidinium 0.0625 mg/actuat / vilanterol 0.025 mg/actuat dry powder inhaler (2 sources) Anticholinergic, Corticosteroid, beta2-Adrenergic Agonist Start: 11-27-2022 take 1 puff(s) by inhalation in the morning Dzmzspetruc-Sqseccsyy-Atjtzk (Trelegy Ellipta) 100-62.5-25 MCG/ACT aerosol powder Inhale 1 puff in the morning. 11/27/2022 Active fluticasone / vilanterol (3 sources) Corticosteroid, beta2-Adrenergic Agonist Start: 02-22-2021 take 1 puff(s) by inhalation once daily Breo Ellipta 100 mcg-25 mcg inhalation powder 1 puff(s), Inhalation, Daily, Refill(s) 2, 30 dose unit Start Date: 02/22/21 Status: Ordered take 1 puff(s) by in halation once daily Fluticasone Furoate-Vilanterol (Breo Ell ipta) 100-25 MCG/ACT aerosol powder Inhale 1 puff 1 (one) time each day Active hydroCHLOROthiazide 12.5 mg / irbesartan 150 mg oral tablet (7 sources) Thiazide Diuretic, Angiotensin 2 Receptor Terrell Start: 03-10-2020 take 1 tablet by mouth twice daily hydrochlorothiazide-irbesartan 12.5 mg-150 mg Tab 1 tab(s), Oral, BID, Refill(s) 0 Start Date: 03/10/20 Status: Ordered take 1 tablet by maribel th in the morning irbesartan-hydroCHLOROthiazide (Avalide) 150-12.5 MG tablet Take 1 tablet by mouth in the morning and 1 tablet before bedtime. Active take 1 tablet by maribel th every twenty-four hours Irbesartan-hydroCHLOROthiazide 150-12.5 MG 1 tablet Orally Once a day Active irbesartan 150 mg oral tablet (2 sources) Angiotensin 2 Receptor Terrell take 1 tablet by mouth every twenty-four hours Irbesartan 150 MG 1 tablet Orally Once a day Active Irbesartan-Hydrochlor othiazide (1 source) Start: 020 take 1 tablet by mouth once daily at bedtime Irbesartan-Hydrochlo rothiazide Active 1 TAB PO Daily at bedtime January 05, 2020 11:00pm levothyroxine sodium 0.075 mg oral tablet (3 sources) l-Thyroxine Start: take 1 tablet by mouth before mealtime levothyroxine (Synthroid, Levoxyl) 75 MCG tablet Take 75 mcg by mouth in the morning. Take before meals. 03/19/2023 Active Start: 03-19-2023 take 1 tablet by maribel once daily levothyroxine 75 mcg (0.075 mg) Tab 75 mcg = 1 tab(s), Oral, Daily, Refills(s) 0 Start Date: 03/19/23 Status: Ordered meloxicam 15 mg oral tablet (1 source) Nonsteroidal Anti-inflammatory Drug Start: 01-06-2020 take 15 mg by mouth once daily in the morning Meloxicam Active 15 MG PO Every morning January 05, 2020 11:00pm metoclopramide 10 mg oral tablet (3 sources) Dopamine-2 Receptor Antagonist Start: 04-04-2023 take 1 tablet by mouth three times daily Reglan 10 mg Tab 10 mg = 1 tab(s), Oral, TID, Refills(s) 0 Start Date: 04/04/23 Status: Ordered metoprolol tartrate 100 mg oral tablet (2 sources) beta-Adrenergic Terrell take 1 capsule by mouth once daily Metoprolol Succinate 100 MG 1 capsule Orally Once a day Active mirtazapine 30 mg oral tablet (7 sources) Start: 03-19-2023 take 1 tablet by mouth at bedtime mirtazapine (Remeron) 30 MG tablet Take 30 mg by mouth at bedtime 03/19/2023 Active Multi Vitamin+ (1 source) Start: 01-05-2020 Multi Vitamin+ Refill(s) 0 Start Date: 01/05/20 Status: Ordered Multiple Vitamins-Minerals (Multivitamin Men) tablet (2 sources) take 1 tablet by mouth in the morning Multiple Vitamins-Minerals (Multivitamin Men) tablet Take 1 tablet by mouth in the morning. Active Multivitamin preparation (4 sources) Multivitamin Active Multivitamin-Disk Operator als-Lutein (Multivitamin 50 Plus) Tablet (1 source) Start: 01-06-2020 Multivitamin-[place] als-Lutein (Multivitamin 50 Plus) Tablet Active 1 TAB PO Daily at bedtime January 05, 2020 11:00pm Naproxen (2 sources) Nonsteroidal Anti-inflammatory Drug Naproxen Active [facility] [facility] 1-Fqo-Ewo-Fish Oil (Fish Oil) 1,200 (144-216) mg Capsule (1 source) Start: 01-06-2020 take 1 capsule by mouth once daily at bedtime [facility] 0-Rct-Dqt-Fish Oil (Fish Oil) 1,200 (144-216) mg Capsule Active 1200 CAP PO Daily at bedtime January 05, 2020 11:00pm omeprazole 40 mg delayed release oral capsule (4 sources) Proton Pump Inhibitor take 1 capsule by mouth once daily Omeprazole 40 MG 1 capsule 30 minutes before morning meal Orally Once a day Active oxyCODONE hydrochloride 5 mg oral capsule (1 source) Opioid Agonist Start: 01-07-2020 take 5 mg by mouth every eight hours Oxycodone Active 5 MG PO Q8H 10 3 January 07, 2020 pantoprazole 40 mg delayed release oral tablet (3 sources) Proton Pump Inhibitor Start: 04-04-2023 take 1 tablet by mouth once daily Pantoprazole [address] Tab 40 mg = 1 tab(s), Oral, Daily, Refills(s) 0 Start Date: 04/04/23 Status: Ordered Probiotic (4 sources) Probiotic Active simvastatin 40 mg oral tablet (3 sources) HMG-CoA Reductase Inhibitor Start: 01-06-2020 take 40 mg by mouth once daily at bedtime Simvastatin Active 40 MG PO Daily at bedtime January 05, 2020 11:00pm spironolactone 25 mg oral tablet (2 sources) Aldosterone Antagonist Spironolactone 25 MG 1 tablet Orally Active tamsulosin hydrochloride 0.4 mg oral capsule (1 source) alpha-Adrenergic Terrell Start: 01-06-2020 take 0.4 mg by mouth once daily in the morning Tamsulosin Active 0.4 MG PO Every morning January 05, 2020 11:00pm Testosterone (4 sources) Androgen Testosterone Active tiZANidine 4 mg oral tablet (3 sources) Central alpha-2 Adrenergic Agonist Start: 11-30-2022 take 2 tablets by mouth at bedtime tiZANidine 4 mg Tab 8 mg = 2 tab(s), Oral, Bedtime, Refills(s) 0 Start Date: 03/19/23 Status: Ordered Trelegy Ellipta 200 mcg-62.5 mcg-25 mcg/inh inhalation powder (1 source) Start: 03-19-2023 take 1 puff(s) by inhalation once daily [...] Episodic/Chronic Aortic; peripheral; and visceral artery aneurysms (7 sources) Aneurysm of ascending aorta; Translations: [Aortic ectasia, unspecified site] Onset: 07-25-2022 03-19-2023 Chronic Cardiac dysrhythmias (1 source) Palpitations; Translations: [Palpitations] 03-23-2021 Episodic Chronic obstructive pulmonary disease and bronchiectasis (7 sources) Chronic obstructive lung disease; Translations: [Chronic obstructive pulmonary disease, unspecified] Onset: 04-15-2023 03-19-2023 Chronic Conduction disorders (5 sources) Right bundle branch block; Translations: [Unspecified right bundle-branch block] Onset: 04-15-2023 03-19-2023 Chronic Diabetes mellitus without complication (3 sources) Diabetes mellitus; Translations: [Type 2 diabetes mellitus without complications] Onset: 04-15-2023 03-19-2023 Chronic Disorders of lipid metabolism (9 sources) Mixed hyperlipidemia; Translations: [Mixed hyperlipidemia] Onset: 12-07-2021 Chronic Epilepsy; convulsions (3 sources) Unspecified convulsions; Translations: [Seizure] Onset: 01-25-2024 02-19-2024 Episodic Esophageal disorders (4 sources) Gastro-esophageal reflux disease without esophagitis; Translations: [Laryngopharyngeal reflux] Onset: 04-18-2023 Chronic Essential hypertension (14 sources) Essential (primary) hypertension; Translations: [Essential hypertension] Onset: 02-11-2020 Resolved: 04-15-2023 Chronic Hyperplasia of prostate (3 sources) Benign prostatic hypertrophy with outflow obstruction; Translations: [Benign prostatic hyperplasia with lower urinary tract symptoms] Onset: 04-15-2023 07-17-2020 Chronic Mood disorders (3 sources) Depressive disorder; Translations: [Depression] Onset: 04-15-2023 03-19-2023 Chronic Osteoarthritis (14 sources) Arthritis of right glenohumeral joint; Translations: [Primary osteoarthritis, right shoulder] Onset: 04-10-2021 Resolved: 04-10-2021 Chronic Other connective tissue disease (6 sources) Supraspinatus tear; Translations: [Unspecified rotator cuff tear or rupture of right shoulder, not specified as traumatic] Episodic Other injuries and conditions due to external causes (1 source) Unspecified multiple injuries, initial encounter; Translations: [Unspecified multiple injuries, initial encounter] Onset: 01-25-2024 Episodic Other lower respiratory disease (1 source) Other disorders of lung Episodic Other nutritional; endocrine; and metabolic disorders (4 sources) Body mass index 40+ - severely obese; Translations: [Body mass index (BMI) 45.0-49.9, adult] Onset: 04-04-2023 Chronic Other nutritional; endocrine; and metabolic disorders (1 source) Morbid obesity 03-19-2023 Chronic Other screening for suspected conditions (not mental disorders or infectious disease) (5 sources) Standard chest X-ray abnormal; Translations: [Abnormal findings on diagnostic imaging of other specified body structures] 03-10-2020 Chronic Other upper respiratory disease (7 sources) Allergic rhinitis; Translations: [Allergic rhinitis, unspecified] Onset: 04-15-2023 03-19-2023 Chronic Other upper respiratory disease (1 source) Allergic rhinitis, unspecified Chronic Other upper respiratory infections (1 source) Acute upper respiratory infection, unspecified Episodic Spondylosis; intervertebral disc disorders; other back problems (3 sources) Cervical disc disorder; Translations: [Cervical disc disorder, unspecified, unspecified cervical region] Onset: 04-15-2023 03-19-2023 Chronic Thyroid disorders (2 sources) Hypothyroidism, [...] Classification Problem Date Documented Da te Episodic/Chronic Calculus of urinary tract (5 sources) Kidney stone; Translations: [History of calculus of kidney] Onset: 02-11-2020 Resolved: 04-15-2023 01-05-2020 Episodic Genitourinary symptoms and ill-defined conditions (3 sources) Nocturia; Translations: [Nocturia] Onset: 04-15-2023 01-05-2020 Episodic Neoplasms of unspecified nature or uncertain behavior (3 sources) Neoplasm of uncertain behavior of skin; Translations: [Neoplasm of uncertain behavior of skin] Onset: 04-15-2023 09-23-2018 Episodic Other and unspecified benign neoplasm (3 sources) Benign neoplasm of bladder; Translations: [Benign neoplasm of bladder] Onset: 04-15-2023 02-22-2021 Episodic Other connective tissue disease (1 source) Unspecified rotator cuff tear or rupture of right shoulder, not specified as traumatic Onset: 04-10-2021 Resolved: 04-10-2021 Episodic Other lower respiratory disease (5 sources) Chronic cough; Translations: [Chronic cough] Onset: 04-04-2023 Episodic Other non-traumatic joint disorders (1 source) Pain in right shoulder Onset: 04-10-2021 Resolved: 04-10-2021 Episodic Other nutritional; endocrine; and metabolic disorders (2 sources) Obesity; Translations: [Obesity, unspecified] Onset: 02-11-2020 Resolved: 04-15-2023 04-15-2023 Chronic Other screening for suspected conditions (not mental disorders or infectious disease) (5 sources) Encounter for screening for malignant neoplasm of rectum; Translations: [Encounter for screening for malignant neoplasm of prostate] Onset: 12-08-2021 Episodic Other skin disorders (3 sources) Multiple skin tags; Translations: [Other hypertrophic disorders of the skin] Onset: 04-15-2023 Resolved: 04-15-2023 09-23-2018 Episodic Other skin disorders (3 sources) Senile hyperkeratosis; Translations: [Actinic keratosis] Onset: 04-15-2023 10-07-2018 Episodic Unclassified (1 source) Cough R05.9 Unclassified [...] 01-25-2024 Abs. Basophil 0.08 k/uL Normal 0.00-0.20 [facility] Comment on above: Performed By: #### C OLIVIA CASTILLO, TROPI #### [address] [place] [address] [employer] Operator: Crescencio Lal MD Abs.Imm.Granulocyte 0.03 k/uL Normal 0.00-0.30 [facility] Comment on above: Performed By: #### C OLIVIA CASTILLO, TROPI #### [address] [place] [address] [employer] Operator: Crescencio Lal MD Abs.Neutrophil (Seg) 5.34 k/uL Normal 1.50-8.10 [facility] Comment on above: Performed By: #### C OLIVIA CASTILLO, TROPI #### [address] [place], [place] [id number] [employer] Operator: Crescencio Lal MD Basophils/100 WBC (Bld) 1 % Normal 0-2 [facility] Comment on above: Performed By: #### C DP, CP, TROPI #### [address] [place] [id number] [employer] Operator: Crescencio Lal MD Eosinophils (Bld) [#/Vol] 0.28 10*3/uL Normal 0.00-0.44 [facility] Comment on above: Performed By: #### C DP, CP, TROPI #### [address] [place] [id number] [employer] Operator: Crescencio Lal MD Eosinophils/100 WBC (Bld) 4 % Normal 1-4 [facility] Comment on above: Performed By: #### C DP, CP, TROPI #### [address] [place] [id number] [employer] Operator: Crescencio Lal MD Erythrocyte distribution width (RBC) [Ratio] 12.7 % Normal 11.8-14.4 [facility] Comment on above: Performed By: #### C DP, CP, TROPI #### [address] [place] [id number] [employer] Operator: Crescencio Lal MD Hematocrit (Bld) [Volume fraction] 36.3 % Low 40.7-50.3 [facility] Comment on above: Performed By: #### C DP, CP, TROPI #### [address] [place] [id number] [employer] Operator: Crescencio Lal MD Hemoglobin (Bld) [Mass/Vol] 12.8 g/dL Low 13.0-17.0 [facility] Comment on above: Performed By: #### C DP, CP, TROPI #### [address] [place] [facility] [employer] Operator: Crescencio Lal MD Immature granulocytes/100 WBC (Bld) 0 % Normal 0 [facility] Comment on above: Performed By: #### C ANNA CP, TROPI #### [facility] [address] [place], [facility]83 [employer] Operator: Crescencio Lal MD Lymphocytes (Bld) [#/Vol] 1.45 10*3/uL Normal 1.10-3.70 [facility] Comment on above: Performed By: #### C ANNA, CP, TROPI #### [address] [place], [place] [address] [employer] Operator: Crescencio Lal MD Lymphocytes/100 WBC (Bld) 18 % Low 24-43 [facility] Comment on above: Performed By: #### C ANNA CP, TROPI #### [address] [place], [place] [address] [employer] Operator: Crescencio Lal MD MCH (RBC) [Entitic mass] 32.7 pg Normal 25.2-33.5 [facility] Comment on above: Performed By: #### C OLIVIA CASTILLO, TROPI #### [address] [place], [facility]83 [employer] Operator: Crescencio Lal MD MCHC (RBC) [Mass/Vol] 35.3 g/dL High 28.4-34.8 [facility] Comment on above: Performed By: #### C ANNA CP, TROPI #### [address] [place], [facility]83 [employer] Operator: Crescencio Lal MD MCV (RBC) [Entitic vol] 92.6 fL Normal 82.6-102.9 [facility] Comment on above: Performed By: #### C ANNA, CP, TROPI #### [address] [place], [place] [id number] [employer] Operator: Crescencio Lal MD Monocytes (Bld) [#/Vol] 0.81 10*3/uL Normal 0.10-1.20 [facility] Comment on above: Performed By: #### C DP, CP, TROPI #### [facility] [address] [place] [address] [employer] Operator: Crescencio Lal MD Monocytes/100 WBC (Bld) 10 % Normal 3-12 [facility] Comment on above: Performed By: #### C DP, CP, TROPI #### [facility] [address] [place] [address] [employer] Operator: Crescencio Lal MD Neutrophil (Seg) 67 % High 36-65 [facility] Comment on above: Performed By: #### C DP CP, TROPI #### [facility] [address] [place], [facility]83 [employer] Operator: Crescencio Lal MD NRBC Automated 0.0 per 100 WBC Normal 0.0 [facility] Comment on above: Performed By: #### C ANNA CP, TROPI #### [address] [place] [address] [employer] Operator: Crescencio Lal MD Platelet mean volume (Bld) [Entitic vol] 9.5 fL Normal 8.1-13.5 [facility] Comment on above: Performed By: #### C DP CP, TROPI #### [facility] [address] [place] [address] [employer] Operator: Crescencio Lal MD Platelets (Bld) [#/Vol] 368 10*3/uL Normal 138-453 [facility] Comment on above: Performed By: #### C DP, CP, TROPI #### [facility] [address] [place], [place] [id number] [employer] Operator: Crescencio Lal MD RBC (Bld) [#/Vol] 3.92 10*6/uL Low 4.21-5.77 [facility] Comment on above: Performed By: #### C OLIVIA CASTILLO, TROPI #### [facility] [address] [place] [id number] [employer] Operator: Crescencio Lal MD WBC (Bld) [#/Vol] 8.0 10*3/uL Normal 3.5-11.3 [facility] Comment on above: Performed By: #### C OLIVIA CASTILLO, TROPI #### [facility] [address] [place] [address] [employer] Operator: Crescencio Lal MD CT HEAD WO CONTRASTon 2023 CT HEAD WO CONTRAST ADDENDUM: Findings were communicated to Dr. Cata Frost by the CORE team on 01/25/2024 at [...] MD 01/25/24 Edited Result - FINAL Normal [facility] CTA HEAD NECK W CONTRASTon [...] Yuri Samuels MD 01/25/24 Final result Normal [facility] Comp Metabolic Profon 2023 Anion gap [Moles/Vol] 13 mmol/L Normal 01-18 [facility] Comment on above: Performed By: #### U PRANAV VARGAS UAX #### [facility] [address] [place] [address] [employer] Operator: Crescencio Lal MD Chloride [Moles/Vol] 104 mmol/L Normal 98-107 [facility] Comment on above: Performed By: #### U MICALuz, PRANAV, UAX #### [facility] [address] [place] [address] [employer] Operator: Crescencio Lal MD Sodium [Moles/Vol] 141 mmol/L Normal 136-145 [facility] Comment on above: Performed By: #### U MICAO, PRANAV, UAX #### [facility] [address] [place], [place] [id number] [employer] Operator: Crescencio Lal MD Potassium [Moles/Vol] 3.8 mmol/L Normal 3.7-5.3 [facility] Comment on above: Performed By: #### U SAM PRANAV, UAX #### [address] [place] [address] [employer] Operator: Crescencio Lal MD Albumin [Mass/Vol] 4.0 g/dL Normal 3.5-5.2 [facility] Comment on above: Performed By: #### U SAM PRANAV, UAX #### [address] [place] [address] [employer] Operator: Crescencio Lal MD Albumin/Glob Ratio 1.8 Normal 1.0-2.5 [facility] Comment on above: Performed By: #### U SAM PRANAV, UAX #### [facility] [address] [place] [address] [employer] Operator: Crescencio Lal MD Alkaline Phos 72 U/L Normal 40-129 [facility] [facility] Comment on above: Performed By: #### U SAM, PRANAV, UAX #### [facility] [address] [place] [address] [employer] Operator: Crescencio Lal MD ALT [Catalytic activity/Vol] 16 U/L Normal 10-50 [facility] Comment on above: Performed By: #### U MICAO, PRANAV, UAX #### [facility] [address] [place], [place] [id number] [employer] Operator: Crescencio Lal MD AST [Catalytic activity/Vol] 19 U/L Normal 10-50 [facility] Comment on above: Performed By: #### U MICAO, PRANAV, UAX #### [facility] [address] [place], [place] [address] [employer] Operator: Crescencio Lal MD Bilirubin [Mass/Vol] 0.4 mg/dL Normal 0.00-1.20 [facility] Comment on above: Performed By: #### U MICAO, PRANAV, UAX #### [facility] [address] [place], [place] [id number] [employer] Operator: Crescencio Lal MD BUN/CRE Ratio 13 Normal 9-20 [facility] Comment on above: Performed By: #### U MICAO, PRANAV, UAX #### [facility] [address] [place] [address] Dr. [place], [place] [phone] [employer] Operator: Crescencio Lal MD Calcium [Mass/Vol] 9.4 mg/dL Normal 8.6-10.4 [facility] Comment on above: Performed By: #### U MICAO, PRANAV, UAX #### [facility] [address] [place], [place] [phone] [employer] Operator: Crescencio Lal MD CO2 [Moles/Vol] 24 mmol/L Normal 20-31 [facility] Comment on above: Performed By: #### U MICAO, PRANAV, UAX #### [facility] [address] [place] [address] [employer] Operator: Crescencio Lal MD Creatinine [Mass/Vol] 1.0 mg/dL Normal 0.70-1.20 [facility] Comment on above: Performed By: #### U MICAO, PRANAV, UAX #### [facility] [address] [place] [address] [place] [address] [employer]: Crescencio Lal MD GFR/1.73 sq M.predicted among non-blacks MDRD (S/P/Bld) [Vol rate/Area] 80 mL/min/{1.73_m2} Normal >60 [facility] Comment on above: Result Comment: [...] renal tubular secretion. Performed By: #### U AALIYAHO PRANAV, UAX #### [address] [place] [address] [employer] Operator: Crescencio Lal MD Glucose [Mass/Vol] 105 mg/dL High 74-99 [facility] Comment on above: Performed By: #### U SAM PRANAV, UAX #### [address] [place] [address] [employer] Operator: Crescencio Lal MD Protein [Mass/Vol] 6.1 g/dL Low 6.6-8.7 [facility] Comment on above: Performed By: #### U AALIYAHO PRANAV, UAX #### [address] [place] [address] [employer]: Crescencio Lal MD Urea nitrogen [Mass/Vol] 13 mg/dL Normal 8-23 [facility] Comment on above: Performed By: #### U MICAO PRANAV, UAX #### [address] [place] [address] [employer]: Crescencio Lal MD Drug Scr, Abuse, Uron 2023 Amphetamine(s),Ur Negative Normal NEG [facility] Comment on above: Result Comment: C1KN M Performed By: #### U MICAO, PRANAV, UAX #### [facility] [address] [place] [address] Dr. [place], [place] [phone] [employer] Operator: Crescencio Lal MD Barbiturate(s),Ur Negative Normal NEG [facility] Comment on above: Result Comment: C200 NM Performed By: #### U MICAO, PRANAV, UAX #### [facility] [address] [place], [place] [address] [employer] Operator: Crescencio Lal MD Benzodiazepine(s) Negative Normal NEG [facility] Comment on above: Result Comment: C200 NM Performed By: #### U MICAO, PRANAV, UAX #### [facility] [address] [place] [address] Dr. [place], [place] 488[address]83 [employer] Operator: Crescencio Lal MD Buprenorphrine, Ur Negative Normal NEG [facility] Comment on above: Result Comment: C5NM Performed By: #### U MICAO, PRANAV, UAX #### [address] [place], [place] [address]83 [employer]: Crescencio Lal MD Cannabinoid(s),Ur Negative Normal NEG [facility] Comment on above: Result Comment: C50N M Performed By: #### U MICAO, PRANAV, UAX #### [facility] [address] [place] [address] Dr. [place], [place] [phone] [employer] Operator: Crescencio Lal MD Cocaine Metabolite Negative Normal [facility] Comment on above: Result Comment: C300 NM Performed By: #### U MICAO, PRANAV, UAX #### [facility] [address] [place] [address] Dr. [place], [place] [id number] [employer] Operator: Crescencio Lal MD Fentanyl, Urine Negative Normal NEG [facility] Comment on above: Result Comment: C5NM Performed By: #### U MICAO, PRANAV, UAX #### [facility] [address] [place] [address] Dr. [place], [place] [phone] [employer] Operator: Crescencio Lal MD Interpretive Info This method is a screening test to detect only these drug classes as part of a Normal [facility] Comment on above: Result Comment: medi ulysses workup. Confirmatory testing by another method should be ordered if clinically indicated. Performed By: #### U MICAO, PRANAV, UAX #### [address] [place], [facility]83 [employer]: Crescencio Lal MD Methadone Ql (U) Negative Normal NEG [facility] Comment on above: Result Comment: C300 NM Performed By: #### U MICAO, PRANAV, UAX #### [address] [place], [facility]83 [employer] Operator: Crescencio Lal MD Opiate(s), Ur Negative Normal NEG [facility] Comment on above: Result Comment: C300 NM UROPIC Performed By: #### U AALIYAHO, PRANAV, UAX #### [address] [place], [facility]83 [employer]: Crescencio Lal MD Oxycodone, Urine Negative Normal NEG [facility] Comment on above: Result Comment: Cuto ff: 100 ng/ml Performed By: #### U AALIYAHO, PRANAV, UAX #### [address] [place], [facility]83 [employer] Operator: Crescencio Lal MD Phencyclidine, Ur Negative Normal NEG [facility] Comment on above: Result Comment: C25N M Performed By: #### U MICAO, PRANAV, UAX #### [address] [place], [place] [address] [employer] Operator: Crescencio Lal MD Ethanol Alcoholon 01-25-2024 Ethanol [Mass/Vol] mg/dL Normal <10 [facility] Comment on above: Performed By: #### A LCB #### [facility] [address] [place], [place] [address]83 [employer] Operator: Crescencio Lal MD Ethanol percent 0.002 % Normal <0.010 [facility] Comment on above: Performed By: #### A LCB #### [facility] [address] [place] [address] [employer]: Crescencio Lal MD Glucose, Whole Bloodon 01-24 Glucose [Mass/Vol] 95 mg/dL Normal 74-100 [facility] TSH w/reflex to FT4on 2023 Thyroid Stim. Horm. 1.37 uIU/mL Normal 0.27-4.20 [facility] Comment on above: Performed By: #### T SHX #### [facility] [address] [place], [place] 1227383 [employer]: Crescencio Lal MD Troponinon 01-25-2024 Troponin, High Sens 18 ng/L Normal 0-22 [facility] Comment on above: Result Comment: High Sensitivity Troponin values cannot be compared with other Troponin methodologies. Performed By: #### C DP, CP, TROPI #### [facility] [address] [place], [place] 9398683 [employer]: Crescencio Lal MD UA w/Reflex Cultureon 2023 Bilirubin, SemiQt,Ur Negative Normal NEG [facility] Comment on above: Performed By: #### U MICAO, PRANAV, UAX #### [facility] [address] [place], [place] 316[address]83 [employer] Operator: Crescencio Lal MD Blood, Urine Negative Normal NEG [facility] Comment on above: Performed By: #### U MICAO, PRANAV, UAX #### [facility] [address] [place], [place] [address]86[address]83 [employer] Operator: Crescencio Lal MD Clarity (U) Clear Normal CLEAR [facility] Comment on above: Performed By: #### U MICAO, PRANAV, UAX #### [facility] [address] [place], [place] 6034683 [employer] Operator: Crescencio Lal MD Color (U) Yellow Normal YEL [facility] Comment on above: Performed By: #### U MICAO, PRANAV, UAX #### [facility] [address] [place], [place] [address]83 [employer] Operator: Crescencio Lal MD Glucose Ql (U) Negative Normal NEG [facility] Comment on above: Performed By: #### U MICAO, PRANAV, UAX #### [address] [place], [place] 5404183 [employer] Operator: Crescencio Lal MD Ketones Ql (U) Negative Normal NEG [facility] Comment on above: Performed By: #### U MICAO, PRANAV, UAX #### [facility] [address] [place] [address] Dr. [place], [place] 209[address]83 [employer]: Crescencio Lal MD Leukocyte esterase Test strip Ql (U) Negative Normal NEG [facility] Comment on above: Performed By: #### U MICAO, PRANAV, UAX #### [address] [place], [place] 427[address]83 [employer] Operator: Crescencio Lal MD Nitrite,Ur Negative Normal NEG [facility] Comment on above: Performed By: #### U MICAO, PRANAV, UAX #### [facility] [address] [place], [place] [address]27[address]83 [employer] Operator: Crescencio Lal MD PH,Ur 6.5 Normal 5.0-9.0 [facility] Comment on above: Performed By: #### U MICAO, PRANAV, UAX #### [facility] [address] [place], [place] [address]883 [employer] Operator: Crescencio Lal MD Protein Ql (U) TRACE Abnormal NEG [facility] Comment on above: Performed By: #### U MICAO, PRANAV, UAX #### [address] [place] [address] [employer] Operator: Crescencio Lal MD Spec. Vining,Ur 1.020 Normal 1.010-1.020 [facility] Comment on above: Performed By: #### U MICAO, PRANAV, UAX #### [facility] [address] [place] [address] Dr. [place], [place] 208[address]83 [employer] Operator: Crescencio Lal MD Urobilinogen,Ur Normal Normal 0.0-1.0 [facility] Comment on above: Performed By: #### U MICAO, PRANAV, UAX #### [address] [place] [address] [employer] Operator: Crescencio Lal MD Urinalysis,Microon 4 Casts 2 TO 5 Normal [facility] Comment on above: Result Comment: HYAL INE Performed By: #### U AALIYAHO, PRANAV, UAX #### [address] [place], [place] 8034283 [employer] Operator: Crescencio Lal MD Epithelial cells LM Ql (Urine sed) None Normal 0-5 [facility] Comment on above: Performed By: #### U MICAO, PRANAV, UAX #### [address] [place] [address] [employer] Operator: Crescencio Lal MD Mucus Strands 1+ Abnormal NONE [facility] Comment on above: Performed By: #### U MICAO, PRANAV, UAX #### [address] [place] [address] [employer] Operator: Crescencio Lal MD Urine RBC's 0 TO 2 Normal 0-2 [facility] Comment on above: Performed By: #### U MICAO, PRANAV, UAX #### [facility] [address] [place] [address] [employer] Operator: Crescencio Lal MD Urine WBC's None Normal 0-5 [facility] Comment on above: Performed By: #### U MICAO, PRANAV, UAX #### [facility] [address] [place] [address] [employer] Operator: Crescencio Lal MD Office Visiton 01-16-2024 Follow-up visit [id number] Yi Driver 1955 [facility] Provider Department Center 01/16/2024 120-CATA BARAJAS Family History Problem Relation Age of Onset Coronary artery disease Sister Coronary artery disease Maternal Grandfather Family Status - Relation Status Age at Sister Maternal Grandfather Level of Service:37614 AR OFFICE/OUTPATIENT ESTABLISHED LOW MDM 20 MIN Reason for Visit and Comments: Hyperlipidemia [182] Hypertension [215030] - Pt here for three month follow up [facility] 36on 10-27-2023 36 Per ALG pt is to double coreg [facility] Telephoneon 10-24-2023 Telephone [id number] Yi Driver 1955 [facility] Provider Department Center 10/24/2023 113-MATHEUS GOMEZ HVCVASENDO [facility] Family History Problem Relation Age of Onset Coronary artery disease Sister Coronary artery disease Maternal Grandfather Family Status - Relation Status Age at Sister Maternal Grandfather [facility] 36on 10-15-2023 36 Patient called with BP's for you since you restarted carvedilol. 147/100 136/109 HR 115 143/106 HR 109 He takes carvedilol at 4am and 4pm. The readings he gave me were taking just before his second dose at 4pm. Did you want to change the dosage? Please advise. Thanks. [facility] Telephoneon 10-15-2023 Telephone [id number] Yi Driver 1955 [facility] Provider Department Center 10/15/2023 928-CHAU, SRIKANTH BH CARD [facility] Family History Problem Relation Age of Onset Coronary artery disease Sister Coronary artery disease Maternal Grandfather Family Status - Relation Status Age at Sister Maternal Grandfather Normal [facility] Office Visiton 10-10-2023 Follow-up visit [id number] Yi Driver 1955 M Date Provider Department Center 10/10/2023 3848-GLYNN GABRIEL CARD [facility] Family History Problem Relation Age of Onset Coronary artery disease Sister Coronary artery disease Maternal Grandfather Family Status - Relation Status Age at Sister Maternal Grandfather Level of Service:21533 AR OFFICE/OUTPATIENT ESTABLISHED LOW MDM 20 MIN Normal [facility] Orders Onlyon 10-10-2023 Orders Only [id number] Yi Driver Antonio 1955 M Date Provider Department Center 10/10/2023 895-ANA BOURGEOIS MARY [facility] Family History Problem Relation Age of Onset Coronary artery disease Sister Coronary artery disease Maternal Grandfather Family Status - Relation Status Age at Sister Maternal Grandfather Normal [facility] Office Visiton 10-07-2023 Follow-up visit [id number] Yi Driver Antonio 1955 M Date Provider Department Center 10/07/2023 60961-QFQRFHERIBERTO GOINS HVCVASENDO [place] [facility] Family History Problem Relation Age of Onset Coronary artery disease Sister Coronary artery disease Maternal Grandfather Family Status - Relation Status Age at Sister Maternal Grandfather Level of Service:51118 AR OFFICE/OP CONSLTJ NEW/EST PT HIGH MDM 55 MINUTES Reason for Visit and Comments: New Patient [632] - Ascending aortic aneurysm, Ref by Cata Barajas Normal [facility] 36on 09-22-2023 36 Regarding echo result from 09/12/2023: Srikanth. He was supposed to F/U with CT Surgery in August? See if he did somewhere other than [place], If not he needs an appointment. So AO root was 3.5 cm on last echo (2022) and now 4.0 cm- and ascending aorta is 3.7 cm. Make sure his B/P is staying controlled < 130/80 please and thank you From: Srikanth Matos MA Sent: 09/18/2023 3:34 PM EDT To: [...] referral. Order entered for CT surgery at [facility]. Normal [facility] Office Visiton 05-30-2023 Follow-up visit [id number] Yi Driver 1955 M Date Provider Department Center 05/30/2023 120-CATA BARAJAS CARD [facility] Family History Problem Relation Age of Onset Coronary artery disease Sister Coronary artery disease Maternal Grandfather Family Status - Relation Status Age at Sister Maternal Grandfather Level of Service:63241 AR OFFICE/OUTPATIENT ESTABLISHED MOD MDM 30 MIN Normal [facility] COVID/FLU/RSV RT-PCRon 04-25 SARS-CoV-2 (COVID-19) RNA TEGAN+probe Ql (Unsp spec) Negative [place] [employer] Other COVID/FLU/RSV RT-PCR Negative [place] [employer] Other Facesheeton 04-07-2023 Facesheet [id number] 6[facility] Ambulatory Visit Summaryon 1 06-05-2022 Ambulatory Visit Summary YI DRIVER :1955 Visit Date:04/04/2023 Ambulatory Visit Instructions Your Care Team Attending Physician - LULU JEFFERSON, Haris De Leon Primary Care Physician - Michael Latham MD This Is Your Medications List Contact prescribing [...] for choosing us for your care. Normal [facility] Physician Referralon 023 Physician Referral [id number] #1.00TIFF Normal [facility] ECHOCARDIO M/2D COMPLETEon 0 08-12-2022 ECHOCARDIO M/2D COMPLETE Patient: YI DRIVERPedro Exam Date: 08/12/2022 : 1955 Gender:M Ordering : RODOLFO RobinPedro [facility] Admission #: [id number] Family : MICHAEL LATHAM . Order #: [id number] CLICK HERE TO VIEW EXAM ECHOCARDIOGRAM REPORT [...] M.D. on 08/12/2022 at 16:34 Normal [facility] INSULINon 12-10-2021 Insulin 14.3 uIU/mL Normal 2.6-24.9 [facility] Comment on above: Performed By: #### I NSULIN #### [facility] [address], [place] [address] Dr. Neo Mccall TESTOSTERONE, TOTALon 2021 Testosterone [Mass/Vol] 269 ng/dL Normal 264-916 [facility] Comment on above: Result Comment: Adul t male reference interval is based on a population of healthy nonobese males (BMI <30) between 19 and 39 years old. Raya, et.al. JCEM 2017,102;8978-7659. PMID: [id number]. Performed By: #### T ESTTOT #### [facility] [address] [place], [place] [address] Dr. Neo Mccall OCC BLD IMMUNO SCREENon OCCULT BLOOD Negative Normal NEGATIVE [facility] Comment on above: Performed By: #### O BSCRN ####[facility] [address] [place], [place] [address]OtDr. Neo Mccall CBC AUTO DIFFon 12-07-2021 BASO # 0.1 103/ul Normal 0.0-0.1 [facility] Comment on above: Performed By: #### C BC #### [facility] [address] [place] [address] Dr. Neo Mccall Basophils/100 WBC (Bld) 0.9 % Normal 0.2-2.0 [facility] Comment on above: Performed By: #### C BC #### [facility] [address] [place] [address] Dr. Neo Mccall EO # 0.4 103/ul Normal 0.0-0.7 [facility] Comment on above: Performed By: #### C BC #### [facility] [address] [place] [address] Dr. Neo Mccall Eosinophils/100 WBC (Bld) 4.7 % Normal 0.9-7.0 [facility] Comment on above: Performed By: #### C BC #### [facility] [address] [place] [address] Dr. Neo Mccall Erythrocyte distribution width (RBC) [Ratio] 12.8 % Normal 11.0-15.0 [facility] Comment on above: Performed By: #### C BC #### [facility] [address] [place] [address] Dr. Neo Mccall Hematocrit (Bld) [Volume fraction] 42.7 % Normal 42.0-54.0 [facility] Comment on above: Performed By: #### C BC #### [facility] [address] [place] [address] Dr. Neo Mccall Hemoglobin (Bld) [Mass/Vol] 14.6 g/dL Normal 14.0-18.0 [facility] Comment on above: Performed By: #### C BC #### [facility] [address] [place] [address] Dr. Neo Mccall IG # 0.02 10e3/ul Normal 0.00-0.03 [facility] Comment on above: Performed By: #### C BC #### [facility] [address] [place] [address] Dr. Neo Mccall IG % 0.2 % Normal 0.0-0.5 [facility] Comment on above: Performed By: #### C BC #### [facility] [address] [place] [address] Dr. Neo Mccall LYMPH # 2.0 103/ul Normal 1.2-3.8 [facility] Comment on above: Performed By: #### C BC #### [facility] [address] [place] [address] Dr. Neo Mccall Lymphocytes/100 WBC (Bld) 22.9 % Normal 20.5-60.0 [facility] Comment on above: Performed By: #### C BC #### [facility] [address] [place] [address] Dr. Neo Mccall MANUAL DIFF REQ NO Normal [facility] Comment on above: Performed By: #### C BC #### [facility] [address] [place] [address] Dr. Neo Mccall MCH (RBC) [Entitic mass] 32.1 pg Normal 25.9-34.0 [facility] Comment on above: Performed By: #### C BC #### [facility] [address] [place] [address] Dr. Neo Mccall MCHC (RBC) [Mass/Vol] 34.2 g/dL Normal 29.9-35.2 [facility] Comment on above: Performed By: #### C BC #### [facility] [address] [place] [address] Dr. Neo Mccall MCV (RBC) [Entitic vol] 93.8 fL Normal 80.0-94.0 [facility] Comment on above: Performed By: #### C BC #### [facility] [address] [place] [address] Dr. Neo Mccall MONO # 0.8 103/ul Normal 0.3-0.8 [facility] Comment on above: Performed By: #### C BC #### [facility] [address] [place] [address] Dr. Neo Mccall Monocytes/100 WBC (Bld) 8.9 % Normal 1.7-12.0 [facility] Comment on above: Performed By: #### C BC #### [facility] [address] [place] [address] [address] Neo Mccall NEUT # 5.4 103/ul Normal 1.4-6.5 [facility] Comment on above: Performed By: #### C BC #### [facility] [address] [place] [address] [address] Neo Mccall Neutrophils/100 WBC (Bld) 62.4 % Normal 43.0-75.0 [facility] Comment on above: Performed By: #### C BC #### [facility] [address] [place] [address] Dr. Neo Mccall Platelet mean volume (Bld) [Entitic vol] 9.4 fL Critically low 9.5-13.5 [facility] Comment on above: Performed By: #### C BC #### [facility] [address] [place] [address] Dr. Neo Mccall PLT 321 103/ul Normal 150-450 [facility] Comment on above: Performed By: #### C BC #### [facility] [address] [place] [address] Dr. Neo Mccall RBC 4.55 106/ul Critically low 4.70-6.10 [facility] Comment on above: Performed By: #### C BC #### [facility] [address] [place] [address] Dr. Neo Mccall WBC 8.7 103/ul Normal 4.0-11.0 [facility] Comment on above: Performed By: #### C BC #### [facility] [address] [place] [address] Dr. Neo Mccall FREE THYROXINE INDEX T7on FTI 2.74 Normal 1.30-4.50 [facility] Comment on above: Performed By: #### T 7, TSH, CMP, LIPID #### [facility] [address] [place] [address] Dr. Neo Mccall T3U 33.0 % Normal 33.0-40.0 [facility] Comment on above: Performed By: #### T 7, TSH, CMP, LIPID #### [facility] [address] [place] [address] Dr. Neo Mccall T4 [Mass/Vol] 8.30 ug/dL Normal 4.50-12.10 [facility] Comment on above: Performed By: #### T 7, TSH, CMP, LIPID #### [facility] [address] [place] [address] [address] Neo Mccall GLYCOHEMOGLOBIN A1Con 2021 ADA RECOMMENDATION SEE BELOW Normal [facility] Comment on above: Result Comment: ADA RECOMMENDED LIMIT 4.0 - 6.0 ADA THERAPEUTIC TARGET < 7.0 ACTION SUGGESTED > 7.0 Performed By: #### A 1C ####[facility] [id number] [address]Dr. Neo Mccall Glucose [Mass/Vol] 123 mg/dL Normal [facility] Comment on above: Performed By: #### A 1C ####[facility] [id number] [address]Dr. Neo Mccall HbA1c (Bld) [Mass fraction] 5.9 % Normal 4.5-6.2 [facility] Comment on above: Performed By: #### A 1C ####[facility] [id number] [address]Dr. Noe Mccall IRONon 12-07-2021 Iron [Mass/Vol] 127.0 ug/dL Normal 65.0-175.0 [facility] Comment on above: Performed By: #### P SASC, IRON #### [facility] [address] [address] [address] Neo Mccall LIPID PROFILEon 12-07-2021 CHOL-HDL RATIO NORM SEE BELOW Normal [facility] Comment on above: Result Comment: 3.3 - 4.4 LOW RISK 4.4 - 7.1 AVERAGE RISK 7.1 - 11.0 MODERATE RISK >11.0 HIGH RISK Performed By: #### T 7, TSH, CMP, LIPID #### [facility] [address] [address] [address] Neo Mccall Cholesterol [Mass/Vol] 192 mg/dL Normal <=200 [facility] Comment on above: Performed By: #### T 7, TSH, CMP, LIPID #### [facility] [address] [address] [address] Neo Mccall Cholesterol in HDL [Mass/Vol] 48 mg/dL Normal 40-60 [facility] Comment on above: Performed By: #### T 7, TSH, CMP, LIPID #### [facility] [address] [address] [address] Neo Mccall Cholesterol in LDL [Mass/Vol] 102.2 mg/dL Normal [facility] Comment on above: Performed By: #### T 7, TSH, CMP, LIPID #### [facility] [address] [address] [address] Neo Mccall Cholesterol.total/Ch olesterol in HDL [Mass ratio] 4.0 {ratio} Normal [facility] Comment on above: Performed By: #### T 7, TSH, CMP, LIPID #### [facility] [address] [address] [address] Neo Mccall HDL NORMAL > or = 60 mg/dl - LOW CARDIOVASCULAR RISK <40 mg/dl - HIGH CARDIOVASCULAR RISK Normal [facility] Comment on above: Performed By: #### T 7, TSH, CMP, LIPID #### [facility] [address] [address] [address] Neo Mccall LDL CALC NORMAL SEE BELOW Normal [facility] Comment on above: Result Comment: <100 mg/dl OPTIMAL 100 - 129 mg/dl NEAR OR ABOVE OPTIMAL 130 - 159 mg/dl BORDERLINE HIGH 160 - 189 mg/dl HIGH >190 mg/dl VERY HIGH Performed By: #### T 7, TSH, CMP, LIPID #### [facility] [address] [address] [address] Neo Mccall Triglyceride [Mass/Vol] 209 mg/dL Critically high <=150 [facility] Comment on above: Performed By: #### T 7, TSH, CMP, LIPID #### [facility] [address] [address] [address] Neo Mccall VLDL CALC 41.8 mg/dL Normal [facility] Comment on above: Performed By: #### T 7, TSH, CMP, LIPID #### [facility] [address] [address] [address] Neo Mccall PROF 14(COMP METB)on 022 Albumin [Mass/Vol] 4.2 g/dL Normal 3.4-5.0 [facility] Comment on above: Performed By: #### T 7, TSH, CMP, LIPID #### [facility] [address] [address] [address] Neo Mccall Albumin/Globulin [Mass ratio] 1.3 {ratio} Normal [facility] Comment on above: Performed By: #### T 7, TSH, CMP, LIPID #### [facility] [address] [address] [address] Neo Mccall ALP [Catalytic activity/Vol] 96 U/L Normal 46-116 [facility] Comment on above: Performed By: #### T 7, TSH, CMP, LIPID #### [facility] [address] [address] [address] Neo Mccall ALT [Catalytic activity/Vol] 34 U/L Normal 16-63 [facility] Comment on above: Performed By: #### T 7, TSH, CMP, LIPID #### [facility] [address] [address] [address] Neo Mccall Anion gap [Moles/Vol] 11.6 mmol/L Normal [facility] Comment on above: Performed By: #### T 7, TSH, CMP, LIPID #### [facility] [address] [address] [address] Neo Mccall AST [Catalytic activity/Vol] 18 U/L Normal 15-37 [facility] Comment on above: Performed By: #### T 7, TSH, CMP, LIPID #### [facility] [address] [address] [address] Neo Mccall Bilirubin [Mass/Vol] 0.6 mg/dL Normal 0.2-1.0 [facility] Comment on above: Performed By: #### T 7, TSH, CMP, LIPID #### [facility] [address] [address] [address] Neo Mccall Calcium [Mass/Vol] 9.3 mg/dL Normal 8.5-10.1 [facility] Comment on above: Performed By: #### T 7, TSH, CMP, LIPID #### [facility] [address] [place] [address] Dr. Neo Mccall Chloride [Moles/Vol] 107 mmol/L Normal 98-107 [facility] Comment on above: Performed By: #### T 7, TSH, CMP, LIPID #### [facility] [address] [place] [address] Dr. Neo Mccall CO2 [Moles/Vol] 30.8 mmol/L Normal 21.0-32.0 [facility] Comment on above: Performed By: #### T 7, TSH, CMP, LIPID #### [facility] [address] [place] [address] Dr. Neo Mccall Creatinine [Mass/Vol] 1.14 mg/dL Normal 0.70-1.30 [facility] Comment on above: Performed By: #### T 7, TSH, CMP, LIPID #### [facility] [address] [place] [address] Dr. Neo Mccall EGFR-AF SWAZI >60 Normal >=60 [facility] Comment on above: Performed By: #### T 7, TSH, CMP, LIPID #### [facility] [address] [place] [address] Dr. Neo Mccall EGFR-NON AF SWAZI >60 Normal >=60 [facility] Comment on above: Performed By: #### T 7, TSH, CMP, LIPID #### [facility] [address] [place] [address] Dr. Neo Mccall Globulin (S) [Mass/Vol] 3.2 g/dL Normal [facility] Comment on above: Performed By: #### T 7, TSH, CMP, LIPID #### [facility] [address] [place] [address] Dr. Neo Mccall Glucose [Mass/Vol] 99 mg/dL Normal 74-106 [facility] Comment on above: Performed By: #### T 7, TSH, CMP, LIPID #### [facility] [address] [address] [address] Neo Mccall Potassium [Moles/Vol] 3.4 mmol/L Critically low 3.5-5.1 [facility] Comment on above: Performed By: #### T 7, TSH, CMP, LIPID #### [facility] [address] [place] [address] Dr. Neo Mccall Protein [Mass/Vol] 7.4 g/dL Normal 6.4-8.2 [facility] Comment on above: Performed By: #### T 7, TSH, CMP, LIPID #### [facility] [address] [address] [address] Neo Mccall Sodium [Moles/Vol] 146 mmol/L Critically high 136-145 [facility] Comment on above: Performed By: #### T 7, TSH, CMP, LIPID #### [facility] [address] [place] [address] Dr. Neo Mccall Urea nitrogen [Mass/Vol] 17.0 mg/dL Normal 7.0-18.0 [facility] Comment on above: Performed By: #### T 7, TSH, CMP, LIPID #### [facility] [address] [place] [address] Dr. Neo Mccall Urea nitrogen/Creatinine [Mass ratio] 14.9 mg/mg Normal [facility] Comment on above: Performed By: #### T 7, TSH, CMP, LIPID #### [facility] [address] [place] [address] Dr. Neo Mccall TSHon 12-07-2021 TSH 1.906 uIU/mL Normal 0.358-3.740 [facility] Comment on above: Performed By: #### T 7, TSH, CMP, LIPID #### [facility] [address] [place] [address] Dr. Neo Mccall SARS-CoV-2 (COVID-19) RNA NA A+probe Ql (Resp)on 11-19-2021 SARS-CoV-2 (COVID-19) RNA TEGAN+probe Ql (Unsp spec) Positive [facility]. Other Vital Signs Date Time Vital Sign Value Performing Clinician Faci lity 02-19-2024 11:43-0400 Body height 175.3 cm Christopher Bertha DO Work Phone: [facility] 02-19-2024 11:43-0400 Body mass index (BMI) [Ratio] 35.65 kg/m2 Christopher Bertha DO Work Phone: [facility] 02-19-2024 11:43-0400 Body weight 109.5 kg Christopher Bertha DO Work Phone: [facility] 02-19-2024 11:43-0400 Diastolic blood pressure 93 mm[Hg] Christopher Bertha DO Work Phone: [facility] 02-19-2024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 [facility] [employer] [facility]. provides no warranty or guarantee of the accuracy or completeness of information in this document.
[2024-04-27 09:38] LABS: Basophils Absolute Auto 0.1 10^3/uL (0.0-0.1); Basophils Percent Auto 1.1 % (0.2-2.0); Eosinophils Absolute Auto 0.5 10^3/uL (0.0-0.7); Hematocrit 41.1 % (42.0-54.0); Immature Granulocytes Abs Auto 0.02 10^3/uL (0.00-0.03); Immature Granulocytes Pct Auto 0.3 % (0.0-0.5); Lymphocytes Percent Auto 29.8 % (20.5-60.0); Mean Corpuscular HGB Conc 34.1 g/dL (29.9-35.2); Mean Corpuscular Hemoglobin 31.5 pg (25.9-34.0); Mean Corpuscular Volume 92.6 fL (80.0-94.0); Mean Platelet Volume 9.5 fL (9.5-13.5); Monocytes Absolute Auto 0.7 10^3/uL (0.3-0.8); Monocytes Percent Auto 11.2 % (1.7-12.0); Neutrophils Absolute Auto 3.3 10^3/uL (1.4-6.5); Neutrophils Percent Auto 50.6 % (43.0-75.0); Platelet Count 262 10^3/uL (150-450); Red Blood Count 4.44 10^6/uL (4.70-6.10); Red Cell Distribution Width 12.2 % (11.0-15.0); White Blood Count 6.6 10^3/uL (4.0-11.0)
[2024-04-27 10:30] LABS: Estimated Average Glucose 111 mg/dL; Glycohemoglobin A1C 5.5 % (4.5-6.2)
[2024-04-27 10:59] LABS: Alanine Aminotransferase 32 U/L (16-63); Albumin Globulin Ratio 1.2; Albumin Level 3.5 g/dL (3.4-5.0); Alkaline Phosphatase 75 U/L (46-116); Anion Gap 11.6; Aspartate Amino Transferase 16 U/L (15-37); BUN Creatinine Ratio 16.5; Bilirubin Total 0.3 mg/dL (0.2-1.0); Calcium 8.9 mg/dL (8.5-10.1); Carbon Dioxide 30.4 mmol/L (21.0-32.0); Chloride 108 mmol/L (98-107); Chol HDL Ratio 2.8; Cholesterol 168 mg/dL (<=200); Estimated GFR (African America >60 (>=60 mL/min/1.73m^2); Estimated GFR (Non-African Ame >60 (>=60 mL/min/1.73m^2); Free T3 2.42 pg/mL (2.18-3.98); Globulin 2.8 g/dL; Glucose 109 mg/dL (74-106); HDL Cholesterol 60 mg/dL (40-60); LDL Cholesterol Calculated 89.8 mg/dL; Sodium 146 mmol/L (136-145); Thyroid Stimulating Hormone 2.823 uIU/mL (0.358-3.740); Total Protein 6.3 g/dL (6.4-8.2); Triglycerides 91 mg/dL (<=150); VLDL CHOLESTEROL 18.2 mg/dL
== END 2024-04-27 09:24 | disposition home or self-care (01) ==
LOC: LAB 09:26
PROVIDERS: PCP Family Medicine; Visit Provider Family Medicine
DX: Z00.00 Encounter for general adult medical examination without abnormal findings (principal)
CPT/HCPCS: 36415; 80053; 80061; 83036; 84436; 84443; 84481; 85025; G0103

== ENCOUNTER 2024-04-29 10:08 | Outpatient (REF) | payer BC, SELFPAY ==
--- OUTSIDE RECORDS SUMMARY | 2024-04-30 10:22 | XMS_ITS | CCD ---
Author Organization [facility] Care Team Providers Care Contracting Analyst Name Role Phone PHYSICIAN, DEFAULT Admitting Unavailable [...] HOY ., DR RODRIGUEZ Primary Care Unavailable ROODLFO BOWSER Consulting Unavailable MISC, DR BECKETT Admitting [...] DR RODRIGUEZ Consulting Unavailable Apolinar Islas Unavailable [phone] MD Michael Latham Primary Care Provider [phone] MD Apolinar Islas Attending Provider Michael Latham Primary Care Physician Haris LAWSON Attending Unavailable Apolinar Islas Attending Unavaila ble Apolinar Islas Admitting Unavaila Michael [place] Primary Care Unavailable HERIBERTO GOINS Referring Unavailable HERIBERTO GOINS Attending Unavailable GLYNN GABRIEL Attending Unavailable CATA BARAJAS Attending Unavailable CATA BARAJAS Attending Unavailable HERIBERTO GOINS Referring Unavailable HERIBERTO GOINS Referring Unavailable BRISEIDA HERIBERTO Referring Unavailable CATA FROST Attending Unavailable MICHAEL LATHAM Primary Care Unavailable Michael Latham MD Primary Care Provider [phone] APOLINAR STONE Attending Unavailable YARELY MATTHEWS Attending Unavailable MICHAEL LATHAM Referring Unavailable Allergies Allergy Classification Reported Allergen(s) Allergy Type Date of Onset Reaction(s) Facility (4 sources) Adhesive agent; Translations: [ADHESIVE] Drug allergy (disorder) 1 Redness of Skin [facility] Repository (3 sources) Amino Acids; Translations: [lisinopril] Drug Allergy [facility] Repository (2 sources) Adhesive bandage; Translations: [Adhesive Bandage] Drug allergy Eruption of skin (disorder) [facility] (1 source) Lisinopril; Translations: [lisinopril] Drug Allergy Cough (finding) [facility] (1 source) Doxazosin; Translations: [Cardura] Drug Allergy [facility] Repository (1 source) Adhesive agent Drug allergy (disorder) [address] [facility] Repository (2 sources) Lisinopril Propensity to adverse [...] 1 puff(s) by inhalation in the morning Gsdlxuagrkk-Dexwtlapw-Acmlni (Trelegy Ellipta) 100-62.5-25 MCG/ACT aerosol powder Inhale [...] Active Multivitamin preparation (4 sources) Multivitamin Active Multivitamin-Biodiesel Plant Superintendent als-Lutein (Multivitamin 50 Plus) Tablet (1 source) Start: 01-06-2020 Multivitamin-[place] als-Lutein (Multivitamin 50 Plus) Tablet Active 1 TAB PO Daily at bedtime January 05, 2020 11:00pm Naproxen (2 sources) Nonsteroidal Anti-inflammatory Drug Naproxen Active Corrigan 3-Mkt-Qoo-Fish Oil (Fish Oil) 1,200 (144-216) mg Capsule (1 source) Start: 01-06-2020 take 1 capsule by mouth once daily at bedtime Corrigan 1-Wsx-Eyg-Fish Oil (Fish Oil) 1,200 (144-216) mg Capsule [...] 01-25-2024 Abs. Basophil 0.08 k/uL Normal 0.00-0.20 [facility] Comment on above: Performed By: #### C OLIVIA CASTILLO, TROPI #### [address] [place] [address] Low Vision Therapist: Crescencio Lal MD Abs.Imm.Granulocyte 0.03 k/uL Normal 0.00-0.30 [facility] Comment on above: Performed By: #### C OLIVIA CASTILLO, TROPI #### [address] [place] [address] Low Vision Therapist: Crescencio Lal MD Abs.Neutrophil (Seg) 5.34 k/uL Normal 1.50-8.10 [facility] Comment on above: Performed By: #### C OLIVIA CASTILLO, TROPI #### [address] [place], [place] [phone] Low Vision Therapist: Crescencio Lal MD Basophils/100 WBC (Bld) 1 % Normal 0-2 [facility] Comment on above: Performed By: #### C DP, CP, TROPI #### [address] [place] [phone] Low Vision Therapist: Crescencio Lal MD Eosinophils (Bld) [#/Vol] 0.28 10*3/uL Normal 0.00-0.44 [facility] Comment on above: Performed By: #### C DP, CP, TROPI #### [address] [place] [phone] Low Vision Therapist: Crescencio Lal MD Eosinophils/100 WBC (Bld) 4 % Normal 1-4 [facility] Comment on above: Performed By: #### C DP, CP, TROPI #### [address] [place] [phone] Low Vision Therapist: Crescencio Lal MD Erythrocyte distribution width (RBC) [Ratio] 12.7 % Normal 11.8-14.4 [facility] Comment on above: Performed By: #### C DP, CP, TROPI #### [address] [place] [phone] Low Vision Therapist: Crescencio Lal MD Hematocrit (Bld) [Volume fraction] 36.3 % Low 40.7-50.3 [facility] Comment on above: Performed By: #### C DP, CP, TROPI #### [address] [place] [phone] Low Vision Therapist: Crescencio Lal MD Hemoglobin (Bld) [Mass/Vol] 12.8 g/dL Low 13.0-17.0 [facility] Comment on above: Performed By: #### C DP, CP, TROPI #### [address] [place] [facility] Low Vision Therapist: Crescencio Lal MD Immature granulocytes/100 WBC (Bld) 0 % Normal 0 [facility] Comment on above: Performed By: #### C ANNA CP, TROPI #### [facility] [address] [place] Low Vision Therapist: Crescencio Lal MD Lymphocytes (Bld) [#/Vol] 1.45 10*3/uL Normal 1.10-3.70 [facility] Comment on above: Performed By: #### C ANNA, CP, TROPI #### [address] [place], [place] [address] Low Vision Therapist: Crescencio Lal MD Lymphocytes/100 WBC (Bld) 18 % Low 24-43 [facility] Comment on above: Performed By: #### C ANNA CP, TROPI #### [address] [place], [place] [address] Low Vision Therapist: Crescencio Lal MD MCH (RBC) [Entitic mass] 32.7 pg Normal 25.2-33.5 [facility] Comment on above: Performed By: #### C OLIVIA CASTILLO, TROPI #### [address] [place] Low Vision Therapist: Crescencio Lal MD MCHC (RBC) [Mass/Vol] 35.3 g/dL High 28.4-34.8 [facility] Comment on above: Performed By: #### C ANNA CP, TROPI #### [address] [place] Low Vision Therapist: Crescencio Lal MD MCV (RBC) [Entitic vol] 92.6 fL Normal 82.6-102.9 [facility] Comment on above: Performed By: #### C ANNA, CP, TROPI #### [address] [place], [place] [phone] Low Vision Therapist: Crescencio Lal MD Monocytes (Bld) [#/Vol] 0.81 10*3/uL Normal 0.10-1.20 [facility] Comment on above: Performed By: #### C DP, CP, TROPI #### [facility] [address] [place] [address] Low Vision Therapist: Crescencio Lal MD Monocytes/100 WBC (Bld) 10 % Normal 3-12 [facility] Comment on above: Performed By: #### C DP, CP, TROPI #### [facility] [address] [place] [address] Low Vision Therapist: Crescencio Lal MD Neutrophil (Seg) 67 % High 36-65 [facility] Comment on above: Performed By: #### C DP CP, TROPI #### [facility] [address] [place], [facility] Low Vision Therapist: Crescencio Lal MD NRBC Automated 0.0 per 100 WBC Normal 0.0 [facility] Comment on above: Performed By: #### C ANNA CP, TROPI #### [address] [place] [address] Low Vision Therapist: Crescencio Lal MD Platelet mean volume (Bld) [Entitic vol] 9.5 fL Normal 8.1-13.5 [facility] Comment on above: Performed By: #### C DP CP, TROPI #### [facility] [address] [place] [address] Low Vision Therapist: Crescencio Lal MD Platelets (Bld) [#/Vol] 368 10*3/uL Normal 138-453 [facility] Comment on above: Performed By: #### C DP, CP, TROPI #### [facility] [address] [place], [place] [phone] Low Vision Therapist: Crescencio Lal MD RBC (Bld) [#/Vol] 3.92 10*6/uL Low 4.21-5.77 [facility] Comment on above: Performed By: #### C OLIVIA CASTILLO, TROPI #### [facility] [address] [place] [phone] Low Vision Therapist: Crescencio Lal MD WBC (Bld) [#/Vol] 8.0 10*3/uL Normal 3.5-11.3 [facility] Comment on above: Performed By: #### C OLIVIA CASTILLO, TROPI #### [facility] [address] [place] [address] Low Vision Therapist: Crescencio Lal MD CT HEAD WO CONTRASTon [...] MD 01/25/24 Edited Result - FINAL Normal [facility] CTA HEAD NECK W CONTRASTon 0 01-25-2024 [...] Yuri Samuels MD 01/25/24 Final result Normal [facility] Comp Metabolic Profon 2023 Anion gap [Moles/Vol] 13 mmol/L Normal 01-18 [facility] Comment on above: Performed By: #### U PRANAV VARGAS UAX #### [facility] [address] [place] [address] Low Vision Therapist: Crescencio Lal MD Chloride [Moles/Vol] 104 mmol/L Normal 98-107 [facility] Comment on above: Performed By: #### U MICALuz, PRANAV, UAX #### [facility] [address] [place] [address] Low Vision Therapist: Crescencio Lal MD Sodium [Moles/Vol] 141 mmol/L Normal 136-145 [facility] Comment on above: Performed By: #### U MICAO, PRANAV, UAX #### [facility] [address] [place], [place] [phone] Low Vision Therapist: Crescencio Lal MD Potassium [Moles/Vol] 3.8 mmol/L Normal 3.7-5.3 [facility] Comment on above: Performed By: #### U SAM PRANAV, UAX #### [address] [place] [address] Low Vision Therapist: Crescencio Lal MD Albumin [Mass/Vol] 4.0 g/dL Normal 3.5-5.2 [facility] Comment on above: Performed By: #### U SAM PRANAV, UAX #### [address] [place] [address] Low Vision Therapist: Crescencio Lal MD Albumin/Glob Ratio 1.8 Normal 1.0-2.5 [facility] Comment on above: Performed By: #### U SAM PRANAV, UAX #### [facility] [address] [place] [address] Low Vision Therapist: Crescencio Lal MD Alkaline Phos 72 U/L Normal 40-129 [facility] Comment on above: Performed By: #### U SAM, PRANAV, UAX #### [facility] [address] [place] [address] Low Vision Therapist: Crescencio Lal MD ALT [Catalytic activity/Vol] 16 U/L Normal 10-50 [facility] Comment on above: Performed By: #### U MICAO, PRANAV, UAX #### [facility] [address] [place], [place] [phone] Low Vision Therapist: Crescencio Lal MD AST [Catalytic activity/Vol] 19 U/L Normal 10-50 [facility] Comment on above: Performed By: #### U MICAO, PRANAV, UAX #### [facility] [address] [place], [place] [phone] Low Vision Therapist: Crescencio Lal MD Bilirubin [Mass/Vol] 0.4 mg/dL Normal 0.00-1.20 [facility] Comment on above: Performed By: #### U MICAO, PRANAV, UAX #### [facility] [address] [place], [place] [phone] Low Vision Therapist: Crescencio Lal MD BUN/CRE Ratio 13 Normal 9-20 [facility] Comment on above: Performed By: #### U MICAO, PRANAV, UAX #### [facility] [address] [place] [address] Dr. [place], [place] [phone] Low Vision Therapist: Crescencio Lal MD Calcium [Mass/Vol] 9.4 mg/dL Normal 8.6-10.4 [facility] Comment on above: Performed By: #### U MICAO, PRANAV, UAX #### [facility] [address] [place], [place] [phone] Low Vision Therapist: Crescencio Lal MD CO2 [Moles/Vol] 24 mmol/L Normal 20-31 [facility] Comment on above: Performed By: #### U MICAO, PRANAV, UAX #### [facility] [address] [place] [address] Low Vision Therapist: Crescencio Lal MD Creatinine [Mass/Vol] 1.0 mg/dL Normal 0.70-1.20 [facility] Comment on above: Performed By: #### U MICAO, PRANAV, UAX #### [facility] [address] [place] [address] [place] [address] Low Vision Therapist: Crescencio Lal MD GFR/1.73 sq M.predicted among non-blacks MDRD (S/P/Bld) [Vol rate/Area] 80 mL/min/{1.73_m2} Normal >60 [facility] Comment on above: Result Comment: These results [...] By: #### U AALIYAHO PRANAV, UAX #### [address] [place] [address] Low Vision Therapist: Crescencio Lla MD Glucose [Mass/Vol] 105 mg/dL High 74-99 [facility] Comment on above: Performed By: #### U SAM PRANAV, UAX #### [address] [place] [address] Low Vision Therapist: Crescencio Lal MD Protein [Mass/Vol] 6.1 g/dL Low 6.6-8.7 [facility] Comment on above: Performed By: #### U AALIYAHO PRANAV, UAX #### [address] [place] [address] Low Vision Therapist: Crescencio Lal MD Urea nitrogen [Mass/Vol] 13 mg/dL Normal 8-23 [facility] Comment on above: Performed By: #### U MICAO PRANAV, UAX #### [address] [place] [address] Low Vision Therapist: Crescencio Lal MD Drug Scr, Abuse, Uron 2023 Amphetamine(s),Ur Negative Normal NEG [facility] Comment on above: Result Comment: C1KN M Performed By: #### U MICAO, PRANAV, UAX #### [facility] [address] [place] [address] Dr. [place], [place] [phone] Low Vision Therapist: Crescencio Lal MD Barbiturate(s),Ur Negative Normal NEG [facility] Comment on above: Result Comment: C200 NM Performed By: #### U MICAO, PRANAV, UAX #### [facility] [address] [place], [place] [phone] Low Vision Therapist: Crescencio Lal MD Benzodiazepine(s) Negative Normal NEG [facility] Comment on above: Result Comment: C200 NM Performed By: #### U MICAO, PRANAV, UAX #### [facility] [address] [place] [address] Dr. [place], [place] [phone] Low Vision Therapist: Crescencio Lal MD Buprenorphrine, Ur Negative Normal NEG [facility] Comment on above: Result Comment: C5NM Performed By: #### U MICAO, PRANAV, UAX #### [address] [place], [place] [phone] Low Vision Therapist: Crescencio Lal MD Cannabinoid(s),Ur Negative Normal NEG [facility] Comment on above: Result Comment: C50N M Performed By: #### U MICAO, PRANAV, UAX #### [facility] [address] [place] [address] Dr. [place], [place] [phone] Low Vision Therapist: Crescencio Lal MD Cocaine Metabolite Negative Normal [facility] Comment on above: Result Comment: C300 NM Performed By: #### U MICAO, PRANAV, UAX #### [facility] [address] [place] [address] Dr. [place], [place] [phone] Low Vision Therapist: Crescencio Lal MD Fentanyl, Urine Negative Normal NEG [facility] Comment on above: Result Comment: C5NM Performed By: #### U MICAO, PRANAV, UAX #### [facility] [address] [place] [address] Dr. [place], [place] [phone] Low Vision Therapist: Crescencio Lal MD Interpretive Info This method is a screening test to detect only these drug classes as part of a Normal [facility] Comment on above: Result Comment: medi ulysses workup. Confirmatory testing by another method should be ordered if clinically indicated. Performed By: #### U MICAO, PRANAV, UAX #### [address] [place], [facility] Low Vision Therapist: Crescencio Lal MD Methadone Ql (U) Negative Normal NEG [facility] Comment on above: Result Comment: C300 NM Performed By: #### U MICAO, PRANAV, UAX #### [address] [place], [facility] Low Vision Therapist: Crescencio Lal MD Opiate(s), Ur Negative Normal NEG [facility] Comment on above: Result Comment: C300 NM UROPIC Performed By: #### U AALIYAHO, PRANAV, UAX #### [address] [place], [facility] Low Vision Therapist: Crescencio Lal MD Oxycodone, Urine Negative Normal NEG [facility] Comment on above: Result Comment: Cuto ff: 100 ng/ml Performed By: #### U AALIYAHO, PRANAV, UAX #### [address] [place], [facility] Low Vision Therapist: Crescencio Lal MD Phencyclidine, Ur Negative Normal NEG [facility] Comment on above: Result Comment: C25N M Performed By: #### U MICAO, PRANAV, UAX #### [address] [place], [place] [address]83 Low Vision Therapist: Crescencio Lal MD Ethanol Alcoholon 01-25-2024 Ethanol [Mass/Vol] mg/dL Normal <10 [facility] Comment on above: Performed By: #### A LCB #### [facility] [address] [place], [place] [phone] Low Vision Therapist: Crescencio Lal MD Ethanol percent 0.002 % Normal <0.010 [facility] Comment on above: Performed By: #### A LCB #### [facility] [address] [place] [address] Low Vision Therapist: Crescencio Lal MD Glucose, Whole Bloodon 01-24 Glucose [Mass/Vol] 95 mg/dL Normal 74-100 [facility] TSH w/reflex to FT4on 2023 Thyroid Stim. Horm. 1.37 uIU/mL Normal 0.27-4.20 [facility] Comment on above: Performed By: #### T SHX #### [facility] [address] [place], [place] [phone] Low Vision Therapist: Crescencio Lal MD Troponinon 01-25-2024 Troponin, High Sens 18 ng/L Normal 0-22 [facility] Comment on above: Result Comment: High Sensitivity Troponin values cannot be compared with other Troponin methodologies. Performed By: #### C DP, CP, TROPI #### [facility] [address] [place], [place] [phone] Low Vision Therapist: Crescencio Lal MD UA w/Reflex Cultureon 2023 Bilirubin, SemiQt,Ur Negative Normal NEG [facility] Comment on above: Performed By: #### U MICAO, PRANAV, UAX #### [facility] [address] [place], [place] [phone] Low Vision Therapist: Crescencio Lal MD Blood, Urine Negative Normal NEG [facility] Comment on above: Performed By: #### U MICAO, PRANAV, UAX #### [facility] [address] [place], [place] [phone] Low Vision Therapist: Crescencio Lal MD Clarity (U) Clear Normal CLEAR [facility] Comment on above: Performed By: #### U MICAO, PRANAV, UAX #### [facility] [address] [place], [place] [phone] Low Vision Therapist: Crescencio Lal MD Color (U) Yellow Normal YEL [facility] Comment on above: Performed By: #### U MICAO, PRANAV, UAX #### [facility] [address] [place], [place] [phone] Low Vision Therapist: Crescencio Lal MD Glucose Ql (U) Negative Normal NEG [facility] in Hospital Comment on above: Performed By: #### U MICAO, PRANAV, UAX #### [address] [place], [place] [phone] Low Vision Therapist: Crescencio Lal MD Ketones Ql (U) Negative Normal NEG [facility] Comment on above: Performed By: #### U MICAO, PRANAV, UAX #### [facility] [address] [place] [address] Dr. [place], [place] 2395283 Low Vision Therapist: Crescencio Lal MD Leukocyte esterase Test strip Ql (U) Negative Normal NEG [facility] Comment on above: Performed By: #### U MICAO, PRANAV, UAX #### [address] [place], [place] [phone] Low Vision Therapist: Crescencio Lal MD Nitrite,Ur Negative Normal NEG [facility] Comment on above: Performed By: #### U MICAO, PRANAV, UAX #### [facility] [address] [place], [place] 2289383 Low Vision Therapist: Crescencio Lal MD PH,Ur 6.5 Normal 5.0-9.0 [facility] Comment on above: Performed By: #### U MICAO, PRANAV, UAX #### [facility] [address] [place], [place] [phone] Low Vision Therapist: Crescencio Lal MD Protein Ql (U) TRACE Abnormal NEG [facility] Comment on above: Performed By: #### U MICAO, PRANAV, UAX #### [address] [place] [address] Low Vision Therapist: Crescencio Lal MD Spec. [place],Ur 1.020 Normal 1.010-1.020 [facility] Comment on above: Performed By: #### U MICAO, PRANAV, UAX #### [facility] [address] [place] [address] Dr. [place], [place] [phone] Low Vision Therapist: Crescencio Lal MD Urobilinogen,Ur Normal Normal 0.0-1.0 [facility] Comment on above: Performed By: #### U MICAO, PRANAV, UAX #### [address] [place] [address] Low Vision Therapist: Crescencio Lal MD Urinalysis,Microon 4 Casts 2 TO 5 Normal [facility] Comment on above: Result Comment: HYAL INE Performed By: #### U AALIYAHO, PRANAV, UAX #### [address] [place], [place] [phone] Low Vision Therapist: Crescencio Lal MD Epithelial cells LM Ql (Urine sed) None Normal 0-5 [facility] Comment on above: Performed By: #### U MICAO, PRANAV, UAX #### [address] [place] [address] Low Vision Therapist: Crescencio Lal MD Mucus Strands 1+ Abnormal NONE [facility] Comment on above: Performed By: #### U MICAO, PRANAV, UAX #### [address] [place] [address] Low Vision Therapist: Crescencio Lal MD Urine RBC's 0 TO 2 Normal 0-2 [facility] Comment on above: Performed By: #### U MICAO, PRANAV, UAX #### [facility] [address] [place] [address] Low Vision Therapist: Crescencio Lal MD Urine WBC's None Normal 0-5 [facility] Comment on above: Performed By: #### U MICAO, PRANAV, UAX #### [facility] [address] [place] [address] Low Vision Therapist: Crescencio Lal MD Office Visiton 01-16-2024 Follow-up visit [id number] Yi Driver 1955 [facility] Provider Department Center 01/16/2024 120-CATA BARAJAS Family History Problem Relation Age of Onset Coronary artery disease Sister Coronary artery disease Maternal Grandfather Family Status - Relation Status Age at Sister Maternal Grandfather Level of Service:25369 DE OFFICE/OUTPATIENT ESTABLISHED LOW MDM 20 MIN Reason for Visit and Comments: Hyperlipidemia [182] Hypertension [550650] - Pt here for three month follow up [facility] 36on 10-27-2023 36 Per ALG pt is to double coreg [facility] Telephoneon 10-24-2023 Telephone [id number] Yi Driver 1955 [facility] Provider Department Center 10/24/2023 113-MATHEUS GOMEZ HVCVASENDO [facility] Family History Problem Relation Age of Onset Coronary artery disease Sister Coronary artery disease Maternal Grandfather Family Status - Relation Status Age at Sister Maternal Grandfather [facility] 36on 10-15-2023 36 Patient called with BP's for you since you restarted carvedilol. 147/100 136/109 HR 115 143/106 HR 109 He takes carvedilol at 4am and 4pm. The readings he gave me were taking just before his second dose at 4pm. Did you want to change the dosage? Please advise. Thanks. [facility] Telephoneon 10-15-2023 Telephone [id number] Yi Driver 1955 [facility] Provider Department Center 10/15/2023 928-CHAU, SRIKANTH BH CARD [facility] Family History Problem Relation Age of Onset Coronary artery disease Sister Coronary artery disease Maternal Grandfather Family Status - Relation Status Age at Sister Maternal Grandfather Normal [facility] Office Visiton 10-10-2023 Follow-up visit [id number] Yi Driver 1955 M Date Provider Department Center 10/10/2023 3848-GLYNN GABRIEL CARD [facility] Family History Problem Relation Age of Onset Coronary artery disease Sister Coronary artery disease Maternal Grandfather Family Status - Relation Status Age at Sister Maternal Grandfather Level of Service:33507 DE OFFICE/OUTPATIENT ESTABLISHED LOW MDM 20 MIN Normal [facility] Orders Onlyon 10-10-2023 Orders Only [id number] Yi Driver Antonio 1955 M Date Provider Department Center 10/10/2023 895-ANA BOURGEOIS MARY [facility] Family History Problem Relation Age of Onset Coronary artery disease Sister Coronary artery disease Maternal Grandfather Family Status - Relation Status Age at Sister Maternal Grandfather Normal [facility] Office Visiton 10-07-2023 Follow-up visit [id number] Yi Driver Antonio 1955 M Date Provider Department Center 10/07/2023 80907-MEZARHERIBERTO GOINS HVCVASENDO [facility] [facility] Family History Problem Relation Age of Onset Coronary artery disease Sister Coronary artery disease Maternal Grandfather Family Status - Relation Status Age at Sister Maternal Grandfather Level of Service:06436 DE OFFICE/OP CONSLTJ NEW/EST PT HIGH MDM 55 MINUTES Reason for Visit and Comments: New Patient [632] - Ascending aortic aneurysm, Ref by Cata Barajas Normal [facility] 36on 09-22-2023 36 Regarding echo result from 09/12/2023: Srikanth. He was supposed to F/U with CT Surgery in August? See if he did somewhere other than [place], If not he needs an appointment. So [...] [facility]. Normal [facility] Office Visiton 05-30-2023 Follow-up visit [id number] Yi Driver 1955 M Date Provider [facility] 05/30/2023 120-CATA BARAJAS CARD [facility] Family History Problem Relation Age of Onset Coronary artery disease Sister Coronary artery disease Maternal Grandfather Family Status - Relation Status Age at Sister Maternal Grandfather Level of Service:92091 DE OFFICE/OUTPATIENT ESTABLISHED MOD MDM 30 MIN Normal [facility] COVID/FLU/RSV RT-PCRon 04-25 SARS-CoV-2 (COVID-19) RNA TEGAN+probe Ql (Unsp spec) Negative [place] [employer] Other COVID/FLU/RSV RT-PCR Negative [facility] [employer] Other Facesheeton 04-07-2023 Facesheet [id number] 6#[id number] [facility] Ambulatory Visit Summaryon 1 06-05-2022 Ambulatory [...] choosing us for your care. Normal [facility] Physician Referralon 023 Physician Referral [id number] #[id number] Normal [facility] ECHOCARDIO M/2D COMPLETEon 0 08-12-2022 ECHOCARDIO M/2D COMPLETE Patient: YI DRIVERPedro Exam Date: 08/12/2022 : 1955 Gender:M Ordering : RODOLFO RobinPedro BOWSER [facility] Admission #: [id number] Family : MICHAEL LATHAM . Order #: [id number] CLICK HERE TO VIEW EXAM ECHOCARDIOGRAM REPORT [...] on 08/12/2022 at 16:34 Normal [facility] INSULINon 12-10-2021 Insulin 14.3 uIU/mL Normal 2.6-24.9 [facility] Comment on above: Performed By: #### I NSULIN #### [facility] [address] [place], [place] [address] Dr. Neo Mccall TESTOSTERONE, TOTALon 2021 Testosterone [Mass/Vol] 269 ng/dL Normal 264-916 [facility] Comment on above: Result Comment: Adul t male reference interval is based on a population of healthy nonobese males (BMI <30) between 19 and 39 years old. Raya, et.al. JCEM 2017,102;6176-6274. PMID: [id number]. Performed By: #### T ESTTOT #### [facility] [address] [place], [place] [address] Dr. Neo Mccall OCC BLD IMMUNO SCREENon OCCULT BLOOD Negative Normal NEGATIVE [facility] Comment on above: Performed By: #### O BSCRN ####[facility] [address] [place], [place] [address]XpDr. Neo Mccall CBC AUTO DIFFon 12-07-2021 BASO # 0.1 103/ul Normal 0.0-0.1 [facility] Comment on above: Performed By: #### C BC #### [facility] [address] [place] [address] Dr. Neo Mccall Basophils/100 WBC (Bld) 0.9 % Normal 0.2-2.0 [facility] Comment on above: Performed By: #### C BC #### [facility] [address] [place] [address] Dr. Neo Mccall EO # 0.4 103/ul Normal 0.0-0.7 [facility] Comment on above: Performed By: #### C BC #### [facility] [address] [place] [address] Dr. Neo Mccall Eosinophils/100 WBC (Bld) 4.7 % Normal 0.9-7.0 [facility] Comment on above: Performed By: #### C BC #### [facility] [address] [place] [address] Dr. Neo Mccall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 section General Surgery [facility] Evaluation noteNo InformationN[employer] Other Evaluation noteNo assessment information available [facility] Work Phone: Evaluhjaws note* Diagnosis New onset seizure (CMS/HCC)- Primary Essential hypertension (CMS/HCC) Unspecified essential hypertension documented in this encounter [facility] N[facility]ative - Reported* Type Description Date Medical History hyperlipidemia Medical History hypertension Surgical History neck fusion Surgical History tonsilectomy Surgical History umbilical hernia repair Surgical History vasectomy Hospitalization History see above [facility] Other History general Narrative - Reported* Type Description Date Medical History hyperlipidemia Medical History hypertension Medical History COPD Medical History pulmonary hypertension Surgical History neck fusion Surgical History tonsilectomy Surgical History umbilical hernia repair Surgical History vasectomy Surgical History ankle fusion lt. Surgical History shoulder Hospitalization History see above [facility] Other Hisrfhs general Narrative - Reported* Type Description Date Medical History hyperlipidemia Medical History hypertension Medical History COPD Medical History pulmonary hypertension Medical History allergic rhinitis Medical History restrictive lung disease Surgical History neck fusion Surgical History tonsilectomy Surgical History umbilical hernia repair Surgical History vasectomy Surgical History ankle fusion lt. Surgical History shoulder Hospitalization History see above [facility] Other Hospital Discharge instructions No data available for this section General Surgery [facility] Progress note No data available for this section General Surgery [facility] Reason for referral (narrative)* Reason Appt: PENDING Refe rral for cough; TM irritation by hairs; globus sensation Diagnosis 1 Cough (R05.9) Referral Organization [facility] Referring Provider First Name Alphonso de leon Referring Provider Last Name Roshan Referring Provider Specialty Pulmonary D iseases Referred Organization [facility] Referred Provider Yarely Matthews Referred Address [address] [facility],[place], [place],[address] Referred Provider Specialty Ear, Nose an d Throat Referral Priority Routine [facility] Other Reason for visit Narrative* Self Referral (Routine) - Closed Specialty Diagnoses / Procedures Referred By Contac t Referred To Contact Neurology Diagnoses New onset seizures, seen @ [facility] PCP Dr latham Procedures NEURO NEW PATIENT Meet Carlos MD [address] [place] [address] Phone: tel: fax: Referral ID Status Reason Start Date Expiration Date Visits Re quested Visits Authorized [id number] Closed 03/02/2024 08/29/2024 1 1 [facility] [...] and content) DATE CREATED AUTHOR 07/08/2018 [facility] DATE CREATED AUTHOR AUTHOR'S ORGANIZ ATION 10/02/2020 [employer] DATE CREATED AUTHOR AUTHOR'S ORGANIZ ATION 08/18/2022 [facility] DATE CREATED AUTHOR AUTHOR'S ORGANIZ ATION 04/07/2023 [facility] DATE CREATED AUTHOR AUTHOR'S ORGANIZ ATION 06/13/2023 [facility] DATE CREATED AUTHOR AUTHOR'S ORGANIZ ATION 01/18/2024 [facility] DATE CREATED AUTHOR AUTHOR'S ORGANIZ ATION 01/27/2024 [facility] [place] [facility] DATE CREATED AUTHOR AUTHOR'S ORGANIZ ATION 02/22/2024 [facility] d[facility] Specialists EPIC REASON FOR VISIT (unrecogniz [...] Active Apolinar Islas MD Attending Provider Active Contracting Analyst Relationship Specialty Start Date End Date Michael Latham MD [address] [place] [id number] PCP - General Family Medicine 02/19/24 Goals [...] BE BASED ON THE PRIMARY CLINICAL RECORDS. [facility] [employer] [facility]. provides no warranty or guarantee of the accuracy or completeness of information in this document.
[2024-04-30 12:41] LABS: Internal Control Within Normal Limits; Occult Blood Positive
== END 2024-04-29 10:09 | disposition home or self-care (01) ==
LOC: LAB 10:08
PROVIDERS: PCP Family Medicine; Visit Provider Family Medicine
DX: Z00.00 Encounter for general adult medical examination without abnormal findings (principal)
CPT/HCPCS: G0328

== ENCOUNTER 2024-06-07 15:31 | Outpatient (OUT) | payer BC, SELFPAY ==
--- OUTSIDE RECORDS SUMMARY | 2024-06-07 15:35 | XMS_ITS | CCD ---
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 Role Phone PHYSICIAN, DEFAULT Admitting [...] Unavailable HOY ., DR RODRIGUEZ Consulting Unavailable pAolinar Islas Unavailable [phone] MD Michael Latham Primary Care Provider MD Apolinar Islas Attending Provider Michael Latham Primary Care Physician Haris LAWSON Attending Unavailable Apolinar Islas Attending Unavaila ble Apolinar Islas Admitting Unavaila Michael Garcia Primary Care Unavailable HERIBERTO GOINS Referring Unavailable HERIBERTO GOINS Attending Unavailable GLYNN GABRIEL Attending Unavailable CATA BARAJAS Attending Unavailable CATA BARAJAS Attending Unavailable BRISEIDA HERIBERTO Referring Unavailable BRISEIDA HERIBERTO Referring Unavailable BRISEIDA, HERIBERTO Referring Unavailable CATA FROST Attending Unavailable MICHAEL LATHAM Primary Care Unavailable Michael Latham MD Primary Care Provider [phone] APOLINAR STONE Attending Unavailable YARELY MATTHEWS Attending Unavailable MICHAEL LATHAM Referring Unavailable Michael Latham MD Primary Care Provider [phone] Allergies Allergy Classification Reported Allergen(s) Allergy Type Date of Onset Reaction(s) Facility (4 sources) Adhesive agent; Translations: [ADHESIVE] Drug allergy (disorder) 1 Redness of Skin [facility] Repository (3 sources) Amino Acids; Translations: [lisinopril] Drug Allergy [facility] Repository (2 sources) Adhesive bandage; Translations: [Adhesive Bandage] Drug allergy Eruption of skin (disorder) [facility] [place] (1 source) Lisinopril; Translations: [lisinopril] Drug Allergy Cough (finding) [facility] [place] (1 source) Doxazosin; Translations: [Cardura] Drug Allergy [facility] Repository (1 source) Adhesive agent Drug allergy (disorder) 3 [facility] Repository (3 sources) Lisinopril Propensity to adverse reactions 3 Cough [facility] Work Phone: (3 sources) Wound Dressing Adhesive Drug Intolerance 2 [facility] (1 source) Silicone adhesive tape Propensity to adverse reactions to drug 4 [facility] Medications Current Medications Medication Drug Class(es) Dates Sig (Normalized) Sig (Original) acetaminophen 325 mg / oxyCODONE hydrochloride 5 mg oral tablet (1 source) Opioid Agonist Start: 01-06-2020 take 1 tablet by mouth every six hours Oxycodone-Acetami nophen Active 1 TAB PO Q6H January 05, 2020 11:00pm sensor 200 actuat albuterol 0.09 mg/actuat dry powder inhaler (4 sources) beta2-Adrenergic Agonist Start: 03-19-2023 take 2 [...] Status: Ordered amLODIPine 10 mg oral tablet (8 sources) Dihydropyridine Calcium Channel Terrell Start: 04-04-2023 take 2 tablets by mouth in the morning amLODIPine (Norvasc) 10 MG tablet Take 20 mg by mouth in the morning. 04/04/2023 Active take 1 tablet by maribel th every twenty-four hours amLODIPine Besylate 10 MG 1 tablet Orall y Once a day Active ARIPiprazole 2 mg oral tablet (2 sources) Atypical Antipsychotic take 1 tablet by mouth every twenty-four hours ARIPiprazole 2 MG 1 tablet Orally Once a day Active Aspir-81 (2 sources) Aspir-81 Active aspirin 81 mg delayed release oral tablet (10 sources) Platelet Aggregation Inhibitor, Nonsteroidal Anti-inflammatory Drug Start: 020 take 1 tablet by mouth once daily aspirin 81 mg Oral EC Tab 81 mg = 1 tab(s), Oral, Daily, Refills(s) 0 Start Date: 03/19/23 Status: Ordered aspirin 81 MG ch ewable tablet Chew 1 tablet in the morning. Active atorvastatin 80 mg oral tablet (8 sources) HMG-CoA Reductase Inhibitor Start: 02-22-2021 take [...] hydrochloride 300 mg extended release oral tablet (8 sources) Aminoketone Start: 03-19-2023 take 1 tablet [...] day Active carvedilol 25 mg oral tablet (8 sources) alpha-Adrenergic Terrell, beta-Adrenergic Terrell Start: 10-22-2022 take 1 tablet by mouth in the morning carvedilol (Coreg) 25 MG tablet Take 25 mg by mouth in the morning and 25 mg in the evening. Take with meals. 10/22/2022 Active citalopram 20 mg oral tablet (1 source) Serotonin Reuptake Inhibitor take 1 tablet by mouth once daily citalopram (CELEXA) 20 MG tablet Take 1 tablet by mouth daily Active cloNIDine hydrochloride 0.3 mg oral tablet (12 sources) Central alpha-2 Adrenergic Agonist Start: 03-10-2020 [...] tablet by maribel th twice daily cloNIDine (CATAPRES) 0.3 MG tablet Take 1 tablet by mouth 2 times daily Active cloNIDine HCl Ac tive codeine [...] by mouth every four hours as needed guaiFENesin-Code ine 100-10 MG/5ML 10 mL as needed Orally every 4 hrs Dec, Active docosahexaenoic acid 120 mg / eicosapentaenoic acid 180 mg oral capsule (1 source) take 1 capsule by mouth once daily [place]-3 Fatty Acids (FISH OIL) 1000 MG capsule Take 1 capsule by mouth daily Active DULoxetine (2 sources) Serotonin and Norepinephrine [...] / vilanterol 0.025 mg/actuat dry powder inhaler (3 sources) Anticholinergic, Corticosteroid, beta2-Adrenergic Agonist Start: 11-27-2022 take 1 puff(s) by inhalation in the morning Rgryauyhajf-Mlltgkwxl-Gaotlm (Trelegy Ellipta) 100-62.5-25 MCG/ACT aerosol powder Inhale 1 puff in the morning. 11/27/2022 Active fluticasone / vilanterol (4 sources) Corticosteroid, beta2-Adrenergic Agonist Start: 02-22-2021 take [...] mg / irbesartan 150 mg oral tablet (8 sources) Thiazide Diuretic, Angiotensin 2 Receptor Terrell [...] 11:00pm levothyroxine sodium 0.075 mg oral tablet (5 sources) l-Thyroxine Start: 023 take 1 tablet by mouth before mealtime levothyroxine (Synthroid, Levoxyl) 75 MCG tablet Take 75 mcg by mouth in the morning. Take before meals. 03/19/2023 Active Start: 03-19-2023 take 1 tablet by maribel th once daily levothyroxine 75 mcg (0.075 mg) Tab 75 mcg = 1 tab(s), Oral, Daily, Refills(s) 0 Start Date: 03/19/23 Status: Ordered meloxicam 15 mg oral tablet (1 source) Nonsteroidal Anti-inflammatory Drug Start: 01-06-2020 take 15 mg by mouth once daily in the morning Meloxicam Active 15 MG PO Every morning January 05, 2020 11:00pm metoclopramide 10 mg oral tablet (5 sources) Dopamine-2 Receptor Antagonist Start: 04-04-2023 take 1 tablet by mouth in the morning, then take 1 tablet by mouth in the evening, then take 1 tablet by mouth at bedtime metoclopramide (Reglan) 10 MG tablet Take 10 mg by mouth in the morning and 10 mg in the evening and 10 mg before bedtime. 04/04/2023 Active take 1 tablet by maribel th four times daily metoclopramide (REGLAN) 10 MG tablet Karan e 1 tablet by mouth 4 times daily Active metoprolol tartrate 100 mg oral tablet (2 sources) beta-Adrenergic Terrell take 1 capsule by mouth once daily Metoprolol Succinate 100 MG 1 capsule Orally Once a day Active mirtazapine 30 mg oral tablet (8 sources) Start: 11-15- 2023 take 1 tablet by mouth at bedtime mirtazapine (Remeron) 30 MG tablet Take 30 mg by mouth at bedtime 03/19/2023 Active Multi Vitamin+ (1 source) Start: 2019 Multi Vitamin+ Refill(s) 0 Start Date: 01/05/20 Status: Ordered Multiple Vitamin (MULTIVITAMIN) TABS tablet (1 source) take 1 tablet by mouth once daily Multiple Vitamin (MULTIVITAMIN) TABS tablet Take 1 tablet by mouth daily Active Multiple Vitamins-Minerals (Multivitamin Men) tablet (3 sources) take 1 tablet by mouth in the morning Multiple Vitamins-Minerals (Multivitamin Men) tablet Take 1 tablet by mouth in the morning. Active Multiple Vitamins-Minerals (PRESERVISION AREDS PO) (1 source) Multiple Vitamins-Minerals (PRESERVISION AREDS PO) Take by mouth Active Multivitamin preparation (4 sources) Multivitamin Act eyal Multivitamin-Minerals -Lutein (Multivitamin 50 Plus) Tablet (1 source) Start: 2019 Multivitamin-Mineral s-Lutein (Multivitamin 50 Plus) Tablet Active 1 TAB PO Daily at bedtime January 05, 2020 11:00pm Naproxen (2 sources) Nonsteroidal Anti-inflammatory Drug Naproxen Active [place] 9-Jxs-Tdg-Fish Oil (Fish Oil) 1,200 (144-216) mg Capsule (1 source) Start: 2019 take 1 capsule by mouth once daily at bedtime [place] 3-Vdw-Pwy-Fish Oil (Fish Oil) 1,200 (144-216) mg Capsule Active 1200 CAP PO Daily at bedtime January 05, 2020 11:00pm omeprazole 40 mg delayed release oral capsule (4 sources) Proton Pump Inhibitor take 1 capsule by mouth once daily Omeprazole 40 MG 1 capsule 30 minutes before morning meal Orally Once a day Active oxyCODONE hydrochloride 5 mg oral capsule (1 source) Opioid Agonist Start: 2019 take 5 mg by mouth every eight hours Oxycodone Active 5 MG PO Q8H 10 3 January 07, 2020 pantoprazole 40 mg delayed release oral tablet (5 sources) Proton Pump Inhibitor Start: 2022 take 1 tablet by mouth before mealtime pantoprazole (ProtoNix) 40 MG EC tablet Take 40 mg by mouth in the morning. Take before meals. 04/04/2023 Active Probiotic (4 sources) Probiotic Active simvastatin 40 mg oral tablet (3 sources) HMG-CoA Reductase Inhibitor Start: 2019 take 40 mg by mouth once daily at bedtime Simvastatin Active 40 MG PO Daily at bedtime January 05, 2020 11:00pm spironolactone 25 mg oral tablet (2 sources) Aldosterone Antagonist Spironola ctone 25 MG 1 tablet Orally Active tamsulosin hydrochloride 0.4 mg oral capsule (1 source) alpha-Adrenergic Terrell Start: 2019 take 0.4 mg by mouth once daily in the morning Tamsulosin Active 0.4 MG PO Every morning January 05, 2020 11:00pm Testosterone (4 sources) Androgen Testosterone Act eyal tiZANidine 4 mg oral tablet (4 sources) Central alpha-2 Adrenergic Agonist Start: 2022 tiZANidine (Zanaflex) 4 MG tablet Take 8 mg by mouth at bedtime 11/30/2022 Active Trelegy Ellipta 200 mcg-62.5 mcg-25 mcg/inh inhalation powder (1 source) Start: 2022 take 1 puff(s) by inhalation once daily [...] 05, 2020 11:00pm January 07, 2020 7:54am iopamidol (ISOVUE-370) 76 % injection 75 mL (1 source) Start: 01-25-2024 End: 01-25-2024 take 1 dose intravenously once 75 mL, IntraVENous, IMG ONCE PRN, 1 dose, Starting on 01/25/24 at 1457, Until 01/25/24 at 1458, Other ketorolac tromethamine 10 mg oral tablet (1 [...] Episodic/Chronic Aortic; peripheral; and visceral artery aneurysms (8 sources) Aneurysm of ascending aorta; Translations: [Aortic ectasia, unspecified site] Onset: 07-25-2022 03-19-2023 Chronic Cardiac dysrhythmias (1 source) Palpitations; Translations: [Palpitations] 03-23-2021 Episodic Chronic obstructive pulmonary disease and bronchiectasis (8 sources) Chronic obstructive lung disease; Translations: [Chronic obstructive pulmonary disease, unspecified] Onset: 04-15-2023 03-19-2023 Chronic Conduction disorders (6 sources) Right bundle branch block; Translations: [Unspecified right bundle-branch block] Onset: 04-15-2023 03-19-2023 Chronic Diabetes mellitus without complication (4 sources) Diabetes mellitus; Translations: [Type 2 diabetes mellitus without complications] Onset: 04-15-2023 03-19-2023 Chronic Disorders of lipid metabolism (10 sources) Mixed hyperlipidemia; Translations: [Mixed hyperlipidemia] Onset: 12-07-2021 Chronic Epilepsy; convulsions (4 sources) Unspecified convulsions; Translations: [Seizure] Onset: 01-25-2024 02-19-2024 Episodic Esophageal disorders (5 sources) Gastro-esophageal reflux disease without esophagitis; Translations: [Laryngopharyngeal reflux] Onset: 04-18-2023 Chronic Essential hypertension (16 sources) Essential (primary) hypertension; Translations: [Essential hypertension] Onset: 02-11-2020 Resolved: 04-15-2023 Chronic Hyperplasia of prostate (4 sources) Benign prostatic hypertrophy with outflow obstruction; Translations: [Benign prostatic hyperplasia with lower urinary tract symptoms] Onset: 04-15-2023 07-17-2020 Chronic Mood disorders (4 sources) Depressive disorder; Translations: [Depression] Onset: 04-15-2023 03-19-2023 Chronic Osteoarthritis (15 sources) Arthritis of right glenohumeral joint; Translations: [...] Episodic Other nutritional; endocrine; and metabolic disorders (5 sources) Body mass index 40+ - severely [...] structures] 03-10-2020 Chronic Other upper respiratory disease (8 sources) Allergic rhinitis; Translations: [Allergic rhinitis, unspecified] Onset: 04-15-2023 03-19-2023 Chronic Other upper respiratory disease (1 source) Allergic rhinitis, unspecified Chronic Other upper respiratory infections (1 source) Acute upper respiratory infection, unspecified Episodic Spondylosis; intervertebral disc disorders; other back problems (4 sources) Cervical disc disorder; Translations: [Cervical disc [...] Da te Episodic/Chronic Calculus of urinary tract (7 sources) Kidney stone; Translations: [History of calculus of kidney] Onset: 02-11-2020 Resolved: 04-15-2023 01-05-2020 Episodic Genitourinary symptoms and ill-defined conditions (4 sources) Nocturia; Translations: [Nocturia] Onset: 04-15-2023 01-05-2020 Episodic Neoplasms of unspecified nature or uncertain behavior (4 sources) Neoplasm of uncertain behavior of skin; Translations: [Neoplasm of uncertain behavior of skin] Onset: 04-15-2023 09-23-2018 Episodic Other and unspecified benign neoplasm (4 sources) Benign neoplasm of bladder; Translations: [Benign neoplasm of bladder] Onset: 04-15-2023 02-22-2021 Episodic Other connective tissue disease (1 source) Unspecified rotator cuff tear or rupture of right shoulder, not specified as traumatic Onset: 04-10-2021 Resolved: 04-10-2021 Episodic Other injuries and conditions due to external causes (1 source) Contusion; Translations: [Unspecified multiple injuries, initial encounter] 01-25-2024 Episodic Other lower respiratory disease (6 sources) Chronic cough; Translations: [Chronic cough] Onset: 04-04-2023 Episodic Other non-traumatic joint disorders (1 source) Pain in right shoulder Onset: 04-10-2021 Resolved: 04-10-2021 Episodic Other nutritional; endocrine; and metabolic disorders (3 sources) Obesity; Translations: [Obesity, unspecified] Onset: 02-11-2020 Resolved: 04-15-2023 04-15-2023 Chronic Other screening for suspected conditions (not mental disorders or infectious disease) (5 sources) Encounter for screening for malignant neoplasm of rectum; Translations: [Encounter for screening for malignant neoplasm of prostate] Onset: 12-08-2021 Episodic Other skin disorders (4 sources) Multiple skin tags; Translations: [Other hypertrophic disorders of the skin] Onset: 04-15-2023 Resolved: 04-15-2023 09-23-2018 Episodic Other skin disorders (4 sources) Senile hyperkeratosis; Translations: [Actinic keratosis] Onset: [...] Value Interpretation Reference Range Facility CBC with Auto Differentialon 01-25-2024 Basophils (Bld) [#/Vol] 0.08 10*3/uL [facility] Basophils/100 WBC (Bld) 1 % 0 - 2 % [facility] Eosinophils (Bld) [#/Vol] 0.28 10*3/uL [facility] Eosinophils/100 WBC (Bld) 4 % 1 - 4 % [facility] Erythrocyte distribution width (RBC) [Ratio] 12.7 % 11.8 - 14.4 % [facility] Hematocrit (Bld) [Volume fraction] 36.3 % Low 40.7 - 50.3 % [facility] Hemoglobin (Bld) [Mass/Vol] 12.8 g/dL Low 13.0 - 17.0 g/dL [facility] Immature granulocytes (Bld) [#/Vol] 0.03 10*3/uL [facility] Immature granulocytes/100 WBC (Bld) 0 % 0 [facility] Interpretation and review of laboratory results Abnormal [facility] Lymphocytes/100 WBC (Bld) 18 % Low 24 - 43 % [facility] Lymphocytes/100 WBC (Bld) 1.45 % [facility] MCH (RBC) [Entitic mass] 32.7 pg 25.2 - 33.5 pg [facility] MCHC (RBC) [Mass/Vol] 35.3 g/dL High 28.4 - 34.8 g/dL [facility] MCV (RBC) [Entitic vol] 92.6 fL 82.6 - 102.9 fL [facility] Monocytes/100 WBC (Bld) 10 % 3 - 12 % [facility] Monocytes/100 WBC (Bld) 0.81 % [facility] Neutrophils/100 WBC (Bld) 67 % High 36 - 65 % [facility] Nucleated RBC/100 WBC (Bld) [Ratio] 0.0 % 0.0 per 100 WBC [facility] Platelet mean volume (Bld) [Entitic vol] 9.5 fL 8.1 - 13.5 fL [facility] Platelets (Bld) [#/Vol] 368 10*3/uL [facility] RBC (Bld) [#/Vol] 3.92 10*6/uL Low 4.21 - 5.7 7 m/uL [facility] Segmented neutrophils/100 WBC (Bld) 5.34 % [facility] WBC other (Bld) [#/Vol] 8.0 [facility] CBC with Diffon 01-25-2024 Abs. Basophil 0.08 k/uL Normal 0.00-0.20 [facility] Comment on above: Performed By: #### C OLIVIA CASTILLO, TROPI #### [facility] [address] [place] [address] [place] [address] Tapper Helper: Crescencio Lal MD Abs.Imm.Granulocyte 0.03 k/uL Normal 0.00-0.30 [facility] Comment on above: Performed By: #### C OLIVIA CASTILLO, TROPI #### [facility] [address] [place] [address] Dr. Garcia, [place] [address] Tapper Helper: Crescencio Lal MD Abs.Neutrophil (Seg) 5.34 k/uL Normal 1.50-8.10 [facility] Comment on above: Performed By: #### C OLIVIA CASTILLO, TROPI #### [address] [place] [address] Tapper Helper: Crescencio Lal MD Basophils/100 WBC (Bld) 1 % Normal 0-2 [facility] Comment on above: Performed By: #### C OLIVIA CASTILLO, TROPI #### [facility] [address] [place] [address] Tapper Helper: Crescencio Lal MD Eosinophils (Bld) [#/Vol] 0.28 10*3/uL Normal 0.00-0.44 [facility] Comment on above: Performed By: #### C DP, CP, TROPI #### [address] Garcia, [facility] Tapper Helper: Crescencio Lal MD Eosinophils/100 WBC (Bld) 4 % Normal 1-4 [facility] Comment on above: Performed By: #### C DP, CP, TROPI #### [address] [place] [id number] Tapper Helper: Crescencio Lal MD Erythrocyte distribution width (RBC) [Ratio] 12.7 % Normal 11.8-14.4 [facility] Comment on above: Performed By: #### C DP, CP, TROPI #### [address] Garcia, [place] [id number] Tapper Helper: Crescencio Lal MD Hematocrit (Bld) [Volume fraction] 36.3 % Low 40.7-50.3 [facility] Comment on above: Performed By: #### C DP, CP, TROPI #### [address] Garcia, [facility]83 Tapper Helper: Crescencio Lal MD Hemoglobin (Bld) [Mass/Vol] 12.8 g/dL Low 13.0-17.0 [facility] Comment on above: Performed By: #### C DP, CP, TROPI #### [address] Garcia, [place] [id number] Tapper Helper: Crescencio Lal MD Immature granulocytes/100 WBC (Bld) 0 % Normal 0 [facility] Comment on above: Performed By: #### C DP, CP, TROPI #### [facility] [address] [place], [place] [id number] Tapper Helper: Crescencio Lal MD Lymphocytes (Bld) [#/Vol] 1.45 10*3/uL Normal 1.10-3.70 [facility] Comment on above: Performed By: #### C DP, CP, TROPI #### [facility] [address] Garcia, [facility] Tapper Helper: Crescencio Lal MD Lymphocytes/100 WBC (Bld) 18 % Low 24-43 [facility] Comment on above: Performed By: #### C DP, CP, TROPI #### [address] [place] [address] Tapper Helper: Crescencio Lal MD MCH (RBC) [Entitic mass] 32.7 pg Normal 25.2-33.5 [facility] Comment on above: Performed By: #### C DP, CP, TROPI #### [address] Garcia, [facility]83 Tapper Helper: Crescencio Lal MD MCHC (RBC) [Mass/Vol] 35.3 g/dL High 28.4-34.8 [facility] Comment on above: Performed By: #### C DP, CP, TROPI #### [address] Garcia, [facility] ( Tapper Helper: Crescencio Lal MD MCV (RBC) [Entitic vol] 92.6 fL Normal 82.6-102.9 [facility] Comment on above: Performed By: #### C DP, CP, TROPI #### [address] [place] [address] Tapper Helper: Crescencio Lal MD Monocytes (Bld) [#/Vol] 0.81 10*3/uL Normal 0.10-1.20 [facility] Comment on above: Performed By: #### C DP, CP, TROPI #### [facility] [address] [place] [address] Tapper Helper: Crescencio Lal MD Monocytes/100 WBC (Bld) 10 % Normal 3-12 [facility] Comment on above: Performed By: #### C DP, CP, TROPI #### [facility] [address] [place] [address] Tapper Helper: Crescencio Lal MD Neutrophil (Seg) 67 % High 36-65 [facility] Comment on above: Performed By: #### C DP, CP, TROPI #### [facility] [address] [place] [address] Tapper Helper: Crescencio Lal MD NRBC Automated 0.0 per 100 WBC Normal 0.0 [facility] Comment on above: Performed By: #### C DP, CP, TROPI #### [address] Garcia, [facility]83 Tapper Helper: Crescencio Lal MD Platelet mean volume (Bld) [Entitic vol] 9.5 fL Normal 8.1-13.5 [facility] Comment on above: Performed By: #### C DP, CP, TROPI #### [address] [place] [address] Tapper Helper: Crescencio Lal MD Platelets (Bld) [#/Vol] 368 10*3/uL Normal 138-453 [facility] Comment on above: Performed By: #### C DP, CP, TROPI #### [address] [place], [place] [id number] Tapper Helper: Crescencio Lal MD RBC (Bld) [#/Vol] 3.92 10*6/uL Low 4.21-5.77 [facility] Comment on above: Performed By: #### C DP, CP, TROPI #### [address] [place] [address] Tapper Helper: Crescencio Lal MD WBC (Bld) [#/Vol] 8.0 10*3/uL Normal 3.5-11.3 [facility] Comment on above: Performed By: #### C DP, CP, TROPI #### [facility] [address] [place] [address] Tapper Helper: Crescencio Lal MD [facility] Albumin [Mass/Vol] 4.0 g/dL 3.5 - 5.2 g/dL [facility] Albumin/Globulin [Mass ratio] 1.8 {ratio} 1.0 - 2.5 [facility] ALP [Catalytic activity/Vol] 72 U/L 40 - 129 U/L [facility] ALT [Catalytic activity/Vol] 16 U/L 10 - 50 U/L [facility] Anion gap [Moles/Vol] 13 mmol/L 9 - 16 mmol/L [facility] AST [Catalytic activity/Vol] 19 U/L 10 - 50 U/L [facility] Bilirubin [Mass/Vol] 0.4 mg/dL 0.00 - 1.20 mg/dL [facility] Calcium [Mass/Vol] 9.4 mg/dL 8.6 - 10. 4 mg/dL [facility] Chloride [Moles/Vol] 104 mmol/L 98 - 10 7 mmol/L [facility] CO2 [Moles/Vol] 24 mmol/L 20 - 31 mmol/L [facility] Creatinine [Mass/Vol] 1.0 mg/dL 0.70 - 1.20 mg/dL [facility] Est, Glom Filt Rate 80 - [facility] Comment on above: These results are not intended for use [...] following therapy that affects renal tubular secretion. Glucose [Mass/Vol] 105 mg/dL High 74 - 99 mg/dL [facility] Interpretation and review of laboratory results Abnormal [facility] Potassium [Moles/Vol] 3.8 mmol/L 3.7 - 5.3 mmol/L [facility] Protein [Mass/Vol] 6.1 g/dL Low 6.6 - 8.7 g/dL [facility] Sodium [Moles/Vol] 141 mmol/L 136 - 145 mmol/L [facility] Urea nitrogen [Mass/Vol] 13 mg/dL 8 - 23 mg/dL [facility] Urea nitrogen/Creatinine [Mass ratio] 13 mg/mg 9 - [address] [facility] [address] HEAD WO CONTRASTon 2023 CT HEAD [...] MD 01/25/24 Edited Result - FINAL Normal [facility] CT Head WO contraston 2023 Addendum by Alyson Bolden MD on 01/25/2024 3:23 PM EDT ADDENDUM: Findings were communicated to Dr. Cata Frost by the CORE team on 01/25/2024 at 3:19 pm. [facility] No acute intracranial findings. [facility] EXAMINATION: CT OF THE HEAD WITHOUT CONTRAST [...] of the visualized skull or soft tissues. [facility] Alyson Bolden MD - 01/25/2024 EXAMINATION: CT OF THE HEAD WITHOUT CONTRAST [...] soft tissues. IMPRESSION: No acute intracranial findings. [facility] Radiology Study observation (narrative) [facility] CT Head WO contrastOrdered B y: Alyson Bolden on 01-25-2024 [facility] Work Phone: CTA HEAD NECK W CONTRASTon 0 01-25-2024 [...] Yuri Samuels MD 01/25/24 Final result Normal [facility] CTA Head vessels and Neck ve ssels W contrast Wallace 01-25-2024 Unremarkable CTA of the head and neck. [facility] EXAMINATION: CTA OF THE HEAD AND NECK [...] fluid collection. The freitas-white differentiation is maintained. [facility] Yuri Samuels MD - 01/25/2024 EXAMINATION: CTA OF THE HEAD AND NECK [...] Unremarkable CTA of the head and neck. [facility] Radiology Study observation (narrative) [facility] CTA Head vessels and Neck ve ssels W contrast IVOrdered By: Yuri Samuels on 01-25-2024 [facility] Work Phone: Comp Metabolic Profon 2023 Anion gap [Moles/Vol] 13 mmol/L Normal 9-16 [facility] Comment on above: Performed By: #### U PRANAV VARGAS, UAX #### [facility] [address] [place] [address] Tapper Helper: Crescencio Lal MD Chloride [Moles/Vol] 104 mmol/L Normal 98-107 [facility] Comment on above: Performed By: #### U PRANAV VARGAS, UAX #### [facility] [address] [place] [address] Tapper Helper: Crescencio Lal MD Sodium [Moles/Vol] 141 mmol/L Normal 136-145 [facility] Comment on above: Performed By: #### U MICAO, PRANAV, UAX #### [facility] [address] [place] [address] Tapper Helper: Crescencio Lal MD Potassium [Moles/Vol] 3.8 mmol/L Normal 3.7-5.3 [facility] Comment on above: Performed By: #### U MICAO, PRANAV, UAX #### [facility] [address] [place], [place] [id number] Tapper Helper: Crescencio Lal MD Albumin [Mass/Vol] 4.0 g/dL Normal 3.5-5.2 [facility] Comment on above: Performed By: #### U MICAO, PRANAV, UAX #### [facility] [address] [place] [address] Tapper Helper: Crescencio Lal MD Albumin/Glob Ratio 1.8 Normal 1.0-2.5 [facility] Comment on above: Performed By: #### U MICAO, PRANAV, UAX #### [address] [place] [address] Tapper Helper: Crescencio Lal MD Alkaline Phos 72 U/L Normal 40-129 [facility] Comment on above: Performed By: #### U MICAO, PRANAV, UAX #### [facility] [address] [place], [place] [id number] Tapper Helper: Crescencio Lal MD ALT [Catalytic activity/Vol] 16 U/L Normal 10-50 [facility] Comment on above: Performed By: #### U MICAO, PRANAV, UAX #### [facility] [address] [place] [address] Tapper Helper: Crescencio Lal MD AST [Catalytic activity/Vol] 19 U/L Normal 10-50 [facility] Comment on above: Performed By: #### U MICAO, PRANAV, UAX #### [facility] [address] [place] [address] Tapper Helper: Crescencio Lal MD Bilirubin [Mass/Vol] 0.4 mg/dL Normal 0.00-1.20 [facility] Comment on above: Performed By: #### U MICAO, PRANAV, UAX #### [facility] [address] [place], [facility] Tapper Helper: Crescencio Lal MD BUN/CRE Ratio 13 Normal 9-20 [facility] Comment on above: Performed By: #### U MICAO, PRANAV, UAX #### [facility] [address] [place], [place] [id number] Tapper Helper: Crescencio Lal MD Calcium [Mass/Vol] 9.4 mg/dL Normal 8.6-10.4 [facility] Comment on above: Performed By: #### U MICAO, PRANAV, UAX #### [facility] [address] [place] [address] [place] [address] Tapper Helper: Crescencio Lal MD CO2 [Moles/Vol] 24 mmol/L Normal 20-31 [facility] Comment on above: Performed By: #### U MICAO, PRANAV, UAX #### [facility] [address] [place] [address] Dr. [place], [facility] Tapper Helper: Crescencio Lal MD Creatinine [Mass/Vol] 1.0 mg/dL Normal 0.70-1.20 [facility] Comment on above: Performed By: #### U MICAO, PRANAV, UAX #### [facility] [address] [place] [address] Tapper Helper: Crescencio Lal MD GFR/1.73 sq M.predicted among non-blacks MDRD (S/P/Bld) [Vol rate/Area] 80 mL/min/{1.73_m2} Normal >60 [facility] Comment on above: Result Comment: [...] U MICAO, PRANAV, UAX #### [facility] [address] [place] [address] [place] [address] Tapper Helper: Crescencio Lal MD Glucose [Mass/Vol] 105 mg/dL High 74-99 [facility] Comment on above: Performed By: #### U AALIYAHO PRANAV, UAX #### [address] [place] [address] Tapper Helper: Crescencio Lal MD Protein [Mass/Vol] 6.1 g/dL Low 6.6-8.7 [facility] Comment on above: Performed By: #### U SAM PRANAV, UAX #### [address] [place] [address] Tapper Helper: Crescencio Lal MD Urea nitrogen [Mass/Vol] 13 mg/dL Normal 8-23 [facility] Comment on above: Performed By: #### U SAM PRANAV, UAX #### [address] [place] [address] Tapper Helper: Crescencio Lal MD Drug Scr, Abuse, Uron 2023 Amphetamine(s),Ur Negative Normal NEG [facility] Comment on above: Result Comment: C1KN M Performed By: #### U MICAO, PRANAV, UAX #### [facility] [address] [place] [address] [place] [address] Tapper Helper: Crescencio Lal MD Barbiturate(s),Ur Negative Normal NEG [facility] Comment on above: Result Comment: C200 NM Performed By: #### U MICAO, PRANAV, UAX #### [facility] [address] [place], [place] [id number] Tapper Helper: Crescencio Lal MD Benzodiazepine(s) Negative Normal NEG [facility] Comment on above: Result Comment: C200 NM Performed By: #### U MICAO, PRANAV, UAX #### [facility] [address] [place] [address] Dr. [place], [place] [id number] Tapper Helper: Crescencio Lal MD Buprenorphrine, Ur Negative Normal NEG [facility] Comment on above: Result Comment: C5NM Performed By: #### U MICAO, PRANAV, UAX #### [facility] [address] [place] [address] Dr. [place], [place] [phone] Tapper Helper: Crescencio Lal MD Cannabinoid(s),Ur Negative Normal NEG [facility] Comment on above: Result Comment: C50N M Performed By: #### U MICAO, PRANAV, UAX #### [facility] [address] [place] [address] Dr. [place], [place] [phone] Tapper Helper: Crescencio Lal MD Cocaine Metabolite Negative Normal [facility] Comment on above: Result Comment: C300 NM Performed By: #### U MICAO, PRANAV, UAX #### [facility] [address] [place] [address] Dr. [place], [place] [phone] Tapper Helper: Crescencio Lal MD Fentanyl, Urine Negative Normal NEG [facility] Comment on above: Result Comment: C5NM Performed By: #### U MICAO, PRANAV, UAX #### [facility] [address] [place] [address] [place] [address] Tapper Helper: Crescencio Lal MD Interpretive Info This method is a screening test to detect only these drug classes as part of a Normal [facility] Comment on above: Result Comment: medi ulysses workup. Confirmatory testing by another method should be ordered if clinically indicated. Performed By: #### U MICAO, PRANAV, UAX #### [facility] [address] [place] [address] [place] [address] Tapper Helper: Crescencio Lal MD Methadone Ql (U) Negative Normal NEG [facility] Comment on above: Result Comment: C300 NM Performed By: #### U AALIYAHO, PRANAV, UAX #### [facility] [address] [place] [address] Dr. [place], [place] [phone] Tapper Helper: Crescencio Lal MD Opiate(s), Ur Negative Normal NEG [facility] Comment on above: Result Comment: C300 NM UROPIC Performed By: #### U SAM PRANAV, UAX #### [address] [place] [address] Tapper Helper: Crescencio Lal MD Oxycodone, Urine Negative Normal NEG [facility] Comment on above: Result Comment: Cuto ff: 100 ng/ml Performed By: #### U SAM PRANAV, UAX #### [address] [place] [address] Tapper Helper: Crescencio Lal MD Phencyclidine, Ur Negative Normal NEG [facility] Comment on above: Result Comment: C25N M Performed By: #### U SAM PRANAV, UAX #### [address] [place] [address] Tapper Helper: Crescencio Lal MD Ethanolon 01-25-2024 Ethanol percent 0.002 % NINF - 0.010 % [facility] Ethanolamine [Mass/Vol] <10 NINF - 10 mg/dL [facility] Ethanol Alcoholon 01-25-2024 Ethanol [Mass/Vol] mg/dL Normal <10 [facility] Comment on above: Performed By: #### A LCB #### [address] [place] [address] Tapper Helper: Crescencio Lal MD Ethanol percent 0.002 % Normal <0.010 [facility] Comment on above: Performed By: #### A LCB #### [facility] [address] [place] [address] Tapper Helper: Crescencio Lal MD Glucose, Whole Bloodon 01-24 Glucose [Mass/Vol] 95 mg/dL 74 - 100 mg/dL [facility] Glucose [Mass/Vol] 95 mg/dL Normal 74-100 [facility] Microscopic Urinalysison Casts LM.LPF (Urine sed) [#/Area] 2 TO 5 HYALINE /LPF [facility] Epithelial cells LM.HPF (Urine sed) [#/Area] None [facility] Interpretation and review of laboratory results Abnormal [facility] Mucus Ql (Urine sed) 1+ Abnormal None [facility] RBC LM.HPF (Urine sed) [#/Area] 0 TO 2 [facility] WBC LM.HPF (Urine sed) [#/Area] None [facility] TSH w/reflex to FT4on 2023 Thyroid Stim. Horm. 1.37 uIU/mL Normal 0.27-4.20 [facility] Comment on above: Performed By: #### T SHX #### [facility] [address] [place] [address] Tapper Helper: Crescencio Lal MD TSH with Reflexon 01-25-2024 TSH Qn 1.37 m[IU]/L [facility] Troponinon 01-25-2024 Troponin I.cardiac High sensitivity method [Mass/Vol] 18 ng/L 0 - 22 ng/L [facility] Comment on above: High Sensitivity Tro ponin values cannot be compared with other Troponin methodologies. [facility] Troponin, High Sens 18 ng/L Normal 0-22 [facility] Comment on above: Result Comment: High Sensitivity Troponin values cannot be compared with other Troponin methodologies. Performed By: #### C DP, CP, TROPI #### [facility] [address] [place], [place] [phone] Tapper Helper: Crescencio Lal MD UA w/Reflex Cultureon 2023 Bilirubin, SemiQt,Ur Negative Normal NEG [facility] Comment on above: Performed By: #### U MICAO, PRANAV, UAX #### [facility] [address] [place], [place] [phone] Tapper Helper: Crescencio Lal MD Blood, Urine Negative Normal NEG [facility] Comment on above: Performed By: #### U MICAO, PRANAV, UAX #### [facility] [address] [place], [place] [phone] Tapper Helper: Crescencio Lal MD Clarity (U) Clear Normal CLEAR [facility] Comment on above: Performed By: #### U MICAO, PRANAV, UAX #### [facility] [address] [place], [place] [phone] Tapper Helper: Crescencio Lal MD Color (U) Yellow Normal YEL [facility] Comment on above: Performed By: #### U MICAO, PRANAV, UAX #### [facility] [address] [place] [address] Dr. [place], [place] [phone] Tapper Helper: Crescencio Lal MD Glucose Ql (U) Negative Normal NEG [facility] Comment on above: Performed By: #### U MICAO, PRANAV, UAX #### [facility] [address] [place], [place] [phone] Tapper Helper: Crescencio Lal MD Ketones Ql (U) Negative Normal NEG [facility] Comment on above: Performed By: #### U MICAO, PRANAV, UAX #### [facility] [address] [place], [place] [phone] Tapper Helper: Crescencio Lal MD Leukocyte esterase Test strip Ql (U) Negative Normal NEG [facility] Comment on above: Performed By: #### U MICAO, PRANAV, UAX #### [address] [place], [place] [phone] Tapper Helper: Crescencio Lal MD Nitrite,Ur Negative Normal NEG [facility] Comment on above: Performed By: #### U MICAO, PRANAV, UAX #### [address] [place], [place] 580[address]83 Tapper Helper: Crescencio Lal MD PH,Ur 6.5 Normal 5.0-9.0 [facility] Comment on above: Performed By: #### U MICAO, PRANAV, UAX #### [address] [place], [place] [phone] Tapper Helper: Crescencio Lal MD Protein Ql (U) TRACE Abnormal NEG [facility] Comment on above: Performed By: #### U MICAO, PRANAV, UAX #### [address] [place], [place] [phone] Tapper Helper: Crescencio Lal MD Spec. [place],Ur 1.020 Normal 1.010-1.020 [facility] Comment on above: Performed By: #### U MICAO, PRANAV, UAX #### [address] [place], [facility] Tapper Helper: Crescencio Lal MD Urobilinogen,Ur Normal Normal 0.0-1.0 [facility] Comment on above: Performed By: #### U MICAO, PRANAV, UAX #### [address] [place] [address] Tapper Helper: Crescencio Lal MD Urinalysis with Reflex to Cu ltureon 01-25-2024 Bilirubin Ql (U) Negative NEGATIVE [facility] Clarity (U) Clear Clear [facility] Color (U) Yellow Yellow [facility] Glucose Test strip (U) [Mass/Vol] Negative NEGATIVE mg/dL [facility] Hemoglobin Auto test strip Ql (U) Negative NEGATIVE [facility] Interpretation and review of laboratory results Abnormal [facility] Ketones (U) [Mass/Vol] Negative NEGATIVE mg/dL [facility] Leukocyte esterase Test strip Ql (U) Negative NEGATIVE [facility] Nitrite Ql (U) Negative NEGATIVE [facility] pH (U) 6.5 [pH] 5.0 - 9.0 [facility] Protein (U) [Mass/Vol] TRACE Abnormal NEGATIVE mg/dL [facility] Specific gravity (U) [Rel density] 1.020 1.010 - 1.020 [facility] Urobilinogen Qn (U) Normal 0.0 - 1. 0 EU/dL [facility] Urinalysis,Microon 4 Casts 2 TO 5 Normal [facility] Comment on above: Result Comment: HYAL INE Performed By: #### U MICAO, PRANAV, UAX #### [facility] [address] [place] [address] Tapper Helper: Crescencio Lal MD Epithelial cells LM Ql (Urine sed) None Normal 0-5 [facility] Comment on above: Performed By: #### U MICAO, PRANAV, UAX #### [facility] [address] [place] [address] Tapper Helper: Crescencio Lal MD Mucus Strands 1+ Abnormal NONE [facility] Comment on above: Performed By: #### U MICAO, PRANAV, UAX #### [facility] [address] [place] [address] Tapper Helper: Crescencio Lal MD Urine RBC's 0 TO 2 Normal 0-2 [facility] Comment on above: Performed By: #### U MICAO, PRANAV, UAX #### [facility] [address] [place], [place] [phone] Tapper Helper: Crescencio Lal MD Urine WBC's None Normal 0-5 [facility] Comment on above: Performed By: #### U MICAO, PRANAV, UAX #### [facility] [address] [place] [address] Tapper Helper: Crescencio Lal MD Urine Drug Screenon 01-25-20 24 Amphetamines Ql (U) Negative NEGATIVE [facility] Comment on above: C1KNM Barbiturates Screen Ql (U) Negative NEGATIVE [facility] Comment on above: C200NM Benzodiazepines Ql (U) Negative NEGATIVE [facility] Comment on above: C200NM Buprenorphine Ql (U) Negative NEGATIVE [facility] Comment on above: C5NM Cannabinoids Screen Ql (U) Negative NEGATIVE [facility] Comment on above: C50NM Cocaine Ql (U) Negative NEGATIVE [facility] Comment on above: C300NM fentaNYL Ql (U) Negative NEGATIVE [facility] Comment on above: C5NM Methadone Ql (U) Negative NEGATIVE [facility] Comment on above: C300NM Opiates Screen Ql (U) Negative NEGATIVE [facility] Comment on above: C300NM UROPIC oxyCODONE Ql (U) Negative NEGATIVE [facility] Comment on above: Cutoff: 100 ng/ml Phencyclidine Ql (U) Negative NEGATIVE [facility] Comment on above: C25NM Test Information This method is a screening test to detect only these drug classes as part of a medical workup. Confirmatory testing by another method should be ordered if clinically indicated. [facility] Office Visiton 01-16-2024 Follow-up visit [id number] Yi Driver 1955 M Date Provider Department Center 01/16/2024 CATA GATES Family History Problem Relation Age of Onset Coronary artery disease Sister Coronary artery disease Maternal Grandfather Family Status - Relation Status Age at Sister Maternal Grandfather Level of Service:01050 HI OFFICE/OUTPATIENT ESTABLISHED LOW MDM 20 MIN Reason for Visit and Comments: Hyperlipidemia [182] Hypertension [627832] - Pt here for three month follow up [facility] 36on 10-27-2023 36 Per ALG pt is to double coreg [facility] Telephoneon 10-24-2023 Telephone [id number] Yi Driver 1955 M Provider Department Center 10/24/2023 113-MATHEUS GOMEZ HVCVASENDO [facility] Family History Problem Relation Age of Onset Coronary artery disease Sister Coronary artery disease Maternal Grandfather Family Status - Relation Status Age at Sister Maternal Grandfather [facility] 36on 10-15-2023 36 Patient called with BP's for you since you restarted carvedilol. 147/100 136/109 HR 115 143/106 HR 109 He takes carvedilol at 4am and 4pm. The readings he gave me were taking just before his second dose at 4pm. Did you want to change the dosage? Please advise. Thanks. [facility] Telephoneon 10-15-2023 Telephone [id number] Yi Driver 1955 M Provider Department Center 10/15/2023 928-SRIKANTH RITCHIE [facility] Family History Problem Relation Age of Onset Coronary artery disease Sister Coronary artery disease Maternal Grandfather Family Status - Relation Status Age at Sister Maternal Grandfather [facility] Office Visiton 10-10-2023 Follow-up visit [id number] Yi Driver 1955 M Provider Department Center 10/10/2023 3848-GLYNN GABRIEL [facility] Family History Problem Relation Age of Onset Coronary artery disease Sister Coronary artery disease Maternal Grandfather Family Status - Relation Status Age at Sister Maternal Grandfather Level of Service:53341 HI OFFICE/OUTPATIENT ESTABLISHED LOW MDM 20 MIN [facility] Orders Onlyon 10-10-2023 Orders Only [id number] Yi Driver 1955 M Provider Department Center 10/10/2023 895-ANA BOURGEOIS [facility] Family History Problem Relation Age of Onset Coronary artery disease Sister Coronary artery disease Maternal Grandfather Family Status - Relation Status Age at Sister Maternal Grandfather Normal [facility] Office Visiton 10-07-2023 Follow-up visit [id number] Yi Driver 1955 M Date Provider Department Center 10/07/2023 27933-MHJRAHERIBERTO GOINS HVCVASENDO [facility] Family History Problem Relation Age of Onset Coronary artery disease Sister Coronary artery disease Maternal Grandfather Family Status - Relation Status Age at Sister Maternal Grandfather Level of Service:50150 HI OFFICE/OP CONSLTJ NEW/EST PT HIGH MDM 55 MINUTES Reason for Visit and Comments: New Patient [632] - Ascending aortic aneurysm, Ref by Cata Barajas [facility] 36on 09-22-2023 36 Regarding echo result from 09/12/2023: Srikanth. He was supposed to F/U with CT Surgery in August? See if he did somewhere other than [place], If not he needs an appointment. So [...] referral. Order entered for CT surgery at [facility]. Normal [facility] Office Visiton 05-30-2023 Follow-up visit [id number] Yi Driver 1955 M Date Provider Department Center 05/30/2023 120-CATA BARAJAS CARD [facility] Family History Problem Relation Age of Onset Coronary artery disease Sister Coronary artery disease Maternal Grandfather Family Status - Relation Status Age at Sister Maternal Grandfather Level of Service:45568 HI OFFICE/OUTPATIENT ESTABLISHED MOD MDM 30 MIN [facility] COVID/FLU/RSV RT-PCRon 12-22 -2023 SARS-CoV-2 (COVID-19) RNA TEGAN+probe Ql (Unsp spec) Negative [facility] Other COVID/FLU/RSV RT-PCR Negative [facility] Other Facesheeton 04-07-2023 Facesheet [id number] 6#1.00TIFF Normal [facility] Ambulatory Visit Summaryon 1 06-05-2022 Ambulatory [...] for choosing us for your care. Normal [facility] Physician Referralon 023 Physician Referral [id number] #1.00TIFF Normal [facility] ECHOCARDIO M/2D COMPLETEon 0 08-12-2022 ECHOCARDIO M/2D COMPLETE Patient: YI DRIVER Exam Date: 08/12/2022 : 1955 Gender:M Ordering : RODOLFO BOWSER [facility] Admission #: [id number] Family : DR MICHAEL LATHAM . Order #: [id number] CLICK HERE TO VIEW EXAM ECHOCARDIOGRAM REPORT [...] Capellan M.D. on 08/12/2022 at 16:34 Normal [facility] INSULINon 12-10-2021 Insulin 14.3 uIU/mL Normal 2.6-24.9 [facility] Comment on above: Performed By: #### I NSULIN #### [facility] [address] [address] [address] Neo Mccall TESTOSTERONE, TOTALon 2021 Testosterone [Mass/Vol] 269 ng/dL Normal 264-916 [facility] Comment on above: Result Comment: Adul t male reference interval is based on a population of healthy nonobese males (BMI <30) between 19 and 39 years old. tigist Dos Santos.al. JCEM 2017,102;2814-9665. PMID: [id number]. Performed By: #### T ESTTOT #### [facility] [address] [place] [address] Dr. Neo Mccall OCC BLD IMMUNO SCREENon OCCULT BLOOD Negative Normal NEGATIVE [facility] Comment on above: Performed By: #### O BSCRN ####[facility] [address] [address]Dr[address] Neo Mccall CBC AUTO DIFFon 12-07-2021 BASO # 0.1 103/ul Normal 0.0-0.1 [facility] Comment on above: Performed By: #### C BC #### [facility] [address] [place] [address] Dr. Noe Mccall Basophils/100 WBC (Bld) 0.9 % Normal 0.2-2.0 [facility] Comment on above: Performed By: #### C BC #### [facility] [address] [place] [address] Dr. Neo Mccall EO # 0.4 103/ul Normal 0.0-0.7 [facility] Comment on above: Performed By: #### C BC #### [facility] [address] [place] [address] Dr. Neo Mccall Eosinophils/100 WBC (Bld) 4.7 % Normal 0.9-7.0 [facility] Comment on above: Performed By: #### C BC #### [facility] [address] [place] [address] Dr. Neo Mccall Erythrocyte distribution width (RBC) [Ratio] 12.8 % Normal 11.0-15.0 [facility] Comment on above: Performed By: #### C BC #### [facility] [address] [place] [address] Dr. Neo Mccall Hematocrit (Bld) [Volume fraction] 42.7 % Normal 42.0-54.0 [facility] Comment on above: Performed By: #### C BC #### [facility] [address] [place] [address] Dr. Neo Mccall Hemoglobin (Bld) [Mass/Vol] 14.6 g/dL Normal 14.0-18.0 [facility] Comment on above: Performed By: #### C BC #### [facility] [address] [place] [address] Dr. Neo Mccall IG # 0.02 10e3/ul Normal 0.00-0.03 [facility] Comment on above: Performed By: #### C BC #### [facility] [address] [place] [address] Dr. Neo Mccall IG % 0.2 % Normal 0.0-0.5 [facility] Comment on above: Performed By: #### C BC #### [facility] [address] [place] [address] Dr. Neo Mccall LYMPH # 2.0 103/ul Normal 1.2-3.8 [facility] Comment on above: Performed By: #### C BC #### [facility] [address] [place] [address] Dr. Neo Mccall Lymphocytes/100 WBC (Bld) 22.9 % Normal 20.5-60.0 [facility] Comment on above: Performed By: #### C BC #### [facility] [address] [place] [address] Dr. Neo Mccall MANUAL DIFF REQ NO Normal [facility] Comment on above: Performed By: #### C BC #### [facility] [address] [place] [address] Dr. Neo Mccall MCH (RBC) [Entitic mass] 32.1 pg Normal 25.9-34.0 [facility] Comment on above: Performed By: #### C BC #### [facility] [address] [address] [address] Neo Mccall MCHC (RBC) [Mass/Vol] 34.2 g/dL Normal 29.9-35.2 [facility] Comment on above: Performed By: #### C BC #### [facility] [address] [address] [address] Neo Mccall MCV (RBC) [Entitic vol] 93.8 fL Normal 80.0-94.0 [facility] Comment on above: Performed By: #### C BC #### [facility] [address] [address] [address] Neo Mccall MONO # 0.8 103/ul Normal 0.3-0.8 [facility] Comment on above: Performed By: #### C BC #### [facility] [address] [place] [address] Dr. Neo Mccall Monocytes/100 WBC (Bld) 8.9 % Normal 1.7-12.0 [facility] Comment on above: Performed By: #### C BC #### [facility] [address] [place] [address] Dr. Neo Mccall NEUT # 5.4 103/ul Normal 1.4-6.5 [facility] Comment on above: Performed By: #### C BC #### [facility] [address] [address] [address] Neo Mccall Neutrophils/100 WBC (Bld) 62.4 % Normal 43.0-75.0 [facility] Comment on above: Performed By: #### C BC #### [facility] [address] [address] [address] Neo Mccall Platelet mean volume (Bld) [Entitic vol] 9.4 fL Critically low 9.5-13.5 [facility] Comment on above: Performed By: #### C BC #### [facility] [address] [address] [address] Neo Mccall PLT 321 103/ul Normal 150-450 [facility] Comment on above: Performed By: #### C BC #### [facility] [address] [address] [address] Neo Mccall RBC 4.55 106/ul Critically low 4.70-6.10 [facility] Comment on above: Performed By: #### C BC #### [facility] [address] [address] [address] Neo Mccall WBC 8.7 103/ul Normal 4.0-11.0 [facility] Comment on above: Performed By: #### C BC #### [facility] [address] [address] [address] Neo Mccall FREE THYROXINE INDEX T7on FTI 2.74 Normal 1.30-4.50 [facility] Comment on above: Performed By: #### T 7, TSH, CMP, LIPID #### [facility] [address] [address] [address] Neo Mccall T3U 33.0 % Normal 33.0-40.0 [facility] Comment on above: Performed By: #### T 7, TSH, CMP, LIPID #### [facility] [address] [address] [address] Neo Mccall T4 [Mass/Vol] 8.30 ug/dL Normal 4.50-12.10 [facility] Comment on above: Performed By: #### T 7, TSH, CMP, LIPID #### [facility] [address] [address] [address] Neo Mccall GLYCOHEMOGLOBIN A1Con 2021 ADA RECOMMENDATION SEE BELOW Normal [facility] Comment on above: Result Comment: ADA RECOMMENDED LIMIT 4.0 - 6.0 ADA THERAPEUTIC TARGET < 7.0 ACTION SUGGESTED > 7.0 Performed By: #### A 1C ####[facility] [id number] [address]Dr. Neo Mccall Glucose [Mass/Vol] 123 mg/dL Normal [facility] Comment on above: Performed By: #### A 1C ####[facility] [id number] [address]Dr. Neo Mccall HbA1c (Bld) [Mass fraction] 5.9 % Normal 4.5-6.2 [facility] Comment on above: Performed By: #### A 1C ####[facility] [id number] [address]Dr. Neo Mccall IRONon 12-07-2021 Iron [Mass/Vol] 127.0 ug/dL Normal 65.0-175.0 [facility] Comment on above: Performed By: #### P SASC, IRON #### [facility] [address] [address] [address] Neo Mccall LIPID PROFILEon 12-07-2021 CHOL-HDL RATIO NORM SEE BELOW Normal [facility] Comment on above: Result Comment: 3.3 - 4.4 LOW RISK 4.4 - 7.1 AVERAGE RISK 7.1 - 11.0 MODERATE RISK >11.0 HIGH RISK Performed By: #### T 7, TSH, CMP, LIPID #### [facility] [address] [address] [address] Neo Mccall Cholesterol [Mass/Vol] 192 mg/dL Normal <=200 [facility] Comment on above: Performed By: #### T 7, TSH, CMP, LIPID #### [facility] [address] [address] [address] Neo Mccall Cholesterol in HDL [Mass/Vol] 48 mg/dL Normal 40-60 [facility] Comment on above: Performed By: #### T 7, TSH, CMP, LIPID #### [facility] [address] [address] [address] Neo Mccall Cholesterol in LDL [Mass/Vol] 102.2 mg/dL Normal [facility] Comment on above: Performed By: #### T 7, TSH, CMP, LIPID #### [facility] [address] [address] [address] Neo Mccall Cholesterol.total/Ch olesterol in HDL [Mass ratio] 4.0 {ratio} Normal [facility] Comment on above: Performed By: #### T 7, TSH, CMP, LIPID #### [facility] [address] [address] [address] Neo Mccall HDL NORMAL > or = 60 mg/dl - LOW CARDIOVASCULAR RISK <40 mg/dl - HIGH CARDIOVASCULAR RISK Normal [facility] Comment on above: Performed By: #### T 7, TSH, CMP, LIPID #### [facility] [address] [address] [address] Neo Mccall LDL CALC NORMAL SEE BELOW Normal [facility] Comment on above: Result Comment: <100 mg/dl OPTIMAL 100 - 129 mg/dl NEAR OR ABOVE OPTIMAL 130 - 159 mg/dl BORDERLINE HIGH 160 - 189 mg/dl HIGH >190 mg/dl VERY HIGH Performed By: #### T 7, TSH, CMP, LIPID #### [facility] [address] [address] [address] Neo Mccall Triglyceride [Mass/Vol] 209 mg/dL Critically high <=150 [facility] Comment on above: Performed By: #### T 7, TSH, CMP, LIPID #### [facility] [address] [address] [address] Neo Mccall VLDL CALC 41.8 mg/dL Normal [facility] Comment on above: Performed By: #### T 7, TSH, CMP, LIPID #### [facility] [address] [address] [address] Neo Mccall PROF 14(COMP METB)on 022 Albumin [Mass/Vol] 4.2 g/dL Normal 3.4-5.[address] [facility] Comment on above: Performed By: #### T 7, TSH, CMP, LIPID #### [facility] [address] [address] [address] Neo Mccall Albumin/Globulin [Mass ratio] 1.3 {ratio} Normal [facility] Comment on above: Performed By: #### T 7, TSH, CMP, LIPID #### [facility] [address] [address] [address] Neo Mccall ALP [Catalytic activity/Vol] 96 U/L Normal 46-116 [facility] Comment on above: Performed By: #### T 7, TSH, CMP, LIPID #### [facility] [address] [address]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
--- NOTE | 2024-06-07 15:45 | XR_ITS ---
The [address] [address] Patient Name: YI VALVERDE MRN: [id number] date: 1955 Sex: M Assigned Patient Location: [facility] Current Patient Location: Accession/Order Number: [id number] Exam Date: 06/07/2024 15:40 Report Date: 06/10/2024 10:20 At the request of: MICHAEL BLANCO Procedure: XR knee LT 2V PROCEDURE: XR knee LT 2V COMPARISON: None. HISTORY: Knee Osteoarthritis FINDINGS: BONES:No fracture, acute abnormality, or significant arthropathy. SOFT TISSUES:Negative. No visible soft tissue swelling. EFFUSION:None visible. OTHER: Negative. XR/XR knee LT 2V IMPRESSION: No acute radiographic abnormality Electronically authenticated by: ALEKSEY MONSALVE Date: 06/10/2024 10:20
== END 2024-06-07 15:32 | disposition home or self-care (01) ==
LOC: RAD 15:31
PROVIDERS: PCP Family Medicine; Visit Provider Family Medicine
DX: M17.9 Osteoarthritis of knee, unspecified (principal)
CPT/HCPCS: 73560

== ENCOUNTER 2024-10-18 09:17 | Outpatient (OUT) | payer MEDICARE, SELFPAY ==
--- NOTE | 2024-10-18 10:00 | CA_ITS ---
Patient Name: YI VALVERDE MR#: [id number] : 1955 Exam Date: 10/18/2024 Ordering Doctor: DR AKHIL CAPELLAN M.D. ECHOCARDIOGRAM REPORT PROCEDURE: CA ECHO DOPPLER COMPLETE INDICATIONS: Ascending aortic aneurysm without rupture, hypertension COMPARISON: None. DESCRIPTION: COMPLETE ECHOCARDIOGRAM Real-time transthoracic echocardiography with 2D, M-mode, spectral and color flow Doppler performed. QUALITY: Technical quality was adequate. LEFT VENTRICLE: Normal chamber size. Mild to moderate concentric hypertrophy. Normal systolic function. LV EF: Normal left ventricular ejection fraction, (>55%). DIASTOLIC: Diastolic function is indeterminate. ATRIAL SEPTUM: Visually appears intact. LEFT ATRIUM: Normal chamber size. RIGHT ATRIUM: Normal chamber size. RIGHT VENTRICLE: Normal chamber size. Normal systolic function. TRICUSPID VALVE: Normal mobility and thickness. No stenosis with no regurgitation. Unable to assess right-sided pressures due to lack of measurable tricuspid regurgitation. MITRAL VALVE: Normal mobility and thickness. No evidence of mitral valve stenosis. There is no mitral annular calcification. No mitral regurgitation. AORTIC VALVE: Normal trileaflet appearance. No visible sclerosis. Normal leaflet mobility. No evidence of aortic valve stenosis. No aortic regurgitation. AORTIC ROOT: Aortic root is upper normal in size, measuring 4.0 cm. Ascending aorta is dilated (3.7 cm). Aortic arch is normal in size. PULMONIC VALVE: Normal thickness and mobility. No stenosis. Trivial regurgitation. PERICARDIUM: No evidence of pericardial effusion. IVC: Collapses with inspiration. IVC is dilated (2.3 cm). PLEURA: CONCLUSION: 1. Mild to moderate concentric left ventricular hypertrophy with normal systolic function. Estimated LVEF is 60 to 65%. 2. Normal right ventricular size and systolic function. 3. No significant valvular dysfunction. 4. Unable to assess right-sided pressures due to lack of measurable tricuspid regurgitation. 5. The aortic root is upper normal in size measuring 4.0 cm. The ascending aorta is mildly dilated measuring 3.7 cm. Adult Echocardiography Procedure Report Left Ventricle LVEDD (3.7 - 5.6 cm): 4.72 cm LVESD (2.2 - 4.0 cm): 3.43 cm LVIVS thickness (0.6 - 1.2 cm): 1.62 cm LVPW thickness (0.5 - 1.0 cm): 1.19 cm e': 0.04 m/s E - e': 13.88 LVOT Max Gradient: 1.66 mm[Hg] LVOT Area (cm2): 0.65 m/s Peak Velocity (LVOT): 0.65 m/s LVOT Diameter 2.56 cm Left Atrium Left Atrium Systolic Dimension: 3.89 cm Mitral Valve MV E to A Ratio: 0.93 Mitral Valve A-Wave Peak Velocity: 0.64 m/s Mitral Valve E-Wave Peak Velocity: 0.59 m/s Right Ventricle Aorta AO Root Diam: 4.00 cm Ascending Ao Diam: 3.73 cm Aortic Valve AoV Area (Peak Dago): 3.33 cm2, 3.33 cm2 Peak Velocity(Antegrade Flow): 1.00 m/s Peak Gradient(Antegrade Flow): 3.98 mm[Hg] Tricuspid Valve Pulmonic Valve Peak Velocity: 0.95 m/s Peak Gradient: 3.64 mm[Hg] Right Atrium Right Atrium Systolic Pressure: 52.80 ml, 52.80 ml Dictated by: Akhil Capellan M.D. on 10/18/2024 at 12:40 Approved by: Akhil Capellan M.D. on 10/18/2024 at 12:45
[2024-10-18 10:08] LABS: Anion Gap 13.4; BUN Creatinine Ratio 31.5; Carbon Dioxide 26.7 mmol/L (21.0-32.0); Chloride 107 mmol/L (98-107); Chol HDL Ratio 2.3; Cholesterol 111 mg/dL (<=200); Estimated GFR (African America >60 (>=60 mL/min/1.73m^2); Estimated GFR (Non-African Ame >60 (>=60 mL/min/1.73m^2); Glucose 124 mg/dL (74-106); HDL Cholesterol 49 mg/dL (40-60); LDL Cholesterol Calculated 36.6 mg/dL; Potassium 4.1 mmol/L (3.5-5.1); Sodium 143 mmol/L (136-145); Triglycerides 127 mg/dL (<=150); VLDL CHOLESTEROL 25.4 mg/dL
== END 2024-10-18 09:18 | disposition home or self-care (01) ==
PROVIDERS: PCP Family Medicine; Visit Provider Internal Medicine Interventional Cardiology
DX: E78.2 Mixed hyperlipidemia (principal); I71.21 Aneurysm of the ascending aorta, without rupture; I10 Essential (primary) hypertension
CPT/HCPCS: 36415; 80048; 80061; 93306